=== PATIENT | female | born 1945 | race Caucasian/White ===

== ENCOUNTER → 2017-06-04 | Outpatient (CLI) | payer MEDICARE ==
[~2017-06-04] MED LIST: ALB083NB3 NEB; CLOTRIMAZOLE15 GM TOP; CYMBALTA PO; CYMBALTA30 MG PO; CYMBALTA60 MG PO; FENTANYL1 EAC1 TOP; FINASTERIDE5 MG PO; GABAPENTIN600 MG PO; GLUCOPHAGE XL500 MG PO; IMDUR30 MG PO; LEVOCETIRIZINE D5 MG; LIPITOR20 MG PO; LISINOPRIL5 MG PO; LOPRESSOR25 MG PO; MAGNESIUM DR64 MG; MIRALAX17 GM; NEXIUM40 MG PO; NITROFURANTOIN PO; NORCO 10-325 T1 EACH PO; NORCO PO; NOVOLOG MI100 UNIT/1 SQ; NOVOLOG MIX 70-33 M1 SQ; NOVOLOG100 UNITS1 SQ; OMEPRAZOLE40 MG; OXYBUTYNIN CHLOR5 MG PO; POTASSIUM CHLOR8 ME1 PO; PRADAXA PO; PRADAXA150 MG; PREDNISONE10 MG PO; REQUIP2 MG PO; SUCRALFATE1 GM PO; TOPROL PO; TRAZODONE HCL50 MG PO; Z NEURONTIN PO; Z PRESERVISION PO; Z REQUIP PO; Z.0.ADVAIR 250-501 E IH; Z.0.IMDUR30 MG PO; Z.0.OXYBUTYNIN CHLOR PO; Z.0.TOVIAZ8 MG PO; Z.0.VYTORIN 10-201 E PO; ZAROXOLYN; ZAROXOLYN PO; ZAROXOLYN5 MG PO
--- NOTE | 2017-06-04 09:59 | Diagnostic Imaging Report ---
PROCEDURE:ABDOMINAL ULTRASOUND COMPARISON:None. INDICATIONS:Cirrhosis, Screening for malignant neoplasm FINDINGS: Liver: 15.3 cm. Normal hepatic parenchymal echogenicity. No focal mass. Main portal vein: 1.2 cm. Hepatopedal flow. Gallbladder: No echogenic calculi, gallbladder wall thickening, or pericholecystic fluid. Common Bile Duct: 3.0 mm. No echogenic filling defect. Sonographic Luis's sign: Negative. Right kidney: 11.6 cm. No solid or cystic mass, echogenic calculi, or hydronephrosis. Normal parenchymal echogenicity. Left kidney: 10.7 cm. No solid or cystic mass, echogenic calculi, or hydronephrosis. Normal parenchymal echogenicity. Spleen: 10.9 cm. No focal mass. Calcifications are present in the spleen. Pancreas: The visualized portions of the pancreas are normal. Inferior vena cava: Normal. Aorta: Normal. Ascites: None. CONCLUSION: No acute sonographic abnormality. Dictated by: Odilon Gallardo M.D. on 06/04/2017 at 10:00 Electronically approved by: Odilon Gallardo M.D. on 06/04/2017 at 10:00
== END ==
LOC: US 07:55
PROVIDERS: ATTEND Family Medicine
DX: K74.60 Unspecified cirrhosis of liver (principal); Z12.9 Encounter for screening for malignant neoplasm, site unspecified
CPT/HCPCS: 76700

== ENCOUNTER → 2017-12-03 | Outpatient (CLI) | payer MEDICARE ==
[~2017-12-03] MED LIST changes: +XIFAXAN550 MG
--- NOTE | 2017-12-04 13:37 | Diagnostic Imaging Report ---
PROCEDURE:ABDOMINAL ULTRASOUND COMPARISON:Abdominal ultrasound 05/25/17. INDICATIONS:CIRRHOSIS OF LIVER & ABDO PAIN FINDINGS: Liver: Measures 14.2 cm. Normal hepatic parenchymal echogenicity. No focal mass. Main portal vein: Measures 0.7 cm, Hepatopetal flow. Gallbladder: No evidence of wall thickening, pericholecystic fluid, or stone. Common Bile Duct: No echogenic filling defect. Measures 0.4 cm. Sonographic Luis's sign: Negative. Right kidney: Measures 10.4 cm. No solid or cystic mass, echogenic calculi, or hydronephrosis. Normal parenchymal echogenicity. Left kidney: Measures 10 cm. No solid or cystic mass, echogenic calculi, or hydronephrosis. Normal parenchymal echogenicity. Spleen: Measures 12.5 cm. Splenic calcifications are noted. Pancreas: There is a hypoechoic lesion measuring 1.6 x 1.2 x 1.6 cm in the head of the pancreas without demonstrated vascular flow. Inferior vena cava: Normal. Aorta: Atherosclerotic calcifications. Ascites: None. CONCLUSION: Hypoechoic pancreatic head lesion measuring up to 1.6 cm without demonstrated flow. This is incompletely characterized by ultrasound, and an MRI is recommended for further evaluation. Dictated by: FAY HICKMAN M.D. on 12/04/2017 at 13:45 Electronically approved by: FAY HICKMAN M.D. on 12/04/2017 at 13:45
== END ==
LOC: US 08:19
PROVIDERS: ATTEND Internal Medicine Gastroenterology
DX: R10.9 Unspecified abdominal pain (principal)
CPT/HCPCS: 76700

== ENCOUNTER → 2017-12-18 | Day surgery (SDC) | payer MEDICARE ==
[2017-12-16 12:22] LABS: BASOPHILS # (AUTO) 0.1 (0.0-0.1); BASOPHILS % 0.5 % (0.0-1.0); EOSINOPHILS # (AUTO) 0.3 (0.0-0.4); EOSINOPHILS % 3.1 % (0.0-6.0); HEMATOCRIT 41.9 % (34.2-44.1); LYMPHOCYTES # (AUTO) 2.1 (1.0-3.2); LYMPHOCYTES % 18.8 % (18.0-39.1); MEAN CORPUSCULAR HEMOGLOBIN 26.3 pg (28-32); MEAN CORPUSCULAR VOLUME 84.6 fL (81-99); MONOCYTES # (AUTO) 0.7 (0.2-0.8); MONOCYTES % 6.3 % (4.4-11.3); NEUTROPHILS # (AUTO) 7.8 (2.1-6.9); NEUTROPHILS % 70.9 % (38.7-80.0); PLATELET COUNT 232 x10e3/uL (140-360); RED BLOOD COUNT 4.95 x10e6/uL (3.6-5.1); RED CELL DISTRIBUTION WIDTH 14.7 % (11.7-14.4)
[~2017-12-18] MED LIST changes: +FENTANYL CITRATE/PF 100MCG/2 ML INJ ONE; +LIDOCAINE HCL 2% LOCAL INJ 5 ML SDV VIAL INJ ONE; +MIDAZOLAM HCL 2 MG/2 ML VIAL ONE; +ONDANSETRON HCL INJ 2 MG/ML VIAL ONE; +PROPOFOL IV EMULSION 10 MG/ML 50 ML VIAL ONE
--- OUTSIDE RECORDS SUMMARY | 2017-12-18 07:43 | XMS REPORT | Clinical Summary ---
Author Author OPAL [facility] Address Unknown Phone Unavailable Care Team Providers Care Director Of Finance Name Role Phone Tc Rider PCP Allergies Comments Active Allergy Reactions Severity Noted Date Baclofen 09/23/2016 Clindamycin 09/23/2016 Minocycline 09/23/2016 Promethazine 09/23/2016 Methocarbamol 09/23/2016 Medications End Date Status Medication Sig Dispensed Refills Start Date Active DULoxetine (CYMBALTA) 30 Take 30 mg by 0 MG capsule mouth 2 (two) times daily 30mg x2 in AM 30 mg x 1 in PM. Active finasteride (PROSCAR) 5 Take 2.5 mg 0 mg tablet by mouth daily. Active isosorbide mononitrate Take 30 mg by 0 (IMDUR) 30 MG 24 hr mouth daily. tablet Active lisinopril Take 5 mg by 0 (PRINIVIL,ZESTRIL) 5 MG mouth daily. tablet Active gabapentin (NEURONTIN) Take 600 mg 0 600 MG tablet by mouth 2 (two) times daily. Active oxybutynin (DITROPAN) 5 Take 5 mg by 0 MG tablet mouth 2 (two) times daily. Active omeprazole (PRILOSEC) 40 Take 40 mg by 0 MG capsule mouth daily. Active potassium chloride Take 8 mEq by 0 (KLOR-CON) 8 MEQ CR mouth daily. tablet Active rOPINIRole (REQUIP) 3 MG Take 3 mg by 0 tablet mouth nightly. Active sucralfate (CARAFATE) 1 Take 1 g by 0 gram tablet mouth 4 (four) times daily. Active metoprolol (TOPROL-XL) 25 Take 25 mg by 0 MG 24 hr tablet mouth daily. Active traZODone (DESYREL) 50 MG Take 50 mg by 0 tablet mouth nightly. Active metOLazone (ZAROXOLYN) 10 Take 10 mg by 0 MG tablet mouth 2 (two) times daily. Active fentaNYL (DURAGESIC) 75 Place 1 patch 5 patch 0 mcg/hr patch onto the skin 7 every third day. Max Daily Amount: 1 patch Active INSULIN LISPRO Inject 0 PROTAMIN/LISPRO (HUMALOG subcutaneousl MIX 75-25 KWIKPEN SUBQ) y 28 u daily. Active dabigatran (PRADAXA) 150 Take by mouth 0 mg Cap capsule 2 (two) times daily. Active ALBUTEROL INHL Inhale by 0 mouth via inhaler 2 (two) times daily . Active rifAXIMin 550 mg Tab Take 1 tablet 30 tablet 11 (550 mg 8 total) by mouth 2 (two) times daily. 10/29/2017 Discontinued levocetirizine (XYZAL) 5 Take 5 mg by 0 MG tablet mouth every evening. 10/29/2017 Discontinued morphine (MS CONTIN) 15 Take 1 tablet 0 MG 12 hr tablet (15 mg total) 7 by mouth every 8 (eight) hours as needed for Pain. Max Daily Amount: 45 mg 10/29/2017 Discontinued HYDROmorphone (DILAUDID) Take 4 mg by 0 4 MG tablet mouth every 8 (eight) hours as needed for Pain. Active Problems Problem Noted Date Cirrhosis 09/23/2016 Last Assessment & Plan: Cirrhosis diagnosis based on imaging findings of nodularity. No decompensation at this time. Due to a family history of liver cancer, she has requested a full work up for possible etiologies. Most likely due to non alcoholic fatty liver disease with risk factors of metabolic syndrome. Cirrhosis education was done today. Literature provided. Based on labs over the past 2 months, she appears stable. At this time, a liver biopsy would likely not change management coordinator. A comprehensive work up will be completed with recommendations to follow. Type 2 diabetes mellitus 09/23/2016 Immunity status testing 09/23/2016 Last Assessment & Plan: Serological tests will be completed to determine the presence of immunity to hepatitis A and B. If the patient does not have adequate immunity, we would recommend administration of appropriate vaccination as per CDC guidelines by the primary care provider. Review of recent immunization per patient report is the prevnar 13, and tetanus vaccine up date. Metabolic syndrome 09/23/2016 Last Assessment & Plan: Risk factors for metabolic syndrome include obesity, hyperlipidemia, type II DM and hypertension. Counseling done on diet modification since she will likely have difficult with exercise due to chronic pain syndromes. Weight loss goal of 1 pound per week is recommended. She has lost over 100 pounds through diet changes which likely has improved the suspected fatty liver. Screening for malignant neoplasm 09/23/2016 Last Assessment & Plan: Cirrhosis, regardless of etiology, is a risk factor for development of hepatocellular carcinoma. The annual incidence of HCC varies from 1.5-7%. Thus, we recommend surveillance for HCC be performed using contrast MRI or CT imaging and alphafetoprotein every [address] scan 07/2016 showed no suspicious masses. Follow up due in 6 months. Osteoarthritis of multiple joints 09/23/2016 Last Assessment & Plan: Reports treatment with fentanyl patch. This is acceptable. No NSAIDS should be used. Tylenol/acetaminophen should be limited to 2000 mg in 24 hours if needed. Encounters Care Team Description Date Type Specialty Chanda Reno MA 12/11/2017 Telephone Hepatology Chanda Reno MA Rec CD 12/09/2017 Telephone Hepatology Radha Neville RN needs our address 12/05/2017 Telephone Hepatology Radha Neville RN protein diet 11/18/2017 Telephone Hepatology Rebecca Hwang 11/03/2017 Abstract HepatRadha Egan RN 10/31/2017 Documentation Hepatology Gutierrez Melgoza MD Hall, Sophia Marie, NP Cirrhosis of liver without ascites, unspecified hepatic cirrhosis type (HCC) (Primary Dx); Type 2 diabetes mellitus with complication, unspecified whether middle or intermediate school principal insulin use (HCC); Immunity status testing; Metabolic syndrome; Screening for malignant neoplasm; Osteoarthritis of multiple joints, unspecified osteoarthritis type; Encephalopathy, portal systemic (HCC) 10/29/2017 Office Visit Hepatology Mack Al NP 08/29/2017 Documentation Hepatology Angie Khan 06/30/2017 Abstract Hepatology Rebecca Hwang 06/03/2017 Abstract HepatRadha Egan RN 06/02/2017 Documentation Hepatology Radha Neville RN 05/26/2017 Documentation Hepatology Radha Neville RN Labs Only 05/20/2017 Telephone Hepatology Gutierrez Melgoza MD Fuller, Arian [place], NP Cirrhosis of liver without ascites, unspecified hepatic cirrhosis type (HCC) (Primary Dx); Screening for malignant neoplasm; Osteoarthritis of multiple joints, unspecified osteoarthritis type; Immunity status testing; Metabolic syndrome 05/16/2017 Office Visit Hepatology after 12/17/2016 Immunizations Name Dates Previously Given Next Due Hepatitis A 05/22/2017 Hepatitis B 05/22/2017 Pneumococcal Conjugate 06/23/2016 (Prevnar) 13-Valent Tdap 07/24/2016 Family History Medical History Relation Name Comments Heart disease Brother Diabetes Father Heart disease Father Cancer Maternal Grandmother Cancer Mother Relation Name Status Comments Brother Father Maternal Grandmother Mother Social History Date Tobacco Use Types Packs/Day Years Used Never Smoker Alcohol Use Drinks/Week oz/Week Comments No Sex Assigned at Date Recorded Not on file Industry Job Start Date Occupation Not on file Not on file Not on file Travel End Travel History Travel Start No recent travel history available. Last Filed Vital Signs Time Taken Vital Sign Reading 10/29/2017 10:02 AM CDT Blood Pressure 114/65 10/29/2017 10:02 AM CDT Pulse 72 10/29/2017 10:02 AM CDT Temperature 36.8 C (98.3 F) 10/29/2017 10:02 AM CDT Respiratory Rate 16 10/29/2017 10:02 AM CDT Oxygen Saturation 93% - Inhaled Oxygen - Concentration 10/29/2017 10:02 AM CDT Weight 89.3 kg (196 lb 14.4 oz) 10/29/2017 10:02 AM CDT Height 151.1 cm (4' 11.5") 10/29/2017 10:02 AM CDT Body Mass Index 39.1 Plan of Treatment Care Team Description Date Type Specialty Gutierrez Melgoza MD [address] [address] [place], [facility] 04/27/2018 Office Visit Hepatology Health Maintenance Due Date Last Done Comments INFLUENZA VACCINE 11/17/2017 Procedures Comments Procedure Name Priority Date/Time Associated Diagnosis CBC W/PLT COUNT & AUTO Routine 10/29/2017 Cirrhosis of liver DIFFERENTIAL 11:22 AM CDT without ascites, unspecified hepatic cirrhosis type (HCC) ALPHA FETOPROTEIN (AFP), Routine 10/29/2017 Screening for malignant TUMOR MARKER 11:22 AM CDT neoplasm PROTHROMBIN TIME/INR Routine 10/29/2017 Cirrhosis of liver 11:22 AM CDT without ascites, unspecified hepatic cirrhosis type (HCC) CBC W/PLT COUNT & AUTO Routine 10/29/2017 Cirrhosis of liver DIFFERENTIAL 11:22 AM CDT without ascites, unspecified hepatic cirrhosis type (HCC) HEPATIC FUNCTION PANEL Routine 10/29/2017 Cirrhosis of liver 11:22 AM CDT without ascites, unspecified hepatic cirrhosis type (HCC) BASIC METABOLIC PANEL (7) Routine 10/29/2017 Cirrhosis of liver 11:22 AM CDT without ascites, unspecified hepatic cirrhosis type (HCC) after 12/17/2016 Results * CBC with platelet count + automated diff (10/29/2017 11:22 AM CDT) WBC 10.5 3.5 - 10.5 K/L [facility] RBC 5.12 3.93 - 5.22 M/L [facility] Hemoglobin 13.0 11.2 - 15.7 GM/DL [facility] Hematocrit 42.7 34.1 - 44.9 % [facility] MCV 83.4 79.4 - 94.8 fL [facility] MCH 25.4 (L) 25.6 - 32.2 pg [facility] MCHC 30.4 (L) 32.2 - 35.5 GM/DL [facility] RDW 15.1 (H) 11.7 - 14.4 % [facility] Platelets 272 150 - 450 K/CU MM [facility] MPV 11.5 9.4 - 12.3 fL [facility] nRBC 0 0 - 0 /100 WBC [facility] % Neutros 72 % [facility] % Lymphs 18 % [facility] % Monos 6 % [facility] % Eos 3 % [facility] % Baso 1 % [facility] # Neutros 7.56 (H) 1.56 - 6.13 K/L [facility] # Lymphs 1.88 1.18 - 3.74 K/L [facility] # Monos 0.65 (H) 0.24 - 0.36 K/L [facility] # Eos 0.33 0.04 - 0.36 K/L [facility] # Baso 0.06 0.01 - 0.08 K/L [facility] Immature 1 0 - 1 % [facility] Granulocytes-[facility] Specimen Blood Performing Organization Address City/State/[place] [address] [phone] * Alpha fetoprotein (AFP), tumor marker (10/29/2017 11:22 AM CDT) Alpha-Fetoprotein 2.3 <10.0 ng/mL [facility] Specimen Blood Performing Organization Address City/[facility]/[place] [phone] * Pro-time/INR (10/29/2017 11:22 AM CDT) Protime 16.4 (H) 11.7 - 14.7 seconds [facility] INR 1.3 <=5.9 [facility] Specimen Blood Narrative Performed At RECOMMENDED COUMADIN/WARFARIN INR THERAPY RANGES [facility] STANDARD DOSE: 2.0 - 3.0 Includes: PROPHYLAXIS for venous thrombosis, [facility] systemic embolization; TREATMENT for venous thrombosis and/or pulmonary embolus. HIGH RISK: Target INR is 2.5-3.5 for patients with mechanical heart valves. Performing Organization Address [facility] Phone Number [place] [phone] [place] [address] [facility] * Hepatic function panel (10/29/2017 11:22 AM CDT) Protein, Total 7.3 6.0 - 8.3 gm/dL [facility] Albumin 4.0 3.5 - 5.0 g/dL [facility] Total Bilirubin 0.5 0.2 - 1.2 mg/dL [facility] Bilirubin, Direct 0.2 0.1 - 0.5 mg/dL [facility] Alkaline Phosphatase 102 40 - 150 U/L [facility] AST 21 5 - 34 U/L [facility] ALT 13 6 - 55 U/L [facility] Specimen Blood Performing Organization Address City/[facility] Phone Number [facility] [address] [place] [address] [facility] * Basic Metabolic Panel (10/29/2017 11:22 AM CDT) Sodium 139 136 - 145 meq/L [facility] Potassium 3.3 (L) 3.5 - 5.1 meq/L [facility] Chloride 99 98 - 107 meq/L [facility] CO2 31 (H) 22 - 29 meq/L [facility] BUN 14 7 - 21 mg/dL [facility] Creatinine 0.80 0.57 - 1.25 mg/dL [facility] Glucose 94 70 - 105 mg/dL [facility] Calcium 9.5 8.4 - 10.2 mg/dL [facility] EGFR 70Comment: ESTIMATED GFR IS mL/min/1.73 sq m [facility] NOT ACCURATE CREATININE [facility] CLEARANCE IN PREDICTING GLOMERULAR FILTRATION RATE. ESTIMATED GFR IS NOT APPLICABLE FOR DIALYSIS PATIENTS. Specimen Blood Performing Organization Address City/State/Zipcode Phone Number [facility] [address] [place] [address] [facility] after 12/17/2016 Insurance Payer Benefit Subscriber ID Type Phone Address Plan / Group HU[employer] - MEDICARE MGD HUMANA xxxxxxxxx [facility] MEDICARE Contracted ADV
--- OUTSIDE RECORDS SUMMARY | 2017-12-18 07:44 | XMS REPORT | Summary of Care ---
Author Organization Unknown Address Unknown Phone Unavailable Encounter [facility](FRED) [id number] Date(s): 08/16/14 - 08/16/14 [facility] [address] [place] [address]- [phone] Discharge Disposition: Home Physician Attending: Nate Solo MD Physician_Referring: Nate Solo MD Vital Signs 1 2 3 Most recent to oldest [Reference Range]: 160.02 cm (08/10/14 2:21 PM) Height 98.7 DegF (08/10/14 2:21 PM) Temperature Oral [96.4-99.1 DegF] 110/62 mmHg (08/16/14 5:15 PM) 106/61 mmHg (08/16/14 4:30 PM) 151/72 mmHg *HI* (08/16/14 1:47 PM) Blood Pressure [90-140/60-90 mmHg] 15 BRMIN (08/16/14 4:30 PM) 12 BRMIN *LOW* (08/16/14 1:47 PM) 20 BRMIN (08/10/14 2:21 PM) Respiratory Rate [14-20 BRMIN] 60 bpm (08/10/14 2:21 PM) Peripheral Pulse Rate [60-100 bpm] 96.818 kg (08/10/14 2:21 PM) Weight 37.81 m2 (08/10/14 2:21 PM) Body Mass Index Problem List Condition Effective Dates Status Health Status Informant Aneurysm(Confirmed)1 Resolved Arthritis(Confirmed) Active Atrial Resolved fibrillation(Confirm ed) Back Active problem(Confirmed)2 CAD - Coronary Active artery disease(Confirmed) Cancer(Confirmed)3 Resolved Defibrillator(Confir Resolved med)4 Diabetes Active mellitus(Confirmed) Diabetic Active neuropathy(Confirmed ) Heart Resolved attack(Confirmed)5 MRSA(Confirmed) Resolved Patient with Active combination internal cardiac defibrillator (ICD) and pacemaker(Confirmed) Restless legs Active syndrome(Confirmed) Sarcoidosis(Confirme Resolved d) Shoulder Active pain(Confirmed)6 SOB - Shortness of Active breath(Confirmed)7 1brain bleed - [place] medically no surgery 2lower back 3scalp [id number] 6right 7with heavy activity Allergies, Adverse Reactions, Alerts Substance Reaction Severity Status clindamycin Active minocycline Active Phenergan Active Robaxin Active Medications Lactated Ringers Injection IV 1000 mL 1,000 mL, Rate: 25 ml/hr, Infuse over: 40 hr, Route: IV, Dosing Weight 96.818 kg , Total Volume: 1,000, Start date: 08/16/14 14:05:00, Duration: 30 day, Stop frankie e: 09/15/14 14:04:00 Start Date: 08/16/14 Stop Date: 08/16/14 Status: Discontinued Results ELECTROLYTES Most recent to 1 oldest [Reference Range]: Sodium Lvl [135-145 139 mEq/L mEq/L] (08/10/14 2:38 PM) Potassium Lvl 3.7 mEq/L [3.5-5.1 mEq/L] (08/10/14 2:38 PM) Chloride Lvl [95-109 98 mEq/L mEq/L] (08/10/14 2:38 PM) CO2 [24-32 mEq/L] 38 mEq/L *HI* (08/10/14 2:38 PM) AGAP [10.0-20.0 6.7 mEq/L mEq/L] *LOW* (08/10/14 2:38 PM) CHEM PANEL Most recent to 1 oldest [Reference Range]: Creatinine Lvl 0.7 mg/dL [0.5-1.4 mg/dL] (08/10/14 2:38 PM) eGFR 88 mL/min/1.73m2 1 *NA* (08/10/14 2:38 PM) BUN [7-22 mg/dL] 14 mg/dL (08/10/14 2:38 PM) Glucose Lvl [70-99 102 mg/dL 2 mg/dL] *HI* (08/10/14 2:38 PM) Calcium Lvl 9.6 mg/dL [8.5-10.5 mg/dL] (08/10/14 2:38 PM) 1Result Comment: The eGFR is calculated using the CKD-EPI formula. In most young, healthy individuals the eGFR will be >90 mL/min/1.73m2. The eGFR declines with age. An eGFR of 60-89 may be normal in some populations, particularly the elderly, for whom the CKD-EPI formula has not been extensively validated. Use of the eGFR is not recommended in the following populations: Individuals with unstable creatinine concentrations, including patients and those with serious co-morbid conditions. Patients with extremes in muscle mass or diet. The data above are obtained from the National Kidney Disease Education Program ( NKDEP) which additionally recommends that when the eGFR is used in patients with extremes of body mass index for purposes of drug dosing, the eGFR should be mul tiplied by the estimated BMI. 2Interpretive Data: Adult reference range values reflect the clinical guidelines of the [place] [employer]. HEMATOLOGY Most recent to 1 oldest [Reference Range]: Hgb [12.0-16.0 g/dL] 14.1 g/dL (08/10/14 2:38 PM) Hct [36.0-48.0 %] 42.9 % (08/10/14 2:38 PM) Immunizations No data available for this section Procedures Procedure Date Related Diagnosis Body Site Appendectomy Arthroscopy of knee1 Automatic defibrillator procedure Cataract surgery Coronary bypass graft angiography2 CTR - Carpal tunnel release3 Hernia repair Operation4 Repair of vaginal wall prolapse 1left and right [id number] 3bilateral 4insertion of defibrillator with pacemaker Social History Social History Type Response Smoking Status Never smoker; Exposure to Tobacco Smoke None; Cigarette Smoking Last 365 Days No; Reg Smoking Cessation Counseling No Assessment and Plan Extracted from: Title: lumbar facets and SI joint Author: Nate Solo MD Date: 08/16/14 injections OP note - lumbar facet and sacroiliac joint injection The procedure was performed at [facility] H&P, done within the past 30 days, was reviewed with patient prior to the procedure and patient denies significant changes. PATIENT NAME: Janice Brewer DATE OF : 43 REFERRAL SOURCE: Tessa Rhonda DATE OF PROCEDURE: 08/16/14 SURGEON: Nate Solo M.D. PRE-PROCEDURE DIAGNOSIS: LUMBOSACRAL SPONDYLOSIS POST-PROCEDURE DIAGNOSIS: LUMBOSACRAL SPONDYLOSIS PROCEDURES: Lumbar facet joint injections - bilateral L4-L5, L5-S1 Sacroiliac joint injection - bilateral .MD: FLUORO NEEDLE/CATH SPINE/PARASPINAL DX/THER : 12230 ANESTHESIA: total intravenous anesthetic (TIVA) ESTIMATED BLOOD LOSS: Minimal IV FLUIDS: Per anesthetic/nursing record COMPLICATIONS: None PROCEDURE IN DETAIL: The patient was identified in the procedure room. Risks, benefits, and alternatives were discussed, all questions were answered, and the patient desired to proceed. Consent was noted in the chart and a time out was performed. Then the patient was made comfortable in the prone position on the procedure table. Pressure points were checked and padded awake. Vital signs were stable. An antiseptic solution was used over the area followed by sterile draping. Fluoroscopy was used to optimize the approach over the facet joints. A skin wheal was raised with lidocaine 1% using a 25 gauge 1.5 inch needle and carried deep into the tissue plane of injection. A 22 gauge 3.5 inch spinal needle was advanced under fluoroscopic guidance through the anesthetized plane into the right L4-L5 facet joint. Then a similar technique was used for needle placement in the right L5-S1 and left L4-L5, L5-S1 facet joint. Aspiration was negative at each site. Then 1 ml a solution of 2mL triamcinolone 40 mg/mL, 4mL 0.9% normal saline, and 4mL bupivacaine 0.25% was injected into the each of the joints. The needles were then removed and noted to be intact. Pressure was held at the puncture sites to prevent ecchymosis and oozing. The sites were then cleaned and band-aids were placed. The following sacroiliac joint injection was also performed: Fluoroscopy was used to optimize the approach over the right sacroiliac joint. A skin wheal was raised with lidocaine 1% using a 25 gauge 1.5 inch needle and carried deep into the tissue plane of injection. Then a 22 gauge 3.5 inch spinal needle was advanced under fluoroscopic guidance through the anesthetized plane into the inferior pole of the right joint. Aspiration was negative. Then 0.5mL of Omnipaque 300 was injected demonstrating spread in the joint. Next, 8 ml of a solution of 2 mL triamcinolone 40mg/mL, 4mL 0.9% normal saline, and 4mL bupivacaine 0.25% was injected into the joint in equal divided doses showing dilution of the dye on fluoroscopy. The needle was withdrawn and noted to be intact. The same technique was used on the left joint. Pressure was held at the puncture site(s) to prevent ecchymosis and oozing, and covered by a band-aid. The patient was transferred to a stretcher and taken to the recovery area in stable condition. The patient tolerated the procedure well, suffered no apparent adverse events, and was then discharge to the care of a responsible adult when criteria met.
--- OUTSIDE RECORDS SUMMARY | 2017-12-18 07:44 | XMS REPORT | Continuity of Care Document ---
Author Author [facility] Interface Address Unknown Phone Unavailable Problems Problem Status Onset Date Classification Date Reported Comments Source UNK Active 08/09/2015 [facility] BIPAP S/T -43033 WITH OXYGEN Active 03/29/2015 [facility] BIPAP ST/ WITH O2 Active 03/29/2015 [facility] BIPAP S/T WITH OXYGEN 05427 Active 03/21/2015 [facility] BIPAP S/T -73048 Active 07/14/2014 [facility] 338.4/721.3 Active 06/01/2014 [facility] ASV TITRATION-07006 Active 05/05/2014 [facility] FIRST NIGHT-42845 Active 04/18/2014 [facility] LEAD EXTRACTION Active 09/13/2013 [facility] CHRONIC SYSTOLIC HEART FAILURE, ATRIAL F Active 09/13/2013 [facility] 428.22 427.31 427.41 V45.02 Active 09/09/2013 [facility] 836.0 836.1 717.7 732.7 719.26/85205 298 Active 02/04/2013 [facility] Aneurysm<sup>1</sup> Resolved Problem 08/19/2014 1brain bleed - [place] medically no surgery [facility] Arthritis Active Problem 08/19/2014 [facility] Atrial fibrillation Resolved Problem 08/19/2014 [facility] Back problem<sup>2</sup> Active Problem 08/19/2014 2lower back [facility] CAD - Coronary artery disease Active Problem 08/19/2014 [facility] Cancer<sup>3</sup> Resolved Problem 08/19/2014 3scalp [facility] Defibrillator<sup>4</sup> Resolved Problem 08/19/2014 [address]46 [facility] Diabetes mellitus Active Problem 08/19/2014 [facility] Diabetic neuropathy Active Problem 08/19/2014 [facility] Heart attack<sup>5</sup> Resolved Problem 08/19/2014 70480 [facility] MRSA Resolved Problem 08/19/2014 [facility] Patient with combination internal cardiac defibrillator and pacemaker(<span ID="[id number]">Confirmed</span>) Active Problem 08/19/2014 [facility] Restless legs syndrome Active Problem 08/19/2014 [facility] Sarcoidosis Resolved Problem 08/19/2014 [facility] Shoulder pain<sup>6</sup> Active Problem 08/19/2014 6right [facility] SOB - Shortness of breath<sup>7</sup> Active Problem 08/19/2014 7with heavy activity [facility] Rhabdomyolysis Active Problem 09/18/2013 [facility] SOB - Shortness of breath<sup>6</sup> Active Problem 09/18/2013 6with heavy activity [facility] CHR SYSTOLIC HRT FAILURE Active [facility] ATRIAL FIBRILLATION Active [facility] VENTRICULAR FIBRILLATION Active [facility] JOINT PAIN-ANKLE Active [facility] ENCOUNTER FOR OTHER PREPROCEDURAL EXAMIN Active [facility] OBSTRUCTIVE SLEEP APNEA (ADULT) (PEDIATR Active [facility] Medications Medication Details Route Status Patient Instructions Ordering Provider Order Date Source Calcium Chloride 0.0014 MEQ/ML / Potassium Chloride 0.004 MEQ/ML / Sodium Chloride 0.103 MEQ/ML / Sodium Lactate 0.028 MEQ/ML Injectable Solution 1,000 mL, Rate: 25 ml/hr, Infuse over: 40 hr, Route: IV, Dosing Weight 96.818 kg, Total Volume: 1,000, Start date: 08/16/14 14:05:00, Duration: 30 day, Stop date: 09/15/14 14:04:00 Inactive 08/16/2014 [facility] Acetaminophen 325 MG / Hydrocodone Bitartrate 10 MG Oral Tablet [Charlotte 10/325] 1-2 tab, PO, Q4-6H, Pain, # 24 tab, 0 Refill(s) Active 09/16/2013 [facility] minocycline 100 mg oral capsule 100 mg=1 cap, PO, Q12H, # 14 cap, 0 Refill(s) Active 09/16/2013 [facility] Mag-Ox 400 800 mg, 2 tab, Route: PO, Drug form: TAB, ONCE, Dosing Weight 95.909, kg, Start date: 09/16/13 10:17:00, Stop date: 09/16/13 10:17:00Notes: (Same as: Mag-Ox 400) Magnesium oxide [id number] elemental ma gnesium Dose=____mg magnesium oxide (___mg elemental magnesium) Inactive 09/16/2013 [facility] Lisinopril 5 mg, 1 tab, Route: PO, Drug form: TAB, Daily, Dosing Weight 95.909, kg, Start date: 09/16/13 9:00:00, Duration: 30 day, Stop date: 10/15/13 9:00:00Notes: (Same as: Prinivil, Zestril) Inactive 09/16/2013 [facility] Isosorbide 30 mg, 1 tab, Route: PO, Drug form: ERTAB, QAM, Dosing Weight 95.909, kg, Start date: 09/16/13 9:00:00, Duration: 30 day, Stop date: 10/15/13 9:00:00Notes: (Same as:Imdur) "Do Not Crush" Take on empty stomach/ full glass of water. Do not crush Inactive 09/16/2013 [facility] Cymbalta 60 mg, 1 cap, Route: PO, Drug form: DRC, Daily, Dosing Weight 95.909, kg, Start date: 09/16/13 9:00:00, Duration: 30 day, Stop date: 10/15/13 9:00:00Notes: (Same as: Cymbalta) (Do Not Crush) Inactive 09/16/2013 [facility] Potassium Chloride 16 mEq, 12 mL, Route: PO, Drug form: LIQ, Daily, Dosing Weight 95.909, kg, Start date: 09/16/13 9:00:00, Duration: 30 day, Stop date: 10/15/13 9:00:00Notes: (Same as: Potassium Chloride) Inactive 09/16/2013 [facility] Cymbalta 30 mg, 1 cap, Route: PO, Drug form: DRC, Bedtime, Dosing Weight 95.909, kg, Start date: 09/15/13 21:00:00, Duration: 30 day, Stop date: 10/14/13 21:00:00Notes: (Same as: Cymbalta) (Do Not Crush) No Longer Active 09/16/2013 [facility] vancomycin 1 gm, Route: IVPB, Drug form: INJ, [id number], Dosing Weight 95.909, kg, Start date: 09/15/13 20:00:00, Duration: 1 day, Stop date: 09/16/13 8:00:00Notes: (Same As: Vancocin) No Longer Active 09/16/2013 [facility] oxybutynin 5 mg, 1 tab, Route: PO, Drug form: TAB, BID, Dosing Weight 95.909, kg, Start date: 09/15/13 17:00:00, Duration: 30 day, Stop date: 10/15/13 9:00:00Notes: Same as: Ditropan) No Longer Active 09/15/2013 [facility] Zaroxolyn 5 mg, 1 tab, Route: PO, Drug form: TAB, BID, Dosing Weight 95.909, kg, Start date: 09/15/13 17:00:00, Duration: 30 day, Stop date: 10/15/13 9:00:00Notes: (Same as: Zaroxolyn) No Longer Active 09/15/2013 [facility] 24 HR Metoprolol Tartrate 25 MG Extended Release Tablet [Toprol] 25 mg, 1 tab, Route: PO, Drug form: ERTAB, BID, Start date: 09/15/13 17:00:00, Duration: 30 day, Stop date: 10/15/13 9:00:00Notes: (Same as: Toprol XL) Do Not Crush No Longer Active 09/15/2013 [facility] NovoLOG FlexPen 3 unit, 0.03 mL, Route: SUB-Q, Drug form: SOLN, BID, Dosing Weight 95.909, kg, Start date: 09/15/13 17:00:00, Duration: 30 day, Stop date: 10/15/13 9:00:00Notes: Roll in palms of hands gently; Do not shake vigorously. (Same as: NovoLOG) "single patient use only" Stable for 28 days at room temperature. Expires in days from Date No Longer Active 09/15/2013 [facility] gabapentin 600 MG Oral Tablet 600 mg, 2 cap, Route: PO, Drug form: CAP, BID, Dosing Weight 95.909, kg, Start date: 09/15/13 17:00:00, Stop date: 10/15/13 9:00:00Notes: (Same as: Neurontin) No Longer Active 09/15/2013 [facility] Potassium Chloride 1.33 MEQ/ML Oral Solution 40 mEq, 30 mL, Route: PO, Drug form: LIQ, ONCE, Dosing Weight 95.909, kg, Start date: 09/15/13 14:13:00, Stop date: 09/15/13 14:13:00Notes: (Same as: Potassium Chloride) Inactive 09/15/2013 [facility] Magnesium Sulfate 2 gm, 50 mL, Route: IVPB, Drug form: INJ, Q2H, Dosing Weight 95.909, kg, Total dose=4 gm, Priority: STAT, Start date: 09/15/13 13:30:00, Duration: 2 doses or times, Stop date: 09/15/13 14:00:00 Inactive 09/15/2013 [facility] Potassium Chloride 20 mEq, 100 mL, Route: IVPB, Drug form: INJ, Q2H, Dosing Weight 95.909, kg, Total dose=40 mEq, Priority: STAT, Start date: 09/15/13 13:30:00, Duration: 2 doses or times, Stop date: 09/15/13 14:00:00Notes: (Same as: KCL) Infuse no faster than 10 mEq/hr if given peripherally. Inactive 09/15/2013 [facility] Requip 3 mg, 3 tab, Route: PO, Drug form: TAB, TID, Dosing Weight 95.909, kg, Start date: 09/15/13 13:00:00, Duration: 30 day, Stop date: 10/15/13 9:00:00Notes: (Same as: Requip) No Longer Active 09/15/2013 [facility] Vancomycin 1 gm, Route: IVPB, Drug form: INJ, [id number], Dosing Weight 95.909, kg, Start date: 09/15/13 11:00:00, Duration: 1 day, Stop date: 09/15/13 23:00:00Notes: (Same As: Vancocin) Inactive 09/15/2013 [facility] Albuterol 0.83 MG/ML Inhalant Solution 2.49 mg, 3 mL, Route: NEB, Drug form: SOLN, PRN, Dosing Weight 95.909, kg, PRN Respiratory Protocol, Start date: 09/15/13 10:55:00, Duration: 30 day, Stop date: 10/15/13 10:54:00Notes: SEE RT DOCUMENTATION (Same as: Proventil) No Longer Active 09/15/2013 [facility] Hydralazine 10 mg, 0.5 mL, Route: IVP, Drug form: INJ, Q20Min, Dosing Weight 95.909, kg, PRN Elevated BP, Start date: 09/15/13 10:55:00, Duration: 2 doses or times, Stop date: 09/16/13 0:00:00Notes: (Same as: Apresoline) Push over 5 minutes No Longer Active 09/15/2013 [facility] Meperidine 12.5 mg, 0.25 mL, Route: IVP, Drug form: INJ, Q30Min, Dosing Weight 95.909, kg, PRN Other -See Comment, For shivering, Start date: 09/15/13 10:55:00, Duration: 2 doses or times, Stop date: 09/16/13 0:00 :00Notes: (Same as: Demerol) "Use Precaution in Elderly, Seizure disorders, and Renal impairment" No Longer Active 09/15/2013 [facility] Hydromorphone 0.5 mg, 0.25 mL, Route: IVP, Drug form: INJ, Q5Min, Dosing Weight 95.909, kg, PRN Pain Score 7-10, Start date: 09/15/13 10:55:00, Duration: 4 doses or times, Stop date: 09/16/13 0:00:00Notes: Same as: Dilaudid No Longer Active 09/15/2013 [facility] Morphine 2 mg, 0.5 mL, Route: IVP, Drug form: INJ, Q5Min, Dosing Weight 95.909, kg, PRN Pain Score 4-6, Start date: 09/15/13 10:55:00, Duration: 5 doses or times, Stop date: 09/16/13 0:00:00Notes: (Same as:MORPhine Sulfate) No Longer Active 09/15/2013 [facility] Flumazenil 0.2 mg, 2 mL, Route: IVP, Drug form: INJ, PRN, Dosing Weight 95.909, kg, PRN Benzodiazepine Reversal, Initial dose, Start date: 09/15/13 10:55:00, Duration: 30 day, Stop date: 10/15/13 10:54:00Notes: (Same as: Romazicon) No Longer Active 09/15/2013 [facility] Naloxone 0.04 mg, 0.1 mL, Route: IVP, Drug form: INJ, Q2MIN, Dosing Weight 95.909, kg, PRN Narcotic Reversal, Start date: 09/15/13 10:55:00, Duration: 8 doses or times, Stop date: 09/16/13 0:00:00Notes: (Same as: Narcan) No Longer Active 09/15/2013 [facility] Labetalol 10 mg, 2 mL, Route: IVP, Drug form: INJ, Q5Min, Dosing Weight 95.909, kg, PRN Elevated BP, Start date: 09/15/13 10:55:00, Duration: 5 doses or times, Stop date: 09/16/13 0:00:00 No Longer Active 09/15/2013 [facility] Fentanyl 25 microgram, 0.5 mL, Route: IVP, Drug form: INJ, Q5Min, Dosing Weight 95.909, kg, PRN Pain Score 4-6, Start date: 09/15/13 10:55:00, Duration: 4 doses or times, Stop date: 09/16/13 0:00:00Notes: (Same as: Sublimaze) Preservative free. No Longer Active 09/15/2013 [facility] Ondansetron 4 mg, 2 mL, Route: IVP, Drug form: INJ, ONCE, Dosing Weight 95.909, kg, PRN Nausea & Vomiting, Start date: 09/15/13 10:55:00Notes: (Same as: Zofran) No Longer Active 09/15/2013 [facility] Midazolam 1 mg, 1 mL, Route: IVP, Drug form: INJ, Q5Min, Dosing Weight 95.909, kg, PRN Anxiety, Start date: 09/15/13 10:55:00, Duration: 2 doses or times, Stop date: 09/16/13 0:00:00Notes: (Same as: Versed) No Longer Active 09/15/2013 [facility] Acetaminophen 325 MG / Hydrocodone Bitartrate 10 MG Oral Tablet [Charlotte 10/325] 1 tab, Route: PO, Drug Form: TAB, Dosing Weight 95.909, kg, Q4H, PRN Pain, Start date: 09/15/13 10:20:00, Duration: 30 day, Stop date: 10/15/13 10:19:00Notes: Do not exceed 4gm/day of acetaminophen. (Same as: Charlotte 325/10) No Longer Active 09/15/2013 [facility] Morphine 2 mg, 0.5 mL, Route: IVP, Drug form: INJ, Q4H, Dosing Weight 95.909, kg, PRN Chest Pain, Start date: 09/15/13 10:20:00, Duration: 30 day, Stop date: 10/15/13 10:19:00Notes: (Same as:MORPhine Sulfate) No Longer Active 09/15/2013 [facility] Metolazone 10 MG Oral Tablet 0 Refill(s) No Longer Active 09/15/2013 [facility] ropinirole 3 MG Oral Tablet [Requip] 0 Refill(s) Active 09/15/2013 [facility] dabigatran etexilate 150 MG Oral Capsule [Pradaxa] 0 Refill(s) No Longer Active 09/15/2013 [facility] Potassium Chloride 0 Refill(s) Active 09/15/2013 [facility] oxybutynin 5 mg oral tablet 0 Refill(s) Active 09/15/2013 [facility] gabapentin 600 MG Oral Tablet [Neurontin] 0 Refill(s) No Longer Active 09/15/2013 [facility] Miralax 0 Refill(s) Active 09/15/2013 [facility] isosorbide mononitrate 30 mg oral tablet, extended release 0 Refill(s) Active 09/15/2013 [facility] lisinopril 5 mg oral tablet 0 Refill(s) Active 09/15/2013 [facility] fentaNYL 100 mcg/hr transdermal film, extended release 0 Refill(s) Active 09/15/2013 [facility] Vancomycin 1.5 gm, Route: IVPB, Drug form: INJ, ONCE, Dosing Weight 95.909, kg, Start date: 09/15/13 8:20:00, Stop date: 09/15/13 8:20:00 Inactive 09/15/2013 [facility] ketorolac 30 mg/mL injectable solution 60 mg, Route: IM, Drug form: INJ, ONCE, Dosing Weight 100, kg, Start date: 02/11/13 10:27:00, Stop date: 02/11/13 10:27:00 Inactive Martínez 02/11/2013 [facility] Lactated Ringers IV 1000 mL 1,000 mL, Rate: 25 ml/hr, Infuse over: 40 hr, Route: IV, Dosing Weight 100 kg, Total Volume: 1,000, Start date: 02/11/13 10:06:00, Duration: 30 day, Stop date: 03/13/13 10:05:00 Inactive Jana 02/11/2013 [facility] ondansetron 4 mg, 2 mL, Route: IVP, Drug form: INJ, ONCE, Dosing Weight 100, kg, PRN Nausea & Vomiting, Start date: 02/11/13 9:46:00(Same as: Zofran) Inactive Kurtis 02/11/2013 [facility] metoprolol 1 mg, 1 mL, Route: IVP, Drug form: INJ, Q5Min, Dosing Weight 100, kg, PRN Other -See Comment, Start date: 02/11/13 9:46:00, Duration: 5 doses or times, Stop date: Limited # of times(Same as: Lopressor) Push over 2 minutes Inactive Kurtis 02/11/2013 [facility] OXYcodone 5 mg, 1 tab, Route: PO, Drug form: TAB, Q4H, Dosing Weight 100, kg, PRN Pain Score 4-6, Start date: 02/11/13 9:46:00, Duration: 30 day, Stop date: 03/13/13 9:45:00(Same as: OxyIR) Inactive Kurtis 02/11/2013 [facility] hydromorphone 0.5 mg, 0.5 mL, Route: IVP, Drug form: INJ, Q5Min, Dosing Weight 100, kg, PRN Pain Score 7-10, Start date: 02/11/13 9:46:00, Duration: 4 doses or times, Stop date: Limited # of times Inactive Kurtis 02/11/2013 [facility] fentanyl 25 microgram, 0.5 mL, Route: IVP, Drug form: INJ, Q5Min, Dosing Weight 100, kg, PRN Pain Score 4-6, Start date: 02/11/13 9:46:00, Duration: 4 doses or times, Stop date: Limited # of times(Same as: Sublimaze) Preservative free. Inactive Kurtis 02/11/2013 [facility] morphine Sulfate 2 mg, 1 mL, Route: IVP, Drug form: INJ, Q5Min, Dosing Weight 100, kg, PRN Pain Score 4-6, Start date: 02/11/13 9:46:00, Duration: 5 doses or times, Stop date: Limited # of times(Same as:MORPhine Sulf ate) Inactive Kurtis 02/11/2013 [facility] flumazenil 0.2 mg, 2 mL, Route: IVP, Drug form: INJ, PRN, Dosing Weight 100, kg, PRN Benzodiazepine Reversal, Initial dose, Start date: 02/11/13 9:46:00, Duration: 30 day, Stop date: 03/13/13 9:45:00(Same as: R omazicon) Inactive Kurtis 02/11/2013 [facility] diphenhydrAMINE 12.5 mg, 0.25 mL, Route: IVP, Drug form: INJ, Q6H, Dosing Weight 100, kg, PRN Itching, Start date: 02/11/13 9:46:00, Duration: 30 day, Stop date: 03/13/13 9:45:00(Same as: Benadryl) Inactive Kurtis 02/11/2013 [facility] glycopyrrolate 0.2 mg, 1 mL, Route: IVP, Drug form: INJ, Q5Min, Dosing Weight 100, kg, PRN Bradycardia, Start date: 02/11/13 9:46:00, Duration: 3 doses or times, Stop date: Limited # of times(Same as: Robinul) Inactive Kurtis 02/11/2013 [facility] ephedrine 5 mg, 0.1 mL, Route: IVP, Drug form: INJ, Q5Min, Dosing Weight 100, kg, PRN Low Blood Pressure, Start date: 02/11/13 9:46:00, Duration: 30 day, Stop date: 03/13/13 9:45:00(Same as: Ephedrine Sulfate) Inactive Kurtis 02/11/2013 [facility] naloxone 0.04 mg, 0.1 mL, Route: IVP, Drug form: INJ, Q2MIN, Dosing Weight 100, kg, PRN Narcotic Reversal, Start date: 02/11/13 9:46:00, Duration: 8 doses or times, Stop date: Limited # of timesSame as Narcan Inactive Kurtis 02/11/2013 [facility] vancomycin 1 gm, Route: IVPB, ONCE, Dosing Weight 100, kg, Start date: 02/11/13 8:24:00, Stop date: 02/11/13 8:24:00 Inactive Martínez 02/11/2013 [facility] Lactated Ringers Injection IV 1000 mL 1,000 mL, Rate: 25 ml/hr, Infuse over: 40 hr, Route: IV, Dosing Weight 100 kg, Total Volume: 1,000, Start date: 02/11/13 8:14:00, Duration: 30 day, Stop date: 03/13/13 8:13:00 Inactive Jana 02/11/2013 [facility] Charlotte 10/325 oral tablet 1-2 tab, PO, Q4-6H, Pain, # 30 tab, 0 Refill(s) Active 02/05/2013 [facility] NovoLog FlexPen 3 unit, SUB-Q, BID, 0 Refill(s) Active 02/05/2013 [facility] Novolog Mix 70/30 PenFill SUB-Q, QID, based on sliding scale, 0 Refill(s)based on sliding scale Active 02/05/2013 [facility] Pradaxa 150 mg oral capsule PO, BID, 0 Refill(s) Active 02/05/2013 [facility] Toprol-XL 25 mg oral tablet, extended release 25 mg=1 tab, PO, BID, # 30 tab, 0 Refill(s) Active 02/05/2013 [facility] Zaroxolyn 5 mg oral tablet 5 mg=1 tab, PO, BID, # 30 tab, 0 Refill(s) Active 02/05/2013 [facility] gabapentin 600 mg oral tablet 1,200 mg=2 tab, PO, BID, # 270 tab, 0 Refill(s) Active 02/05/2013 [facility] Cymbalta 30 mg oral delayed release capsule 30 mg=1 cap, PO, Bedtime, # 30 cap, 0 Refill(s) Active 02/05/2013 [facility] Cymbalta 60 mg oral delayed release capsule 60 mg=1 cap, PO, Daily, # 30 cap, 0 Refill(s) Active 02/05/2013 [facility] Allergies, Adverse Reactions, Alerts Substance Category Reaction Severity Reaction type Status Date Reported Comments Source clindamycin Assertion Drug allergy Active [facility] minocycline Assertion Drug allergy Active [facility] Phenergan Assertion Drug allergy Active [facility] Robaxin Assertion Drug allergy Active [facility] Immunizations Immunization Date Given Site Status Last Updated Comments Source Results Order Name Results Value Reference Range Date Interpretation Comments Source ELECTROLYTES Sodium Lvl 139 meq/L 135 - 145 08/10/2014 [facility] ELECTROLYTES Potassium Lvl 3.7 meq/L 3.5 - 5.1 08/10/2014 [facility] ELECTROLYTES Chloride Lvl 98 meq/L 95 - 109 08/10/2014 [facility] ELECTROLYTES eGFR 88 mL/min/1.73m2 08/10/2014 1Result Comment: The eGFR is calculated using [...] from the National Kidney Disease Education Program (NKDEP) which additionally recommends that when the eGFR is used in patients with extremes of body mass index for purposes of drug dosing, the eGFR should be multiplied by the estimated BMI. [facility] ELECTROLYTES Calcium Lvl 9.6 mg/dL 8.5 - 10.5 08/10/2014 [facility] ELECTROLYTES Creatinine Lvl 0.7 mg/dL 0.5 - 1.4 08/10/2014 [facility] ELECTROLYTES CO2 38 meq/L 24 - 32 08/10/2014 [facility] ELECTROLYTES Glucose Lvl 102 mg/dL 70 - 99 08/10/2014 2Interpretive Data: Adult reference range values reflect the clinical guidelines of the [place] [employer]. [facility] ELECTROLYTES BUN 14 mg/dL 7 - 22 08/10/2014 [facility] ELECTROLYTES AGAP 6.7 meq/L 10.0 - 20.0 08/10/2014 [facility] HEMATOLOGY Hct 42.9 % 36.0 - 48.0 08/10/2014 [facility] HEMATOLOGY Hgb 14.1 g/dL 12.0 - 16.0 08/10/2014 [facility] Chest 2 views Chest 2 views CHEST 2 VIEWS dated 2013-09-16 11:59:00 COMPARISON: 09/15/2013 CLINICAL INDICATION: Tube placement/removal/reposition FINDINGS: Frontal and lateral chest radiographs are submitted for interpretation. Note again of left subclavian approach biventricular pacer/ICD with leads in right ventricle and through the coronary sinus. No pneumothorax or pleural effusions. Lung volumes are low. Subsegmental atelectasis is seen within left lower lobe. Cardiac silhouette and mediastinum are unchanged. IMPRESSION: Satisfactory appearance of biventricular pacer/ICD. 09/16/2013 - - Read by: Binu Arellano MD Dictated Date/time: 09/16/13 12:41 Electronically Signed by: Binu Arellano MD 09/16/13 12:43 FINAL REPORT [facility] CHEM PANEL Magnesium Lvl 1.4 mg/dL 1.8 - 2.4 09/16/2013 [facility] CHEM PANEL eGFR 107 mL/min/1.73m2 09/16/2013 3Result Comment: The eGFR is calculated using the [...] from the National Kidney Disease Education Program (NKDEP) which additionally recommends that when the eGFR is used in patients with extremes of body mass index for purposes of drug dosing, the eGFR should be multiplied by the estimated BMI. [facility] CHEM PANEL Chloride Lvl 103 meq/L 95 - 109 09/16/2013 [facility] CHEM PANEL CO2 26 meq/L 24 - 32 09/16/2013 [facility] CHEM PANEL Calcium Lvl 8.5 mg/dL 8.5 - 10.5 09/16/2013 [facility] CHEM PANEL BUN 11 mg/dL 7 - 22 09/16/2013 [facility] CHEM PANEL Glucose Lvl 108 mg/dL 70 - 99 09/16/2013 6Interpretive Data: Adult reference range values reflect the clinical guidelines of the [place] [employer]. [facility] CHEM PANEL Creatinine Lvl 0.4 mg/dL 0.5 - 1.4 09/16/2013 [facility] CHEM PANEL Sodium Lvl 141 meq/L 135 - 145 09/16/2013 [facility] CHEM PANEL Potassium Lvl 4.3 meq/L 3.5 - 5.1 09/16/2013 [facility] CHEM PANEL AGAP 16.3 meq/L 10.0 - 20.0 09/16/2013 [facility] HEMATOLOGY Segs 83.9 % 45.0 - 75.0 09/16/2013 [facility] HEMATOLOGY Eosinophils 2.5 % 0.0 - 4.0 09/16/2013 [facility] HEMATOLOGY Monocytes # 0.9 K/CMM 0.0 - 0.8 09/16/2013 [facility] HEMATOLOGY Segs-Bands # 10.2 K/CMM 1.5 - 8.1 09/16/2013 [facility] HEMATOLOGY Lymphocytes 6.2 % 20.0 - 40.0 09/16/2013 [facility] HEMATOLOGY Monocytes 7.1 % 2.0 - 12.0 09/16/2013 [facility] HEMATOLOGY Lymphocytes # 0.8 K/CMM 1.0 - 5.5 09/16/2013 [facility] HEMATOLOGY Basophils 0.3 % 0.0 - 1.0 09/16/2013 [facility] HEMATOLOGY Eosinophils # 0.3 K/CMM 0.0 - 0.5 09/16/2013 [facility] HEMATOLOGY MPV 10.5 fL 7.4 - 10.4 09/16/2013 [facility] HEMATOLOGY Platelet 191 K/CMM 133 - 450 09/16/2013 [facility] HEMATOLOGY RDW 14.7 % 11.5 - 14.5 09/16/2013 [facility] HEMATOLOGY MCHC 32.2 g/dL 32.0 - 36.0 09/16/2013 [facility] HEMATOLOGY Hct 41.0 % 36.0 - 48.0 09/16/2013 [facility] HEMATOLOGY Hgb 13.2 g/dL 12.0 - 16.0 09/16/2013 [facility] HEMATOLOGY RBC 4.71 M/CMM 4.20 - 5.40 09/16/2013 [facility] HEMATOLOGY WBC 12.2 K/CMM 3.7 - 10.4 09/16/2013 [facility] HEMATOLOGY MCV 87.0 fL 81.0 - 99.0 09/16/2013 [facility] HEMATOLOGY MCH 28.0 pg 27.0 - 31.0 09/16/2013 [facility] ELECTROLYTES Potassium Lvl 4.0 meq/L 3.5 - 5.1 09/16/2013 1Result Comment: Specimen Slightly Hemolyzed. [facility] CHEM PANEL Magnesium Lvl 1.8 mg/dL 1.8 - 2.4 09/15/2013 [facility] CHEM PANEL eGFR 99 mL/min/1.73m2 09/15/2013 4Result Comment: The eGFR is calculated using the [...] from the National Kidney Disease Education Program (NKDEP) which additionally recommends that when the eGFR is used in patients with extremes of body mass index for purposes of drug dosing, the eGFR should be multiplied by the estimated BMI. [facility] CHEM PANEL AGAP 9.0 meq/L 10.0 - 20.0 09/15/2013 [facility] CHEM PANEL Calcium Lvl 8.4 mg/dL 8.5 - 10.5 09/15/2013 [facility] CHEM PANEL CO2 30 meq/L 24 - 32 09/15/2013 [facility] CHEM PANEL Chloride Lvl 104 meq/L 95 - 109 09/15/2013 [facility] CHEM PANEL Sodium Lvl 140 meq/L 135 - 145 09/15/2013 [facility] CHEM PANEL Creatinine Lvl 0.5 mg/dL 0.5 - 1.4 09/15/2013 [facility] CHEM PANEL Potassium Lvl 3.0 meq/L 3.5 - 5.1 09/15/2013 2Result Comment: Critical Result(s) called to Leticia Hooks [id number] at 09/15/2013 13:[address] Read back OK. could not locate the pt/ pt out of PACU 09/15/2013 13:12 Rechecked. [facility] CHEM PANEL BUN 16 mg/dL 7 - 22 09/15/2013 [facility] CHEM PANEL Glucose Lvl 138 mg/dL 70 - 99 09/15/2013 7Interpretive Data: Adult reference range values reflect the clinical guidelines of the [place] [employer]. [facility] CHEM PANEL Magnesium Lvl 0.8 mg/dL 1.8 - 2.4 09/15/2013 [facility] CHEM PANEL Phosphorus 4.4 mg/dL 2.5 - 4.5 09/15/2013 [facility] HEMATOLOGY RBC Morph Normal (09/15/13 12:00 PM) 09/15/2013 [facility] HEMATOLOGY Monocytes 6.7 % 2.0 - 12.0 09/15/2013 [facility] HEMATOLOGY Lymphocytes 9.8 % 20.0 - 40.0 09/15/2013 [facility] HEMATOLOGY Eosinophils 2.8 % 0.0 - 4.0 09/15/2013 [facility] HEMATOLOGY Segs 80.3 % 45.0 - 75.0 09/15/2013 [facility] HEMATOLOGY Plt Morph See Note 9 (09/15/13 12:00 PM) 09/15/2013 9Result Comment: Due to occassional clumps, the actual count may be slightly higher. [facility] HEMATOLOGY Basophils 0.4 % 0.0 - 1.0 09/15/2013 [facility] HEMATOLOGY Lymphocytes # 1.2 K/CMM 1.0 - 5.5 09/15/2013 [facility] HEMATOLOGY Eosinophils # 0.3 K/CMM 0.0 - 0.5 09/15/2013 [facility] HEMATOLOGY Segs-Bands # 9.7 K/CMM 1.5 - 8.1 09/15/2013 [facility] HEMATOLOGY Monocytes # 0.8 K/CMM 0.0 - 0.8 09/15/2013 [facility] HEMATOLOGY MCH 27.8 pg 27.0 - 31.0 09/15/2013 [facility] HEMATOLOGY RBC 4.36 M/CMM 4.20 - 5.40 09/15/2013 [facility] HEMATOLOGY MPV 9.7 fL 7.4 - 10.4 09/15/2013 [facility] HEMATOLOGY RDW 14.2 % 11.5 - 14.5 09/15/2013 [facility] HEMATOLOGY Platelet 176 K/CMM 133 - 450 09/15/2013 [facility] HEMATOLOGY MCHC 33.0 g/dL 32.0 - 36.0 09/15/2013 [facility] HEMATOLOGY Hgb 12.1 g/dL 12.0 - 16.0 09/15/2013 [facility] HEMATOLOGY MCV 84.2 fL 81.0 - 99.0 09/15/2013 [facility] HEMATOLOGY Hct 36.7 % 36.0 - 48.0 09/15/2013 [facility] HEMATOLOGY WBC 12.0 K/CMM 3.7 - 10.4 09/15/2013 [facility] Chest 1view Chest 1view EXAM: CHEST 1 VIEW DATE: Sep 15, 2013 04:28:00 PM INDICATION: Tube placement/removal/reposition COMPARISON: Prior study dated 03/28/2006 TECHNIQUE: Single portable radiograph of the chest FINDINGS: The previously identified dual lead pacing device overlying the left chest wall has been removed assess the prior leads. A new dual lead pacing device has been placed with 2 new leads seen overlying the expected position of the right left ventricle. The battery pack overlies left chest wall. The cardiac silhouette is mildly enlarged. There is mild central pulmonary venous congestion and subsegmental discoid atelectasis seen in the left lung base and right infrahilar lung zone. No pneumothorax is seen on this portable semierect film. There is increased opacification of the left retrocardiac airspace. The bony structures and soft tissues are unremarkable. IMPRESSION: 1. Placement of a new dual lead pacing device and battery pack in position as described above, correlate with expected function. 2. Mild central pulmonary venous congestion, correlate for symptoms of volume overload. 3. Increased left retrocardiac opacification, findings could reflect atelectasis, retrocardiac airspace disease, and/or a posterior layering effusion. 4. Left basilar and right infrahilar subsegmental atelectasis 09/15/2013 - - Read by: Presley Walker MD Dictated Date/time: 09/15/13 18:08 Electronically Signed by: Presley Walker MD 09/15/13 18:11 FINAL REPORT [facility] BLOOD BANK RESULTS Antibody Scrn Negative (09/15/13 6:57 AM) 09/15/2013 [facility] BLOOD BANK RESULTS ABO/Rh O POS 09/15/2013 [facility] CHEM PANEL Globulin 3.2 g/dL 2.0 - 4.0 09/15/2013 [facility] CHEM PANEL AGAP 8.6 meq/L 10.0 - 20.0 09/15/2013 [facility] CHEM PANEL A/G Ratio 1.1 0.7 - 1.6 09/15/2013 [facility] CHEM PANEL B/C Ratio 30 6 - 25 09/15/2013 [facility] CHEM PANEL eGFR 93 mL/min/1.73m2 09/15/2013 5Result Comment: The eGFR is calculated using the [...] from the National Kidney Disease Education Program (NKDEP) which additionally recommends that when the eGFR is used in patients with extremes of body mass index for purposes of drug dosing, the eGFR should be multiplied by the estimated BMI. [facility] CHEM PANEL AST 25 unit/L 0 - 37 09/15/2013 [facility] CHEM PANEL Total Protein 6.7 g/dL 6.4 - 8.4 09/15/2013 [facility] CHEM PANEL Glucose Lvl 121 mg/dL 70 - 99 09/15/2013 8Interpretive Data: Adult reference range values reflect the clinical guidelines of the [place] [employer]. [facility] CHEM PANEL Albumin Lvl 3.5 g/dL 3.5 - 5.0 09/15/2013 [facility] CHEM PANEL Alk Phos 82 unit/L 39 - 136 09/15/2013 [facility] CHEM PANEL BUN 18 mg/dL 7 - 22 09/15/2013 [facility] CHEM PANEL Creatinine Lvl 0.6 mg/dL 0.5 - 1.4 09/15/2013 [facility] CHEM PANEL Sodium Lvl 141 meq/L 135 - 145 09/15/2013 [facility] CHEM PANEL CO2 35 meq/L 24 - 32 09/15/2013 [facility] CHEM PANEL Calcium Lvl 9.4 mg/dL 8.5 - 10.5 09/15/2013 [facility] CHEM PANEL Chloride Lvl 101 meq/L 95 - 109 09/15/2013 [facility] CHEM PANEL Bili Total 0.5 mg/dL 0.2 - 1.3 09/15/2013 [facility] CHEM PANEL ALT 23 unit/L 0 - 65 09/15/2013 [facility] HEMATOLOGY MPV 9.7 fL 7.4 - 10.4 09/15/2013 [facility] HEMATOLOGY MCHC 33.0 g/dL 32.0 - 36.0 09/15/2013 [facility] HEMATOLOGY Platelet 193 K/CMM 133 - 450 09/15/2013 [facility] HEMATOLOGY RDW 14.3 % 11.5 - 14.5 09/15/2013 [facility] HEMATOLOGY RBC 4.54 M/CMM 4.20 - 5.40 09/15/2013 [facility] HEMATOLOGY Hgb 12.6 g/dL 12.0 - 16.0 09/15/2013 [facility] HEMATOLOGY MCV 84.2 fL 81.0 - 99.0 09/15/2013 [facility] HEMATOLOGY MCH 27.8 pg 27.0 - 31.0 09/15/2013 [facility] HEMATOLOGY Hct 38.2 % 36.0 - 48.0 09/15/2013 [facility] HEMATOLOGY WBC 8.7 K/CMM 3.7 - 10.4 09/15/2013 [facility] HEMATOLOGY INR 1.16 0.85 - 1.17 09/15/2013 10Interpretive Data: RECOMMENDED RANGES FOR PROTIME INR: 2.0-3.0 for most medical and surgical thromboembolic states. 2.5-3.5 for artificial heart valves and recurrent embolism. INR SHOULD BE USED ONLY FOR PATIENTS ON STABLE ANTICOAGULANT THERAPY. [facility] HEMATOLOGY PTT 34.8 s 22.9 - 35.8 09/15/2013 11Interpretive Data: Heparin Therapeutic Range: 57 - 92 Seconds [facility] HEMATOLOGY PT 14.7 s 12.0 - 14.7 09/15/2013 [facility] HEMATOLOGY Eosinophils # 0.5 K/CMM 0.0 - 0.5 09/15/2013 [facility] HEMATOLOGY Lymphocytes # 1.8 K/CMM 1.0 - 5.5 09/15/2013 [facility] HEMATOLOGY Monocytes # 0.7 K/CMM 0.0 - 0.8 09/15/2013 [facility] HEMATOLOGY Basophils 0.5 % 0.0 - 1.0 09/15/2013 [facility] HEMATOLOGY Segs-Bands # 5.7 K/CMM 1.5 - 8.1 09/15/2013 [facility] HEMATOLOGY Eosinophils 5.8 % 0.0 - 4.0 09/15/2013 [facility] HEMATOLOGY Monocytes 8.5 % 2.0 - 12.0 09/15/2013 [facility] HEMATOLOGY Segs 65.0 % 45.0 - 75.0 09/15/2013 [facility] HEMATOLOGY Lymphocytes 20.2 % 20.0 - 40.0 09/15/2013 [facility] BEDSIDE GLUCOSE TESTING Glucose POC 168 mg/dL 70 - 99 02/11/2013 [place] 1Interpretive Data: Upper Reportable Limit: 200 mg/dL. [facility] BEDSIDE GLUCOSE TESTING Gluc POC Comment 1 Notified RN/MD 02/11/2013 [facility] BEDSIDE GLUCOSE TESTING Glucose POC 156 mg/dL 70 - 99 02/11/2013 [place] 2Interpretive Data: Upper Reportable Limit: 200 mg/dL. [facility] CHEMISTRY eGFR 97 mL/min/1.73m2 02/05/2013 3Result Comment: The eGFR is calculated using the [...] from the National Kidney Disease Education Program (NKDEP) which additionally recommends that when the eGFR is used in patients with extremes of body mass index for purposes of drug dosing, the eGFR should be multiplied by the estimated BMI. [facility] CHEMISTRY BUN 12 mg/dL 7 - 22 02/05/2013 Normal [facility] CHEMISTRY Glucose Lvl 160 mg/dL 70 - 99 02/05/2013 [place] 4Interpretive Data: Adult reference range values reflect the clinical guidelines of the [place] [employer]. [facility] CHEMISTRY Calcium Lvl 9.4 mg/dL 8.5 - 10.5 02/05/2013 Normal [facility] CHEMISTRY CO2 31 meq/L 24 - 32 02/05/2013 Normal [facility] CHEMISTRY Chloride Lvl 99 meq/L 95 - 109 02/05/2013 Normal [facility] CHEMISTRY Creatinine Lvl 0.7 mg/dL 0.5 - 1.4 02/05/2013 Normal [facility] CHEMISTRY Potassium Lvl 3.5 meq/L 3.5 - 5.1 02/05/2013 Normal [facility] CHEMISTRY Sodium Lvl 137 meq/L 135 - 145 02/05/2013 Normal [facility] CHEMISTRY AGAP 10.5 meq/L 10.0 - 20.0 02/05/2013 Normal [facility] HEMATOLOGY Platelet 239 K/CMM 133 - 450 02/05/2013 Normal [facility] HEMATOLOGY MPV 8.8 fL 7.4 - 10.4 02/05/2013 Normal [facility] HEMATOLOGY MCHC 33.3 g/dL 32.0 - 36.0 02/05/2013 Normal [facility] HEMATOLOGY RDW 15.5 % 11.5 - 14.5 02/05/2013 HI [facility] HEMATOLOGY WBC X 10x3 9.9 K/CMM 3.7 - 10.4 02/05/2013 Normal [facility] HEMATOLOGY Hct 40.6 % 36.0 - 48.0 02/05/2013 Normal 7Result Comment: Reference range changed due to change in patient's gender at 08:21:37. Normal Low changed from 42.0 to 36.0. Normal High changed from 54.0 to 48.0. Result flag changed from L to within range. [facility] MCV 87.7 fL 81.0 - 99.0 02/05/2013 Normal 8Result Comment: Reference range changed due to change in patient's gender at 08:21:37. Normal Low changed from 80.0 to 81.0. Normal High changed from 94.0 to 99.0. Result flag not changed. [facility] MCH 29.2 pg 27.0 - 31.0 02/05/2013 Normal [facility] RBC X 10x6 4.63 M/CMM 4.20 - 5.40 02/05/2013 Normal 5Result Comment: Reference range changed due to change in patient's gender at 08:21:37. Normal Low changed from 4.70 to 4.20. Normal High changed from 6.10 to 5.40. Result flag changed from L to within range. [facility] Hgb 13.5 g/dL 12.0 - 16.0 02/05/2013 Normal 6Result Comment: Reference range changed due to change in patient's gender at 08:21:37. Normal Low changed from 14.0 to 12.0. Normal High changed from 18.0 to 16.0. Result flag changed from L to within range. [facility] Segs-Bands # 6.6 K/CMM 1.5 - 8.1 02/05/2013 Normal [facility] Lymphocytes # 2.2 K/CMM 1.0 - 5.5 02/05/2013 Normal [facility] Basophils # 0.0 K/CMM 0.0 - 0.2 02/05/2013 Normal [facility] Eosinophils # 0.4 K/CMM 0.0 - 0.5 02/05/2013 Normal [facility] HEMATOLOGY Monocytes # 0.6 K/CMM 0.0 - 0.8 02/05/2013 Normal [facility] HEMATOLOGY Eosinophils 4.4 % 0.0 - 4.0 02/05/2013 [place] [facility] HEMATOLOGY Basophils 0.3 % 0.0 - 1.0 02/05/2013 Normal [facility] HEMATOLOGY Lymphocytes 22.0 % 20.0 - 40.0 02/05/2013 Normal [facility] HEMATOLOGY Monocytes 6.4 % 2.0 - 12.0 02/05/2013 Normal [facility] HEMATOLOGY Segs 66.9 % 45.0 - 75.0 02/05/2013 Normal [facility] Vital Signs Vital Sign Value Date Comments Source Systolic (mm Hg) 110 08/16/2014 [facility] Diastolic (mm Hg) 62 08/16/2014 [facility] Respitory Rate 15 08/16/2014 [facility] Systolic (mm Hg) 106 08/16/2014 [facility] Diastolic (mm Hg) 61 08/16/2014 [facility] Systolic (mm Hg) 151 08/16/2014 [facility] Diastolic (mm Hg) 72 08/16/2014 [facility] Respitory Rate 12 08/16/2014 [facility] Heart Rate 60 08/10/2014 [facility] Temperature Oral (F) 98.7 F 08/10/2014 [facility] Respitory Rate 20 08/10/2014 [facility] Weight 96.818 08/10/2014 [facility] BMI Calculated 37.81 08/10/2014 [facility] Height 160.02 cm 08/10/2014 [facility] Diastolic (mm Hg) 66 09/16/2013 [facility] Systolic (mm Hg) 130 09/16/2013 [facility] Respitory Rate 26 09/16/2013 [facility] Respitory Rate 17 09/16/2013 [facility] Diastolic (mm Hg) 60 09/16/2013 [facility] Systolic (mm Hg) 131 09/16/2013 [facility] Temperature Oral (F) 98.7 F 09/16/2013 [facility] Diastolic (mm Hg) 58 09/16/2013 [facility] Systolic (mm Hg) 119 09/16/2013 [facility] Respitory Rate 20 09/16/2013 [facility] Temperature Oral (F) 98.2 F 09/16/2013 [facility] Temperature Oral (F) 97.9 F 09/16/2013 [facility] BMI Calculated 37.46 09/15/2013 [facility] Height 160.02 cm 09/15/2013 [facility] Weight 95.909 09/15/2013 [facility] Weight 95.909 09/15/2013 [facility] BMI Calculated 37.46 09/15/2013 [facility] Height 160.02 cm 09/15/2013 [facility] Respitory Rate 17 02/11/2013 [facility] Diastolic (mm Hg) 64 02/11/2013 [facility] Systolic (mm Hg) 141 02/11/2013 [facility] Diastolic (mm Hg) 80 02/11/2013 [facility] Respitory Rate 18 02/11/2013 [facility] Systolic (mm Hg) 143 02/11/2013 [facility] Respitory Rate 16 02/11/2013 [facility] Diastolic (mm Hg) 81 02/11/2013 [facility] Systolic (mm Hg) 160 02/11/2013 [facility] Heart Rate 69 02/11/2013 [facility] Temperature Oral (F) 97.8 F 02/05/2013 [facility] Heart Rate 69 02/05/2013 [facility] Weight 100 02/05/2013 [facility] Height 160.02 cm 02/05/2013 [facility] Encounters Location Location Details Encounter Type Encounter Number Reason For Visit Attending Provider ADM Date DC Date Status Source [facility] DS [id number] BOAZ MARTÍNEZ 02/11/2013 02/11/2013 Active [facility] OBS Observation Patient [id number] Love Maurer 09/15/2013 09/16/2013 [facility] Outpatient [id number] Brendan Zarate 04/21/2014 04/21/2014 [facility] Outpatient [id number] Non Physician 07/21/2014 07/22/2014 [facility] OBS Day Surgery [id number] Nate Germania 08/16/2014 08/16/2014 [facility] Outpatient [id number] Kerry Zarate 04/01/2015 04/01/2015 [facility] Procedures Procedure Code Date Perfomer Comments Source Appendectomy [id number] [facility] Arthroscopy of knee<sup>1</sup> [id number] 1left and right [facility] Automatic defibrillator procedure [id number] [facility] Cataract surgery [id number] [facility] Coronary bypass graft angiography<sup>2</sup> [id number] [facility] CTR - Carpal tunnel release<sup>3</sup> [id number] 3bilateral [facility] Hernia repair [id number] [facility] Operation<sup>4</sup> [id number] 4insertion of defibrillator with pacemaker [facility] Repair of vaginal wall prolapse [id number] [facility] Coronary bypass graft angiography<sup>1</sup> [id number] [facility]
--- OUTSIDE RECORDS SUMMARY | 2017-12-18 07:44 | XMS REPORT | CCD ---
Author Author Auto Generated Organization [facility] Address Unknown Phone Unavailable Care Team Providers Care Automobile Tire Builder Name Role Phone Preston Perez RP Allergies, Adverse Reactions, Alerts Substance Reaction Status Phenergan Active Problem List Condition Effective Dates Status Aneurysm1 Resolved Arthritis Active Atrial fibrillation Active Back problem2 Active CAD - Coronary artery disease Active Cancer3 Resolved Defibrillator4 Active Diabetes mellitus Active Heart attack5 Resolved Rhabdomyolysis Active Sarcoidosis Active SOB - Shortness of breath6 Active 1brain bleed - [place] medically no surgery 2lower back 3scalp [id number] 6with heavy activity Medications Medication Instructions Start Date End Date Status Pradaxa 150 mg oral PO, BID, 0 Refill(s) 02/05/2013 Ordered capsule Toprol-XL 25 mg oral 25 mg=1 tab, PO, BID, # 30 tab, 0 02/05/2013 Ordered tablet, extended Refill(s) release Zaroxolyn 5 mg oral 5 mg=1 tab, PO, BID, # 30 tab, 0 02/05/2013 Ordered tablet Refill(s) gabapentin 600 mg 1,200 mg=2 tab, PO, BID, # 270 tab, 02/05/2013 Ordered oral tablet 0 Refill(s) ketorolac 30 mg/mL 60 mg, Route: IM, Drug form: INJ, 02/11/2013 02/11/2013 Completed injectable solution ONCE, Dosing Weight 100, kg, Start date: 02/11/13 10:27:00, Stop date: 02/11/13 10:27:00 Cymbalta 30 mg oral 30 mg=1 cap, PO, Bedtime, # 30 cap, 02/05/2013 Ordered delayed release 0 Refill(s) capsule Cymbalta 60 mg oral 60 mg=1 cap, PO, Daily, # 30 cap, 0 02/05/2013 Ordered delayed release Refill(s) capsule [place] 10/325 oral 1-2 tab, PO, Q4-6H, Pain, # 30 tab, 02/05/2013 02/10/2013 Ordered tablet 0 Refill(s) NovoLog FlexPen 3 unit, SUB-Q, BID, 0 Refill(s) 02/05/2013 Ordered Novolog Mix 70/30 SUB-Q, QID, based on sliding scale, 02/05/2013 Ordered PenFill 0 Refill(s) based on sliding scale Lactated Ringers IV 1,000 mL, Rate: 25 ml/hr, Infuse 02/11/2013 02/11/2013 Deleted 1000 mL over: 40 hr, Route: IV, Dosing Weight 100 kg, Total Volume: 1,000, Start date: 02/11/13 10:06:00, Duration: 30 day, Stop date: 03/13/13 10:05:00 Lactated Ringers 1,000 mL, Rate: 25 ml/hr, Infuse 02/11/2013 02/11/2013 Discontinued Injection IV 1000 mL over: 40 hr, Route: IV, Dosing Weight 100 kg, Total Volume: 1,000, Start date: 02/11/13 8:14:00, Duration: 30 day, Stop date: 03/13/13 8:13:00 ondansetron 4 mg, 2 mL, Route: IVP, Drug form: 02/11/2013 02/11/2013 Discontinued INJ, ONCE, Dosing Weight 100, kg, PRN Nausea & Vomiting, Start date: 02/11/13 9:46:00(Same as: Zofran) metoprolol 1 mg, 1 mL, Route: IVP, Drug form: 02/11/2013 02/11/2013 Discontinued INJ, Q5Min, Dosing Weight 100, kg, PRN Other -See Comment, Start date: 02/11/13 9:46:00, Duration: 5 doses or times, Stop date: Limited # of times(Same as: Lopressor)Push over 2 minutes OXYcodone 5 mg, 1 tab, Route: PO, Drug form: 02/11/2013 02/11/2013 Discontinued TAB, Q4H, Dosing Weight 100, kg, PRN Pain Score 4-6, Start date: 02/11/13 9:46:00, Duration: 30 day, Stop date: 03/13/13 9:45:00(Same as: OxyIR) hydromorphone 0.5 mg, 0.5 mL, Route: IVP, Drug 02/11/2013 02/11/2013 Discontinued form: INJ, Q5Min, Dosing Weight 100, kg, PRN Pain Score 7-10, Start date: 02/11/13 9:46:00, Duration: 4 doses or times, Stop date: Limited # of times fentanyl 25 microgram, 0.5 mL, Route: IVP, 02/11/2013 02/11/2013 Discontinued Drug form: INJ, Q5Min, Dosing Weight 100, kg, PRN Pain Score 4-6, Start date: 02/11/13 9:46:00, Duration: 4 doses or times, Stop date: Limited # of times(Same as: Sublimaze) Preservative free. morphine Sulfate 2 mg, 1 mL, Route: IVP, Drug form: 02/11/2013 02/11/2013 Discontinued INJ, Q5Min, Dosing Weight 100, kg, PRN Pain Score 4-6, Start date: 02/11/13 9:46:00, Duration: 5 doses or times, Stop date: Limited # of times(Same as:MORPhine Sulfate) flumazenil 0.2 mg, 2 mL, Route: IVP, Drug 02/11/2013 02/11/2013 Discontinued form: INJ, PRN, Dosing Weight 100, kg, PRN Benzodiazepine Reversal, Initial dose, Start date: 02/11/13 9:46:00, Duration: 30 day, Stop date: 03/13/13 9:45:00(Same as: Romazicon) diphenhydrAMINE 12.5 mg, 0.25 mL, Route: IVP, Drug 02/11/2013 02/11/2013 Discontinued form: INJ, Q6H, Dosing Weight 100, kg, PRN Itching, Start date: 02/11/13 9:46:00, Duration: 30 day, Stop date: 03/13/13 9:45:00(Same as: Benadryl) glycopyrrolate 0.2 mg, 1 mL, Route: IVP, Drug 02/11/2013 02/11/2013 Discontinued form: INJ, Q5Min, Dosing Weight 100, kg, PRN Bradycardia, Start date: 02/11/13 9:46:00, Duration: 3 doses or times, Stop date: Limited # of times(Same as: Robinmaría) ephedrine 5 mg, 0.1 mL, Route: IVP, Drug 02/11/2013 02/11/2013 Discontinued form: INJ, Q5Min, Dosing Weight 100, kg, PRN Low Blood Pressure, Start date: 02/11/13 9:46:00, Duration: 30 day, Stop date: 03/13/13 9:45:00(Same as: Ephedrine Sulfate) naloxone 0.04 mg, 0.1 mL, Route: IVP, Drug 02/11/2013 02/11/2013 Discontinued form: INJ, Q2MIN, Dosing Weight 100, kg, PRN Narcotic Reversal, Start date: 02/11/13 9:46:00, Duration: 8 doses or times, Stop date: Limited # of timesSame as Narcan vancomycin 1 gm, Route: IVPB, ONCE, Dosing 02/11/2013 02/11/2013 Completed Weight 100, kg, Start date: 02/11/13 8:24:00, Stop date: 02/11/13 8:24:00 Vital Signs Most recent to oldest [Reference Range]: 1 2 3 Height 160.02 cm (02/05/2013 14:00:00) Temperature Oral [96.4-99.1 DegF] 97.8 DegF (02/05/2013 15:23:00) Systolic Blood Pressure [90-140 mmHg] 141 mmHg *HI* (02/11/2013 12:00:00) 143 mmHg *HI* (02/11/2013 11:45:00) 160 mmHg *HI* (02/11/2013 11:30:00) Diastolic Blood Pressure [60-90 mmHg] 64 mmHg (02/11/2013 12:00:00) 80 mmHg (02/11/2013 11:45:00) 81 mmHg (02/11/2013 11:30:00) Respiratory Rate [14-20 BRMIN] 17 BRMIN (02/11/2013 12:00:00) 18 BRMIN (02/11/2013 11:45:00) 16 BRMIN (02/11/2013 11:30:00) Peripheral Pulse Rate [60-100 bpm] 69 bpm (02/11/2013 08:29:00) 69 bpm (02/05/2013 15:23:00) Weight 100 kg (02/05/2013 14:00:00) Results BEDSIDE GLUCOSE TESTING Most recent to oldest [Reference Range]: 1 2 Glucose POC [70-99 mg/dL] 168 mg/dL 1 *HI* (02/11/2013 09:59:00) 156 mg/dL 2 *HI* (02/11/2013 08:02:00) Gluc POC Comment 1 Notified RN/MD *NA* (02/11/2013 09:59:00) 1Interpretive Data: Upper Reportable Limit: 200 mg/dL. 2Interpretive Data: Upper Reportable Limit: 200 mg/dL. CHEMISTRY Most recent to oldest [Reference Range]: 1 2 Sodium Lvl [135-145 mEq/L] 137 mEq/L (02/05/2013 14:35:00) Potassium Lvl [3.5-5.1 mEq/L] 3.5 mEq/L (02/05/2013 14:35:00) Chloride Lvl [95-109 mEq/L] 99 mEq/L (02/05/2013 14:35:00) CO2 [24-32 mEq/L] 31 mEq/L (02/05/2013 14:35:00) AGAP [10.0-20.0 mEq/L] 10.5 mEq/L (02/05/2013 14:35:00) Creatinine Lvl [0.5-1.4 mg/dL] 0.7 mg/dL (02/05/2013 14:35:00) eGFR 97 mL/min/1.73m2 3 *NA* (02/05/2013:35:00) BUN [7-22 mg/dL] 12 mg/dL (02/05/2013 14:35:00) Glucose Lvl [70-99 mg/dL] 160 mg/dL 4 *HI* (02/05/2013 14:35:00) Calcium Lvl [8.5-10.5 mg/dL] 9.4 mg/dL (02/05/2013 14:35:00) 3Result Comment: The eGFR is calculated using [...] be mul tiplied by the estimated BMI. 4Interpretive Data: Adult reference range values reflect the clinical guidelines of the [place] [employer]. HEMATOLOGY Most recent to oldest [Reference Range]: 1 2 WBC [3.7-10.4 K/CMM] 9.9 K/CMM (02/05/2013 14:35:00) RBC [4.20-5.40 M/CMM] 4.63 M/CMM 5 (02/05/2013:35:) Hgb [12.0-16.0 g/dL] 13.5 g/dL 6 (02/05/2013 14:35:00) Hct [36.0-48.0 %] 40.6 % 7 (02/05/2013 14:35:00) MCV [81.0-99.0 fL] 87.7 fL 8 (02/05/2013:35:00) MCH [27.0-31.0 pg] 29.2 pg (02/05/2013:35:00) MCHC [32.0-36.0 g/dL] 33.3 g/dL (02/05/2013:35:00) RDW [11.5-14.5 %] 15.5 % *HI* (02/05/2013:35:) Platelet [133-450 K/CMM] 239 K/CMM (02/05/2013:35:00) MPV [7.4-10.4 fL] 8.8 fL (02/05/2013:35:00) Segs [45.0-75.0 %] 66.9 % (02/05/2013:35:00) Lymphocytes [20.0-40.0 %] 22.0 % (02/05/2013 14:35:00) Monocytes [2.0-12.0 %] 6.4 % (02/05/2013 14:35:00) Eosinophils [0.0-4.0 %] 4.4 % *HI* (02/05/2013 14:35:00) Basophils [0.0-1.0 %] 0.3 % (02/05/2013 14:35:00) Segs-Bands # [1.5-8.1 K/CMM] 6.6 K/CMM (02/05/2013 14:35:00) Lymphocytes # [1.0-5.5 K/CMM] 2.2 K/CMM (02/05/2013 14:35:00) Monocytes # [0.0-0.8 K/CMM] 0.6 K/CMM (02/05/2013 14:35:00) Eosinophils # [0.0-0.5 K/CMM] 0.4 K/CMM (02/05/2013 14:35:00) Basophils # [0.0-0.2 K/CMM] 0.0 K/CMM (02/05/2013 14:35:00) 5Result Comment: Reference range changed due to change in patient's gender at 08:21:37. Normal Low changed from 4.70 to 4.20. Normal High changed from 6.10 to 5.40. Result flag changed from L to within range. 6Result Comment: Reference range changed due to change in patient's gender at 08:21:37. Normal Low changed from 14.0 to 12.0. Normal High changed from 18.0 to 16.0. Result flag changed from L to within range. 7Result Comment: Reference range changed due to change in patient's gender at 08:21:37. Normal Low changed from 42.0 to 36.0. Normal High changed from 54.0 to 48.0. Result flag changed from L to within range. 8Result Comment: Reference range changed due to change in patient's gender at 08:21:37. Normal Low changed from 80.0 to 81.0. Normal High changed from 94.0 to 99.0. Result flag not changed. Procedures Procedures Date Related Diagnosis Appendectomy Automatic defibrillator procedure Cataract surgery Coronary bypass graft angiography1 Hernia repair [id number]
--- OUTSIDE RECORDS SUMMARY | 2017-12-18 07:44 | XMS REPORT | CCD ---
Author Author Auto Generated Organization [facility] Address Unknown Phone Unavailable Care Team Providers Care Floor Installation Mechanic Name Role Phone Preston Perez RP Allergies, [...] [place] medically no surgery 2lower back 3scalp [id number] 6with heavy activity Medications Medication Instructions Start [...] 0 02/05/2013 Ordered delayed release Refill(s) capsule [place] 10/325 oral 1-2 tab, PO, Q4-6H, Pain, [...] values reflect the clinical guidelines of the [place] [employer]. HEMATOLOGY Most recent to oldest [...] surgery Coronary bypass graft angiography1 Hernia repair [id number]
--- OUTSIDE RECORDS SUMMARY | 2017-12-18 07:44 | XMS REPORT | Summary of Care ---
Author Organization Unknown Address Unknown Phone Unavailable Encounter HQ Valentin_vonnie(FRED) [id number] Date(s): 04/20/14 - 04/20/14 [facility] [address] [place] [address]- Discharge Disposition: Home Physician Attending: Brendan Zarate MD Physician_Referring: Brendan Zarate MD Vital Signs No data available for this section Problem List Condition Effective Dates Status Health [...] [place] medically no surgery 2lower back 3scalp [id number] 6right 7with heavy activity Allergies, Adverse Reactions, Alerts Substance Reaction Severity Status clindamycin Active minocycline Active Phenergan Active Robaxin Active Medications No data available for this section Results No data available for this section Immunizations No data available for this section Procedures No data available for this section Social History Social History Type Response Smoking Status Never smoker; Exposure to Tobacco Smoke None; Cigarette Smoking Last 365 Days No; Reg Smoking Cessation Counseling No Assessment and Plan No data available for this section
--- OUTSIDE RECORDS SUMMARY | 2017-12-18 07:44 | XMS REPORT | Summary of Care ---
Author Organization Unknown Address Unknown Phone Unavailable Encounter [facility] Lainez(FRED) [id number] Date(s): 07/21/14 - 07/21/14 [facility] [address] [place] [address]- [phone] Discharge Disposition: Home Physician Attending: Physician, Non Associated MD Vital Signs No data available for [...] [place] medically no surgery 2lower back 3scalp [id number] 6right 7with heavy activity Allergies, Adverse Reactions, [...] of vaginal wall prolapse 1left and right [id number] 3bilateral 4insertion of defibrillator with pacemaker Social History Social History Type Response Smoking Status Never smoker; Exposure to Tobacco Smoke None; Cigarette Smoking Last 365 Days No; Reg Smoking Cessation Counseling No Assessment and Plan No data available for this section
--- OUTSIDE RECORDS SUMMARY | 2017-12-18 07:44 | XMS REPORT | Summary of Care ---
Author Author [facility] Organization [facility] Address Unknown Phone Unavailable Encounter HQ Encntr_alias(FIN) [id number] Date(s): 03/31/15 - 03/31/15 [facility] [address] [place] [address]- [phone] Discharge Disposition: Home Attending Physician: Kerry Zarate MD Referring Physician: Kerry Zarate MD Vital Signs No data available for this section Problem List No data available for this section Allergies, Adverse Reactions, Alerts No data available for this section Medications No data available for this section Results No data available for this section Immunizations No data available for this section Procedures No data available for this section Social History No data available for this section Assessment and Plan No data available for this section
--- OUTSIDE RECORDS SUMMARY | 2017-12-18 07:44 | XMS REPORT | CCD ---
Author Author Auto Generated Organization [facility] Address Unknown Phone Unavailable Care Team Providers Care Corrugator Helper Name Role Phone Preston Perez RP Allergies, [...] [place] medically no surgery 2lower back 3scalp [phone] 6with heavy activity Medications Medication Instructions Start [...] 0 02/05/2013 Ordered delayed release Refill(s) capsule [place] 10/325 oral 1-2 tab, PO, Q4-6H, Pain, [...] values reflect the clinical guidelines of the [place] [employer]. HEMATOLOGY Most recent to oldest [...] surgery Coronary bypass graft angiography1 Hernia repair [id number]
--- OUTSIDE RECORDS SUMMARY | 2017-12-18 07:44 | XMS REPORT | Summary of Care ---
Author Organization Unknown Address Unknown Phone Unavailable Encounter [facility](FRED) [id number] Date(s): 09/15/13 - 09/16/[address] Discharge Disposition: Home Physician Attending: Love Maurer MD Physician Admitting: Love Maurer MD Physician_Referring: Love Maurer MD Reason for Visit CHRONIC SYSTOLIC HEART FAILURE, ATRIAL FIB, VENTRICULAR Vital Signs 1 2 3 Most recent to oldest [Reference Range]: 160.02 cm (09/15/13 2:02 PM) 160.02 cm (09/15/13 8:20 AM) Height 99 kg (09/16/13 5:22 AM) Current Weight 98.7 DegF (09/16/13 11:57 AM) 98.2 DegF (09/16/13 8:30 AM) 97.9 DegF (09/16/13 8:03 AM) Temperature Oral [96.4-99.1 DegF] 130 mmHg (09/16/13 1:00 PM) 131 mmHg (09/16/13 12:04 PM) 119 mmHg (09/16/13 11:08 AM) Systolic Blood Pressure [90-140 mmHg] 66 mmHg (09/16/13 1:00 PM) 60 mmHg (09/16/13 12:04 PM) 58 mmHg *LOW* (09/16/13 11:08 AM) Diastolic Blood Pressure [60-90 mmHg] 26 BRMIN *HI* (09/16/13 1:00 PM) 17 BRMIN (09/16/13 12:04 PM) 20 BRMIN (09/16/13 11:08 AM) Respiratory Rate [14-20 BRMIN] 95.909 kg (09/15/13 2:02 PM) 95.909 kg (09/15/13 8:20 AM) Weight 37.46 m2 (09/15/13 2:02 PM) 37.46 m2 (09/15/13 8:20 AM) Body Mass Index Problem List Condition Effective Dates Status Health Status Informant Aneurysm(Confirmed)1 Resolved Arthritis(Confirmed) Active Atrial Active fibrillation(Confirm ed) Back Active problem(Confirmed)2 CAD - Coronary Active artery disease(Confirmed) Cancer(Confirmed)3 Resolved Defibrillator(Confir Active med)4 Diabetes Active mellitus(Confirmed) Heart Resolved attack(Confirmed)5 Rhabdomyolysis(Confi Active rmed) Sarcoidosis(Confirme Active d) SOB - Shortness of Active breath(Confirmed)6 1brain bleed - [place] medically no surgery 2lower back 3scalp [id number] 6with heavy activity Allergies, Adverse Reactions, Alerts Substance Reaction Severity Status Phenergan Active Medications albuterol 0.083% inhalation solution 2.49 mg, 3 mL, Route: NEB, Drug form: SOLN, PRN, Dosing Weight 95.909, kg, PRN R espiratory Protocol, Start date: 09/15/13 10:55:00, Duration: 30 day, Stop date: 10/15/13 10:54:00 Notes: SEE RT DOCUMENTATION (Same as: Proventil) Start Date: 09/15/13 Stop Date: 09/16/13 Status: Discontinued Cymbalta 60 mg, 1 cap, Route: PO, Drug form: DRC, Daily, Dosing Weight 95.909, kg, Start date: 09/16/13 9:00:00, Duration: 30 day, Stop date: 10/15/13 9:00:00 Notes: (Same as: Cymbalta) (Do Not Crush) Start Date: 09/16/13 Stop Date: 09/16/13 Status: Discontinued Cymbalta 30 mg, 1 cap, Route: PO, Drug form: DRC, Bedtime, Dosing Weight 95.909, kg, Star t date: 09/15/13 21:00:00, Duration: 30 day, Stop date: 10/14/13 21:00:00 Notes: (Same as: Cymbalta) (Do Not Crush) Start Date: 09/15/13 Stop Date: 09/16/13 Status: Discontinued fentaNYL 25 microgram, 0.5 mL, Route: IVP, Drug form: INJ, Q5Min, Dosing Weight 95.909, k g, PRN Pain Score 4-6, Start date: 09/15/13 10:55:00, Duration: 4 doses or times , Stop date: 09/16/13 0:00:00 Notes: (Same as: Sublimaze) Preservative free. Start Date: 09/15/13 Stop Date: 09/16/13 Status: Completed fentaNYL 100 mcg/hr transdermal film, extended release 0 Refill(s) Start Date: 09/15/13 Status: Ordered flumazenil 0.2 mg, 2 mL, Route: IVP, Drug form: INJ, PRN, Dosing Weight 95.909, kg, PRN Jacob zodiazepine Reversal, Initial dose, Start date: 09/15/13 10:55:00, Duration: 30 day, Stop date: 10/15/13 10:54:00 Notes: (Same as: Romazicon) Start Date: 09/15/13 Stop Date: 09/16/13 Status: Discontinued gabapentin 600 mg oral tablet 600 mg, 2 cap, Route: PO, Drug form: CAP, BID, Dosing Weight 95.909, kg, Start d ate: 09/15/13 17:00:00, Stop date: 10/15/13 9:00:00 Notes: (Same as: Neurontin) Start Date: 09/15/13 Stop Date: 09/16/13 Status: Discontinued hydrALAZINE 10 mg, 0.5 mL, Route: IVP, Drug form: INJ, Q20Min, Dosing Weight 95.909, kg, PRN Elevated BP, Start date: 09/15/13 10:55:00, Duration: 2 doses or times, Stop da te: 09/16/13 0:00:00 Notes: (Same as: Apresoline)Push over 5 minutes Start Date: 09/15/13 Stop Date: 09/16/13 Status: Completed hydromorphone 0.5 mg, 0.25 mL, Route: IVP, Drug form: INJ, Q5Min, Dosing Weight 95.909, kg, MI N Pain Score 7-10, Start date: 09/15/13 10:55:00, Duration: 4 doses or times, St op date: 09/16/13 0:00:00 Notes: Same as: Dilaudid Start Date: 09/15/13 Stop Date: 09/16/13 Status: Completed isosorbide mononitrate 30 mg, 1 tab, Route: PO, Drug form: ERTAB, QAM, Dosing Weight 95.909, kg, Start date: 09/16/13 9:00:00, Duration: 30 day, Stop date: 10/15/13 9:00:00 Notes: (Same as:Imdur)"Do Not Crush" Take on empty stomach/ full glass of water . Do not crush Start Date: 09/16/13 Stop Date: 09/16/13 Status: Discontinued isosorbide mononitrate 30 mg oral tablet, extended release 0 Refill(s) Start Date: 09/15/13 Status: Ordered labetalol 10 mg, 2 mL, Route: IVP, Drug form: INJ, Q5Min, Dosing Weight 95.909, kg, PRN El evated BP, Start date: 09/15/13 10:55:00, Duration: 5 doses or times, Stop date: 09/16/13 0:00:00 Start Date: 09/15/13 Stop Date: 09/16/13 Status: Completed lisinopril 5 mg, 1 tab, Route: PO, Drug form: TAB, Daily, Dosing Weight 95.909, kg, Start d ate: 09/16/13 9:00:00, Duration: 30 day, Stop date: 10/15/13 9:00:00 Notes: (Same as: Prinivil, Zestril) Start Date: 09/16/13 Stop Date: 09/16/13 Status: Discontinued lisinopril 5 mg oral tablet 0 Refill(s) Start Date: 09/15/13 Status: Ordered Mag-Ox 400 800 mg, 2 tab, Route: PO, Drug form: TAB, ONCE, Dosing Weight 95.909, kg, Start date: 09/16/13 10:17:00, Stop date: 09/16/13 10:17:00 Notes: (Same as: Mag-Ox 400)Magnesium oxide [id number] elemental magnesiumDose= ____mg magnesium oxide (___mg elemental magnesium) Start Date: 09/16/13 Stop Date: 09/16/13 Status: Completed magnesium sulfate 2 gm, 50 mL, Route: IVPB, Drug form: INJ, Q2H, Dosing Weight 95.909, kg, Total d ose=4 gm, Priority: STAT, Start date: 09/15/13 13:30:00, Duration: 2 doses or ti mes, Stop date: 09/15/13 14:00:00 Start Date: 09/15/13 Stop Date: 09/15/13 Status: Completed meperidine 12.5 mg, 0.25 mL, Route: IVP, Drug form: INJ, Q30Min, Dosing Weight 95.909, kg, PRN Other -See Comment, For shivering, Start date: 09/15/13 10:55:00, Duration: 2 doses or times, Stop date: 09/16/13 0:00:00 Notes: (Same as: Mariyaerol) "Use Precaution in Elderly, Seizure disorders, and Re nal impairment" Start Date: 09/15/13 Stop Date: 09/16/13 Status: Completed metolazone 10 mg oral tablet 0 Refill(s) Start Date: 09/15/13 Stop Date: 09/16/13 Status: Discontinued midazolam 1 mg, 1 mL, Route: IVP, Drug form: INJ, Q5Min, Dosing Weight 95.909, kg, PRN Anx iety, Start date: 09/15/13 10:55:00, Duration: 2 doses or times, Stop date: 08/19 03/02 0:00:00 Notes: (Same as: Versed) Start Date: 09/15/13 Stop Date: 09/16/13 Status: Completed minocycline 100 mg oral capsule 100 mg=1 cap, PO, Q12H, # 14 cap, 0 Refill(s) Start Date: 09/16/13 Stop Date: 09/23/13 Status: Ordered MiraLax 0 Refill(s) Start Date: 09/15/13 Status: Ordered morphine Sulfate 2 mg, 0.5 mL, Route: IVP, Drug form: INJ, Q4H, Dosing Weight 95.909, kg, PRN Azra st Pain, Start date: 09/15/13 10:20:00, Duration: 30 day, Stop date: 10/15/13 10 :19:00 Notes: (Same as:MORPhine Sulfate) Start Date: 09/15/13 Stop Date: 09/16/13 Status: Discontinued morphine Sulfate 2 mg, 0.5 mL, Route: IVP, Drug form: INJ, Q5Min, Dosing Weight 95.909, kg, PRN P ain Score 4-6, Start date: 09/15/13 10:55:00, Duration: 5 doses or times, Stop d ate: 09/16/13 0:00:00 Notes: (Same as:MORPhine Sulfate) Start Date: 09/15/13 Stop Date: 09/16/13 Status: Completed naloxone 0.04 mg, 0.1 mL, Route: IVP, Drug form: INJ, Q2MIN, Dosing Weight 95.909, kg, MI N Narcotic Reversal, Start date: 09/15/13 10:55:00, Duration: 8 doses or times, Stop date: 09/16/13 0:00:00 Notes: (Same as: Narcan) Start Date: 09/15/13 Stop Date: 09/16/13 Status: Completed Neurontin 600 mg oral tablet 0 Refill(s) Start Date: 09/15/13 Stop Date: 09/16/13 Status: Discontinued Warren 10/325 oral tablet 1 tab, Route: PO, Drug Form: TAB, Dosing Weight 95.909, kg, Q4H, PRN Pain, Start date: 09/15/13 10:20:00, Duration: 30 day, Stop date: 10/15/13 10:19:00 Notes: Do not exceed 4gm/day of acetaminophen. (Same as: Warren 325/10) Start Date: 09/15/13 Stop Date: 09/16/13 Status: Discontinued Warren 10/325 oral tablet 1-2 tab, PO, Q4-6H, Pain, # 24 tab, 0 Refill(s) Start Date: 09/16/13 Status: Ordered NovoLOG FlexPen 3 unit, 0.03 mL, Route: SUB-Q, Drug form: SOLN, BID, Dosing Weight 95.909, kg, S tart date: 09/15/13 17:00:00, Duration: 30 day, Stop date: 10/15/13 9:00:00 Notes: Roll in palms of hands gently; Do not shake vigorously. (Same as: NovoLO G)"single patient use only" Stable for 28 days at room temperature.Expires in _ ____ days from Date Start Date: 09/15/13 Stop Date: 09/16/13 Status: Discontinued ondansetron 4 mg, 2 mL, Route: IVP, Drug form: INJ, ONCE, Dosing Weight 95.909, kg, PRN Naus ea & Vomiting, Start date: 09/15/13 10:55:00 Notes: (Same as: Zofran) Start Date: 09/15/13 Stop Date: 09/16/13 Status: Discontinued oxybutynin 5 mg, 1 tab, Route: PO, Drug form: TAB, BID, Dosing Weight 95.909, kg, Start frankie e: 09/15/13 17:00:00, Duration: 30 day, Stop date: 10/15/13 9:00:00 Notes: Same as: Ditropan) Start Date: 09/15/13 Stop Date: 09/16/13 Status: Discontinued oxybutynin 5 mg oral tablet 0 Refill(s) Start Date: 09/15/13 Status: Ordered potassium chloride 0 Refill(s) Start Date: 09/15/13 Status: Ordered potassium chloride 20 mEq, 100 mL, Route: IVPB, Drug form: INJ, Q2H, Dosing Weight 95.909, kg, Tota l dose=40 mEq, Priority: STAT, Start date: 09/15/13 13:30:00, Duration: 2 doses or times, Stop date: 09/15/13 14:00:00 Notes: (Same as: KCL) Infuse no faster than 10 mEq/hr if given peripherally. Start Date: 09/15/13 Stop Date: 09/15/13 Status: Completed potassium chloride 16 mEq, 12 mL, Route: PO, Drug form: LIQ, Daily, Dosing Weight 95.909, kg, Start date: 09/16/13 9:00:00, Duration: 30 day, Stop date: 10/15/13 9:00:00 Notes: (Same as: Potassium Chloride) Start Date: 09/16/13 Stop Date: 09/16/13 Status: Discontinued potassium chloride 20 mEq/15 mL oral liquid 40 mEq, 30 mL, Route: PO, Drug form: LIQ, ONCE, Dosing Weight 95.909, kg, Start date: 09/15/13 14:13:00, Stop date: 09/15/13 14:13:00 Notes: (Same as: Potassium Chloride) Start Date: 09/15/13 Stop Date: 09/15/13 Status: Completed Pradaxa 150 mg oral capsule 0 Refill(s) Start Date: 09/15/13 Stop Date: 09/16/13 Status: Discontinued Requip 3 mg, 3 tab, Route: PO, Drug form: TAB, TID, Dosing Weight 95.909, kg, Start frankie e: 09/15/13 13:00:00, Duration: 30 day, Stop date: 10/15/13 9:00:00 Notes: (Same as: Requip) Start Date: 09/15/13 Stop Date: 09/16/13 Status: Discontinued Requip 3 mg oral tablet 0 Refill(s) Start Date: 09/15/13 Status: Ordered Toprol-XL 25 mg oral tablet, extended release 25 mg, 1 tab, Route: PO, Drug form: ERTAB, BID, Start date: 09/15/13 17:00:00, D uration: 30 day, Stop date: 10/15/13 9:00:00 Notes: (Same as: Toprol XL) Do Not Crush Start Date: 09/15/13 Stop Date: 09/16/13 Status: Discontinued vancomycin 1.5 gm, Route: IVPB, Drug form: INJ, ONCE, Dosing Weight 95.909, kg, Start date: 09/15/13 8:20:00, Stop date: 09/15/13 8:20:00 Start Date: 09/15/13 Stop Date: 09/15/13 Status: Completed vancomycin 1 gm, Route: IVPB, Drug form: INJ, [id number], Dosing Weight 95.909, kg, Start date : 09/15/13 20:00:00, Duration: 1 day, Stop date: 09/16/13 8:00:00 Notes: (Same As: Vancocin) Start Date: 09/15/13 Stop Date: 09/16/13 Status: Completed vancomycin 1 gm, Route: IVPB, Drug form: INJ, [id number], Dosing Weight 95.909, kg, Start date : 09/15/13 11:00:00, Duration: 1 day, Stop date: 09/15/13 23:00:00 Notes: (Same As: Vancocin) Start Date: 09/15/13 Stop Date: 09/15/13 Status: Discontinued Zaroxolyn 5 mg, 1 tab, Route: PO, Drug form: TAB, BID, Dosing Weight 95.909, kg, Start frankie e: 09/15/13 17:00:00, Duration: 30 day, Stop date: 10/15/13 9:00:00 Notes: (Same as: Zaroxolyn) Start Date: 09/15/13 Stop Date: 09/16/13 Status: Discontinued Results BLOOD BANK RESULTS 1 2 3 Most recent to oldest [Reference Range]: O POS *Unknown* (09/15/13 6:57 AM) ABO/Rh Negative (09/15/13 6:57 AM) Antibody Scrn ELECTROLYTES 1 2 3 Most recent to oldest [Reference Range]: 141 mEq/L (09/16/13 5:17 AM) 140 mEq/L (09/15/13 12:00 PM) 141 mEq/L (09/15/13 6:35 AM) Sodium Lvl [135-145 mEq/L] 4.3 mEq/L (09/16/13 5:17 AM) 4.0 mEq/L 1 (09/15/13 9:32 PM) 3.0 mEq/L 2 *CRIT* (09/15/13 12:00 PM) Potassium Lvl [3.5-5.1 mEq/L] 103 mEq/L (09/16/13 5:17 AM) 104 mEq/L (09/15/13 12:00 PM) 101 mEq/L (09/15/13 6:35 AM) Chloride Lvl [95-109 mEq/L] 26 mEq/L (09/16/13 5:17 AM) 30 mEq/L (09/15/13 12:00 PM) 35 mEq/L *HI* (09/15/13 6:35 AM) CO2 [24-32 mEq/L] 16.3 mEq/L (09/16/13 5:17 AM) 9.0 mEq/L *LOW* (09/15/13 12:00 PM) 8.6 mEq/L *LOW* (09/15/13 6:35 AM) AGAP [10.0-20.0 mEq/L] 1Result Comment: Specimen Slightly Hemolyzed. 2Result Comment: Critical Result(s) called to Leticia Hooks [id number] at 09/15/2013 13:[address] Read back OK. could not locate the pt/ pt out of PACU 09/15/2013 13:12 Rechecked. CHEM PANEL 1 2 3 Most recent to oldest [Reference Range]: 0.4 mg/dL *LOW* (09/16/13 5:17 AM) 0.5 mg/dL (09/15/13 12:00 PM) 0.6 mg/dL (09/15/13 6:35 AM) Creatinine Lvl [0.5-1.4 mg/dL] 107 mL/min/1.73m2 3 *NA* (09/16/13 5:17 AM) 99 mL/min/1.73m2 4 *NA* (09/15/13 12:00 PM) 93 mL/min/1.73m2 5 *NA* (09/15/13 6:35 AM) eGFR 11 mg/dL (09/16/13 5:17 AM) 16 mg/dL (09/15/13 12:00 PM) 18 mg/dL (09/15/13 6:35 AM) BUN [7-22 mg/dL] 30 *HI* (09/15/13 6:35 AM) B/C Ratio [6-25] 108 mg/dL 6 *HI* (09/16/13 5:17 AM) 138 mg/dL 7 *HI* (09/15/13 12:00 PM) 121 mg/dL 8 *HI* (09/15/13 6:35 AM) Glucose Lvl [70-99 mg/dL] 6.7 g/dL (09/15/13 6:35 AM) Total Protein [6.4-8.4 g/dL] 3.5 g/dL (09/15/13 6:35 AM) Albumin Lvl [3.5-5.0 g/dL] 3.2 g/dL (09/15/13 6:35 AM) Globulin [2.0-4.0 g/dL] 1.1 (09/15/13 6:35 AM) A/G Ratio [0.7-1.6] 8.5 mg/dL (09/16/13 5:17 AM) 8.4 mg/dL *LOW* (09/15/13 12:00 PM) 9.4 mg/dL (09/15/13 6:35 AM) Calcium Lvl [8.5-10.5 mg/dL] 4.4 mg/dL (09/15/13 12:00 PM) Phosphorus [2.5-4.5 mg/dL] 1.4 mg/dL *LOW* (09/16/13 5:17 AM) 1.8 mg/dL (09/15/13 6:34 PM) 0.8 mg/dL *CRIT* (09/15/13 12:00 PM) Magnesium Lvl [1.8-2.4 mg/dL] 23 unit/L (09/15/13 6:35 AM) ALT [0-65 unit/L] 25 unit/L (09/15/13 6:35 AM) AST [0-37 unit/L] 82 unit/L (09/15/13 6:35 AM) Alk Phos [39-136 unit/L] 0.5 mg/dL (09/15/13 6:35 AM) Bili Total [0.2-1.3 mg/dL] 3Result Comment: The eGFR is calculated using [...] be mul tiplied by the estimated BMI. 4Result Comment: The eGFR is calculated using [...] be mul tiplied by the estimated BMI. 5Result Comment: The eGFR is calculated using [...] be mul tiplied by the estimated BMI. 6Interpretive Data: Adult reference range values reflect the clinical guidelines of the [employer]. 7Interpretive Data: Adult reference range values reflect the clinical guidelines of the [employer]. 8Interpretive Data: Adult reference range values reflect the clinical guidelines of the [employer]. HEMATOLOGY 1 2 3 Most recent to oldest [Reference Range]: 12.2 K/CMM *HI* (09/16/13 5:17 AM) 12.0 K/CMM *HI* (09/15/13 12:00 PM) 8.7 K/CMM (09/15/13 6:35 AM) WBC [3.7-10.4 K/CMM] 4.71 M/CMM (09/16/13 5:17 AM) 4.36 M/CMM (09/15/13 12:00 PM) 4.54 M/CMM (09/15/13 6:35 AM) RBC [4.20-5.40 M/CMM] 13.2 g/dL (09/16/13:17 AM) 12.1 g/dL (09/15/13 12:00 PM) 12.6 g/dL (09/15/13 6:35 AM) Hgb [12.0-16.0 g/dL] 41.0 % (09/16/13:17 AM) 36.7 % (09/15/13 12:00 PM) 38.2 % (09/15/13 6:35 AM) Hct [36.0-48.0 %] 87.0 fL (09/16/13:17 AM) 84.2 fL (09/15/13 12:00 PM) 84.2 fL (09/15/13 6:35 AM) MCV [81.0-99.0 fL] 28.0 pg (09/16/13:17 AM) 27.8 pg (09/15/13 12:00 PM) 27.8 pg (09/15/13:35 AM) MCH [27.0-31.0 pg] 32.2 g/dL (09/16/13:17 AM) 33.0 g/dL (09/15/13 12:00 PM) 33.0 g/dL (09/15/13 6:35 AM) MCHC [32.0-36.0 g/dL] 14.7 % *HI* (09/16/13:17 AM) 14.2 % (09/15/13 12:00 PM) 14.3 % (09/15/13 6:35 AM) RDW [11.5-14.5 %] 191 K/CMM (09/16/13:17 AM) 176 K/CMM (09/15/13 12:00 PM) 193 K/CMM (09/15/13 6:35 AM) Platelet [133-450 K/CMM] 10.5 fL *HI* (09/16/13 5:17 AM) 9.7 fL (09/15/13 12:00 PM) 9.7 fL (09/15/13 6:35 AM) MPV [7.4-10.4 fL] 83.9 % *HI* (09/16/13 5:17 AM) 80.3 % *HI* (09/15/13 12:00 PM) 65.0 % (09/15/13 6:35 AM) Segs [45.0-75.0 %] 6.2 % *LOW* (09/16/13 5:17 AM) 9.8 % *LOW* (09/15/13 12:00 PM) 20.2 % (09/15/13 6:35 AM) Lymphocytes [20.0-40.0 %] 7.1 % (09/16/13 5:17 AM) 6.7 % (09/15/13 12:00 PM) 8.5 % (09/15/13 6:35 AM) Monocytes [2.0-12.0 %] 2.5 % (09/16/13 5:17 AM) 2.8 % (09/15/13 12:00 PM) 5.8 % *HI* (09/15/13 6:35 AM) Eosinophils [0.0-4.0 %] 0.3 % (09/16/13 5:17 AM) 0.4 % (09/15/13 12:00 PM) 0.5 % (09/15/13 6:35 AM) Basophils [0.0-1.0 %] 10.2 K/CMM *HI* (09/16/13 5:17 AM) 9.7 K/CMM *HI* (09/15/13 12:00 PM) 5.7 K/CMM (09/15/13 6:35 AM) Segs-Bands # [1.5-8.1 K/CMM] 0.8 K/CMM *LOW* (09/16/13 5:17 AM) 1.2 K/CMM (09/15/13 12:00 PM) 1.8 K/CMM (09/15/13 6:35 AM) Lymphocytes # [1.0-5.5 K/CMM] 0.9 K/CMM *HI* (09/16/13 5:17 AM) 0.8 K/CMM (09/15/13 12:00 PM) 0.7 K/CMM (09/15/13 6:35 AM) Monocytes # [0.0-0.8 K/CMM] 0.3 K/CMM (09/16/13 5:17 AM) 0.3 K/CMM (09/15/13 12:00 PM) 0.5 K/CMM (09/15/13 6:35 AM) Eosinophils # [0.0-0.5 K/CMM] Normal (09/15/13 12:00 PM) RBC Morph See Note 9 (09/15/13 12:00 PM) Plt Morph 14.7 seconds (09/15/13 6:35 AM) PT [12.0-14.7 seconds] 1.16 10 (09/15/13 6:35 AM) INR [0.85-1.17] 34.8 seconds 11 (09/15/13 6:35 AM) PTT [22.9-35.8 seconds] 9Result Comment: Due to occassional clumps, the actual count may be slightly higher. 10Interpretive Data: RECOMMENDED RANGES FOR PROTIME INR: 2.0-3.0 for most medical and surgical thromboembolic states. 2.5-3.5 for artificial heart valves and recurrent embolism. INR SHOULD BE USED ONLY FOR PATIENTS ON STABLE ANTICOAGULANT THERAPY. 11Interpretive Data: Heparin Therapeutic Range: 57 - 92 Seconds Medications Administered During Your Visit No data available for this section Immunizations No data available for this section Social History Social History Type Response Smoking Status Former smoker, Type: Cigarettes, Exposure to Tobacco Smoke None, Cigarette Smoking Last 365 Days No, Reg Smoking Cessation Counseling Yes Assessment and Plan Extracted from: Title: Cardiovascular Admission H&P Author: Love Maurer MD Date: 09/15/13 * Impression and Plan 68 year-old female with a history of chronic systolic heart failure, ICM, AFib, CAD, HTN, DM, chronic pain, VTach, and VFib presents for lead extraction, pocket modification, and temp pacemaker insertion. ICM/Arrhythmia: - chronic systolic heart failure, NYHA Class III - appears reasonably well compensated at this time - s/p lead extraction, ICD upgrade, and temp pacer wire - cont home meds - telemetry - CXR in AM HTN: - normotensive - cont home regimen and titrate PRN DM: - monitor accuchecks Chronic Pain: - cont home regimen Hypokalemia: - repleted - monitor BMP Brett Canelo, MD Cardiology PGY-4
--- OUTSIDE RECORDS SUMMARY | 2017-12-18 07:45 | XMS REPORT ---
[facility] Address Unknown Phone Unavailable Care Team Providers Care Thermodynamics Engineer Name Role Phone ADIS MATTHEWS Unavailable Unavailable Dominick CASTRO Unavailable Unavailable FALLON SERRANO Unavailable Unavailable Problems This patient has no known problems. Allergies, Adverse Reactions, Alerts This patient has no known allergies or adverse reactions. Medications This patient has no known medications. Results Test Description Test Time Test Comments Text Results Atomic Results Result Comments US ABDOMEN COMPLETE 2017-12-04 13:45:00 [place] [address] Patient Name: ZEYAD VILLANUEVA MR #: [id number] : 1945 Age/Sex: 72/F Req #: [id number] Adm Physician: Ordered by: ADIS MATTHEWS MD Report #: [id number] Location: Room/Bed: Procedure: [id number] US/US ABDOMEN COMPLETE Exam Date: 12/03/17 Exam Time: 0838 REPORT STATUS: Signed PROCEDURE: ABDOMINAL ULTRASOUND COMPARISON: Abdom inal ultrasound 05/25/17. INDICATIONS: CIRRHOSIS OF LIVER ABDO PAIN FINDINGS: Liver: Measures 14.2 cm. Normal hepatic parenchymal echogenicity. No focal mass. Main portal vein: Measures 0.7 cm, Hepatopetal flow. Gallbladder: No evidence of wall thickening, pericholecystic fluid, or stone. Common Bile Duct: No echogenic filling defect. Measures 0.4 cm. Sonographic Luis's sign: Negative. Right kidney: Measures 10.4 cm. No solid or cystic mass, echogenic calculi, or hydronephrosis. Normal parenchymal echogenicity. Left kidney: Measures 10 cm. No solid or cystic mass, echogenic calculi, or hydronephrosis. Normal parenchymal echogenicity. Spleen: Measures 12.5 cm. Splenic calcifications are noted. Pancreas: There is a hypoechoic lesion measuring 1.6 x 1.2 x 1.6 cm in the head of the pancreas without demonstrated vascular flow. Inferior vena cava: Normal. Aorta: Atherosclerotic calcifications. Ascites: None. CONCLUSION: Hypoechoic pancreatic head lesion measuring up to 1.6 cm without demonstrated flow. This is incompletely characterized by ultrasound, and an MRI is recommended for further evaluation. Dictated by: FAY HICKMAN M.D. on 12/04/2017 at 13:45 Electronically approved by: FAY HICKMAN M.D. on 12/04/2017 at 13:45 Dictated By: FAY HICKMAN MD 1345 Transcribed By: CAROL ANN on 12/04/17 1345 COPY TO: ADIS MATTHEWS MD ALPHA FETOPROTEIN (AFP), TUMOR MARKER 2017-10-29 12:53:00 ALPHA-FETOPROTEIN (BEAKER) (test ssoc=9221) 2.3 ng/mL <10.0 CBC W/PLT COUNT & AUTO [id number] 12:38:00* Test Item Value Reference Range Comments WHITE BLOOD CELL COUNT (BEAKER) (test yavm=824) 10.5 K/ L 3.5-10.5 RED BLOOD CELL COUNT (BEAKER) (test zzvi=495) 5.12 M/ L 3.93-5.22 HEMOGLOBIN (BEAKER) (test sjtf=642) 13.0 GM/DL 11.2-15.7 HEMATOCRIT (BEAKER) (test jtpm=527) 42.7 % 34.1-44.9 MEAN CORPUSCULAR VOLUME (BEAKER) (test cwfa=196) 83.4 fL 79.4-94.8 MEAN CORPUSCULAR HEMOGLOBIN (BEAKER) (test inbe=626) 25.4 pg 25.6-32.2 MEAN CORPUSCULAR HEMOGLOBIN CONC (BEAKER) (test naml=204) 30.4 GM/DL 32.2-35.5 RED CELL DISTRIBUTION WIDTH (BEAKER) (test nebi=540) 15.1 % 11.7-14.4 PLATELET COUNT (BEAKER) (test iwbv=852) 272 K/CU MM 150-450 MEAN PLATELET VOLUME (BEAKER) (test aztt=971) 11.5 fL 9.4-12.3 NUCLEATED RED BLOOD CELLS (BEAKER) (test czyk=538) 0 /100 WBC 0-0 NEUTROPHILS RELATIVE PERCENT (BEAKER) (test qghi=926) 72 % LYMPHOCYTES RELATIVE PERCENT (BEAKER) (test fhuc=762) 18 % MONOCYTES RELATIVE PERCENT (BEAKER) (test gqrs=109) 6 % EOSINOPHILS RELATIVE PERCENT (BEAKER) (test msom=679) 3 % BASOPHILS RELATIVE PERCENT (BEAKER) (test suxi=085) 1 % NEUTROPHILS ABSOLUTE COUNT (BEAKER) (test yhdh=727) 7.56 K/ L 1.56-6.13 LYMPHOCYTES ABSOLUTE COUNT (BEAKER) (test rhun=046) 1.88 K/ L 1.18-3.74 MONOCYTES ABSOLUTE COUNT (BEAKER) (test pdsx=038) 0.65 K/ L 0.24-0.36 EOSINOPHILS ABSOLUTE COUNT (BEAKER) (test dvxk=208) 0.33 K/ L 0.04-0.36 BASOPHILS ABSOLUTE COUNT (BEAKER) (test uanc=078) 0.06 K/ L 0.01-0.08 IMMATURE GRANULOCYTES-RELATIVE PERCENT (BEAKER) (test xksq=5805) 1 % 0-1 HEPATIC FUNCTION [id number] 12:34:00* Test Item Value Reference Range Comments TOTAL PROTEIN (BEAKER) (test dipi=965) 7.3 gm/dL 6.0-8.3 ALBUMIN (BEAKER) (test xiqr=1470) 4.0 g/dL 3.5-5.0 BILIRUBIN TOTAL (BEAKER) (test rdmx=000) 0.5 mg/dL 0.2-1.2 BILIRUBIN DIRECT (BEAKER) (test xmat=388) 0.2 mg/dL 0.1-0.5 ALKALINE PHOSPHATASE (BEAKER) (test pmxx=410) 102 U/L 40-150 AST (SGOT) (BEAKER) (test feyb=691) 21 U/L 5-34 ALT (SGPT) (BEAKER) (test plfg=590) 13 U/L 6-55 BASIC METABOLIC [id number] 12:34:00* Test Item Value Reference Range Comments SODIUM (BEAKER) (test ytda=044) 139 meq/L 136-145 POTASSIUM (BEAKER) (test ewfj=408) 3.3 meq/L 3.5-5.1 CHLORIDE (BEAKER) (test obql=753) 99 meq/L 98-107 CO2 (BEAKER) (test cnei=476) 31 meq/L 22-29 BLOOD UREA NITROGEN (BEAKER) (test irwq=956) 14 mg/dL 7-21 CREATININE (BEAKER) (test bzvn=960) 0.80 mg/dL 0.57-1.25 GLUCOSE RANDOM (BEAKER) (test raii=458) 94 mg/dL 70-105 CALCIUM (BEAKER) (test fnim=751) 9.5 mg/dL 8.4-10.2 EGFR (BEAKER) (test ltmc=1972) 70 mL/min/1.73 sq m ESTIMATED GFR IS NOT ACCURATE CREATININE CLEARANCE IN PREDICTING GLOMERULAR FILTRATION RATE. ESTIMATED GFR IS NOT APPLICABLE FOR DIALYSIS PATIENTS. PROTHROMBIN TIME/[id number] 12:33:00* Test Item Value Reference Range Comments PROTIME (BEAKER) (test kipj=678) 16.4 seconds 11.7-14.7 INR (BEAKER) (test qtxd=103) 1.3 <=5.9 RECOMMENDED COUMADIN/WARFARIN INR THERAPY RANGESSTANDARD DOSE: 2.0 - 3.0 Inclu rodney: PROPHYLAXIS for venous thrombosis, systemic embolization; TREATMENT for georgette ous thrombosis and/or pulmonary embolus.HIGH RISK: Target INR is 2.5-3.5 for pat ients with mechanical heart valves.TESFAYE TITER AND [id number] 14:55:00* Test Item Value Reference Range Comments TESFAYE TITER (BEAKER) (test klbk=2153) :160 TESFAYE PATTERN (BEAKER) (test psln=1822) Homogeneous ANTI-NUCLEAR ANTIBODY (TESFAYE)2016-09-27 14:54:00* Test Item Value Reference Range Comments ANTI-NUCLEAR ANTIBODY (TESFAYE) (BEAKER) (test edqa=130) Positive Negative HEPATITIS B SURFACE [id number] 16:32:00* Test Item Value Reference Range Comments HEPATITIS B SURFACE ANTIGEN (2) (BEAKER) (test lpqx=0065) Nonreactive Nonreactive HEPATITIS B SURFACE [id number] 13:38:00* Test Item Value Reference Range Comments HEPATITIS B SURFACE ANTIBODY (BEAKER) (test tlsw=993) < mIU/mL <8.0 HEPATITIS B CORE ANTIBODY, [id number] 13:12:00* Test Item Value Reference Range Comments HEPATITIS B CORE TOTAL ANTIBODY (BEAKER) (test xbsw=609) Nonreactive Nonreactive HEPATITIS A ANTIBODY, [id number] 13:12:00* Test Item Value Reference Range Comments HEPATITIS A IGG ANTIBODY (BEAKER) (test oyog=9330) Nonreactive Nonreactive [id number] 14:37:00* Test Item Value Reference Range Comments FERRITIN (BEAKER) (test enef=433) 48 ng/mL 5-275 Effective 01/04/2014: Reference Range ChangeNew: Male 5-275 Previous: Male 22-322 Female 5-275 Female 10-291 ALPHA FETOPROTEIN (AFP), TUMOR [id number] 14:37:00* Test Item Value Reference Range Comments ALPHA-FETOPROTEIN (BEAKER) (test dtaw=5332) 3.0 ng/mL <10.0 Effective 01/04/2014: Reference Range ChangeNew: <10.0 Previous: 0.0-8.0IRON, TIBC, % SAT. (WITHOUT FERRITIN)2016-09-23 13:39:00* Test Item Value Reference Range Comments IRON (BEAKER) (test czxy=483) 56 ug/dL 40-160 TOTAL IRON BINDING CAPACITY (BEAKER) (test oogq=969) 441 ug/dL 250-450 IRON % SATURATION (2) (BEAKER) (test pphc=0927) 13 % 20-55 COMPREHENSIVE METABOLIC [id number] 13:36:00* Test Item Value Reference Range Comments TOTAL PROTEIN (BEAKER) (test tiyh=534) 7.6 gm/dL 6.0-8.3 ALBUMIN (BEAKER) (test sckv=1402) 4.2 g/dL 3.5-5.0 ALKALINE PHOSPHATASE (BEAKER) (test govs=724) 106 U/L 40-150 BILIRUBIN TOTAL (BEAKER) (test ivei=123) 0.5 mg/dL 0.2-1.2 SODIUM (BEAKER) (test cgzi=785) 141 meq/L 136-145 POTASSIUM (BEAKER) (test dmzs=690) 3.7 meq/L 3.5-5.1 CHLORIDE (BEAKER) (test tdsl=489) 100 meq/L 98-107 CO2 (BEAKER) (test bppp=499) 30 meq/L 22-29 BLOOD UREA NITROGEN (BEAKER) (test ijnm=712) 14 mg/dL 7-21 CREATININE (BEAKER) (test jenz=169) 0.68 mg/dL 0.57-1.25 GLUCOSE RANDOM (BEAKER) (test ymmm=484) 68 mg/dL 70-105 CALCIUM (BEAKER) (test mteu=679) 9.6 mg/dL 8.4-10.2 AST (SGOT) (BEAKER) (test lfef=910) 23 U/L 5-34 ALT (SGPT) (BEAKER) (test slbn=691) 16 U/L 6-55 EGFR (BEAKER) (test waft=2640) 85 mL/min/1.73 sq m ESTIMATED GFR IS NOT ACCURATE CREATININE CLEARANCE IN PREDICTING GLOMERULAR FILTRATION RATE. ESTIMATED GFR IS NOT APPLICABLE FOR DIALYSIS PATIENTS. BILIRUBIN, [id number] 13:36:00* Test Item Value Reference Range Comments BILIRUBIN DIRECT (BEAKER) (test ekwf=195) 0.2 mg/dL 0.1-0.5 CBC W/PLT COUNT & AUTO [id number] 12:40:00* Test Item Value Reference Range Comments WHITE BLOOD CELL COUNT (BEAKER) (test zvrd=634) 9.3 K/ L 3.5-10.5 RED BLOOD CELL COUNT (BEAKER) (test oeoh=882) 4.99 M/ L 3.93-5.22 HEMOGLOBIN (BEAKER) (test jhfn=484) 13.2 GM/DL 11.2-15.7 HEMATOCRIT (BEAKER) (test dybx=483) 42.5 % 34.1-44.9 MEAN CORPUSCULAR VOLUME (BEAKER) (test xsya=378) 85.2 fL 79.4-94.8 MEAN CORPUSCULAR HEMOGLOBIN (BEAKER) (test wvwl=956) 26.5 pg 25.6-32.2 MEAN CORPUSCULAR HEMOGLOBIN CONC (BEAKER) (test qpfu=370) 31.1 GM/DL 32.2-35.5 RED CELL DISTRIBUTION WIDTH (BEAKER) (test gmcw=413) 14.6 % 11.7-14.4 PLATELET COUNT (BEAKER) (test bwyi=265) 272 K/CU MM 150-450 MEAN PLATELET VOLUME (BEAKER) (test spsv=493) 11.5 fL 9.4-12.3 NUCLEATED RED BLOOD CELLS (BEAKER) (test mxno=799) 0 /100 WBC 0-0 NEUTROPHILS RELATIVE PERCENT (BEAKER) (test mliz=240) 66 % LYMPHOCYTES RELATIVE PERCENT (BEAKER) (test gakl=347) 22 % MONOCYTES RELATIVE PERCENT (BEAKER) (test sfxi=353) 8 % EOSINOPHILS RELATIVE PERCENT (BEAKER) (test scxj=444) 4 % BASOPHILS RELATIVE PERCENT (BEAKER) (test pozi=008) 1 % NEUTROPHILS ABSOLUTE COUNT (BEAKER) (test hagz=669) 6.10 K/ L 1.56-6.13 LYMPHOCYTES ABSOLUTE COUNT (BEAKER) (test kdsc=348) 2.01 K/ L 1.18-3.74 MONOCYTES ABSOLUTE COUNT (BEAKER) (test oywt=116) 0.72 K/ L 0.24-0.36 EOSINOPHILS ABSOLUTE COUNT (BEAKER) (test ydqv=013) 0.39 K/ L 0.04-0.36 BASOPHILS ABSOLUTE COUNT (BEAKER) (test vnch=311) 0.06 K/ L 0.01-0.08 IMMATURE GRANULOCYTES-RELATIVE PERCENT (BEAKER) (test gxan=4768) 0 % 0-1 PROTHROMBIN TIME/[id number] 12:39:00* Test Item Value Reference Range Comments PROTIME (BEAKER) (test ldfa=064) 19.0 seconds 11.7-14.7 INR (BEAKER) (test jttb=875) 1.6 <=5.9 RECOMMENDED COUMADIN/WARFARIN INR THERAPY RANGESSTANDARD DOSE: 2.0 - 3.0 Inclu rodney: PROPHYLAXIS for venous thrombosis, systemic embolization; TREATMENT for georgette ous thrombosis and/or pulmonary embolus.HIGH RISK: Target INR is 2.5-3.5 for pat ients with mechanical heart valves.US ABDOMEN COMPLETE [facility] [address] [place] [address] Patient Name: ZEYAD VILLANUEVA MR #: [id number] : 1945 Age/Sex: 72/F Req #: [id number] Adm Physician: Ordered by: FALLON SERRANO DO Report #: [id number] Location: US Room/Bed: Procedure: [id number] US/US ABDOMEN COMPLETE Exam D ate: 06/04/17 Exam Time: 0846 REPORT STATUS: Si gned PROCEDURE: ABDOMINAL ULTRASOUND COMPARISON: None. INDICATIONS: Cirrhosis, Screening for malignant neoplasm FINDINGS: Liver: 15.3 cm. Normal hepatic parenchymal echogenicity. No focal mass. Main portal vein: 1.2 cm. Hepatopedal flow. Gallbladder: No echogenic calculi, gallb ladder wall thickening, or pericholecystic fluid. Common Bile Duct: 3.0 mm. No echogenic filling defect. Sonographic Luis's sign: Negative. Right kidney: 11.6 cm. No solid or cystic mass, echogenic calculi, or hydronephro sis. Normal parenchymal echogenicity. Left kidney: 10.7 cm. No solid or cystic mass, echogenic calculi, or hydronephrosis. Normal parenchymal echogenicity. Spleen: 10.9 cm. No focal mass. Calcifications are present in the spl een. Pancreas: The visualized portions of the pancreas are normal. Infer ior vena cava: Normal. Aorta: Normal. Ascites: None. CONCLUSION: No acute sonographic abnormality. Dictated by: Mookie Hall M.D. on 06/04/2017 at 10:00 Electronically approved by: Mookie Hall M.D. on at 10:00 Dictated By: MOOKIE HALL MD Electronically Sig mariah By: MOOKIE HALL MD on 06/04/17 1000 Transcribed By: CAROL ANN on 06/04/17 1000 COPY TO: FALLON SERRANO DO
[2017-12-18 10:50] VITALS: BP 129/79
--- NOTE | 2017-12-18 12:27 | Operative Report ---
DATE OF PROCEDURE: December 18, 2017 REFERRING PHYSICIAN: Dr. Tc Serrano. PROCEDURE PERFORMED: Esophagogastroduodenoscopy with esophageal dilatation and biopsies. INDICATIONS FOR ESOPHAGOGASTRODUODENOSCOPY: Dysphagia, epigastric pain. MEDICATION: Patient was done under MAC. Please see anesthesiologist's note. PROCEDURE: With the patient in the left lateral decubitus position, the flexible fiberoptic Olympus gastroscope was introduced into the esophagus under direct visualization without any difficulty. There was some patchy erythema noted in the distal esophagus. The esophagus was then dilated to a size 52-[employer]. The scope was then advanced with ease into the stomach, traversing a small sliding hiatal hernia. Mucosa overlying the antrum and the body revealed some diffuse intense erythema and moderate edema, and biopsies were obtained and sent to stain for H. pylori. Pylorus appeared to be of normal contour and shape, was intubated with ease, and the scope was advanced all the way to the 2nd portion of the duodenum. The scope was then withdrawn slowly. Mucosa overlying the proximal 2nd portion and the duodenal bulb appeared to be within normal limits. The scope was then withdrawn back into the stomach and retroflexed, and the mucosa overlying the fundus and the cardia appeared to be within normal limits. The scope was then straightened out. The stomach was decompressed. The scope was subsequently withdrawn. Patient tolerated the procedure well. IMPRESSION: 1. Distal esophagitis, mild. 2. Esophagus dilated to a size 52-[employer] Lilly. 3. Small sliding hiatal hernia. 4. Gastritis biopsied. Biopsies sent to stain for H. pylori. PLAN: Follow up histology. Increase omeprazole to 40 mg 1 p.o. a.c. b.i.d. Job#: [id number] EV cc:TC SERRANO DO
== END | disposition home or self-care (01) ==
LOC: OR 07:40
PROVIDERS: ATTEND Internal Medicine Gastroenterology
DX: K20.9 Esophagitis, unspecified (principal); R13.10 Dysphagia, unspecified; R10.13 Epigastric pain; R10.33 Periumbilical pain; K44.9 Diaphragmatic hernia without obstruction or gangrene; K31.9 Disease of stomach and duodenum, unspecified; K29.50 Unspecified chronic gastritis without bleeding; Z01.812 Encounter for preprocedural laboratory examination; J44.9 Chronic obstructive pulmonary disease, unspecified; Z99.81 Dependence on supplemental oxygen; I48.91 Unspecified atrial fibrillation; E11.40 Type 2 diabetes mellitus with diabetic neuropathy, unspecified; Z79.4 Long term (current) use of insulin; I11.0 Hypertensive heart disease with heart failure; I50.9 Heart failure, unspecified; Z95.0 Presence of cardiac pacemaker; Z95.1 Presence of aortocoronary bypass graft; Z79.02 Long term (current) use of antithrombotics/antiplatelets; K74.69 Other cirrhosis of liver; G89.4 Chronic pain syndrome; D86.9 Sarcoidosis, unspecified; N30.00 Acute cystitis without hematuria; I25.2 Old myocardial infarction; Z88.1 Allergy status to other antibiotic agents; Z88.3 Allergy status to other anti-infective agents; Z91.048 Other nonmedicinal substance allergy status
CPT/HCPCS: 36415; 43239; 43450; 85025; 88305; 88312; 93005; J2001; J2250; J2405

== ENCOUNTER → 2017-12-22 | Outpatient (CLI) | payer MEDICARE ==
[~2017-12-22] MED LIST changes: -FENTANYL CITRATE/PF 100MCG/2 ML INJ ONE; +IOPAMIDOL 370 MG/ML 200 ML INFUS..BTL INJ ONE; -LIDOCAINE HCL 2% LOCAL INJ 5 ML SDV VIAL INJ ONE; -MIDAZOLAM HCL 2 MG/2 ML VIAL ONE; -ONDANSETRON HCL INJ 2 MG/ML VIAL ONE; -PROPOFOL IV EMULSION 10 MG/ML 50 ML VIAL ONE; +SODIUM CHLORIDE 0.9% 50ML 50 ML ONE
[2017-12-22 08:26] LABS: BLOOD UREA NITROGEN 14 mg/dL (7-26); BUN/CREATININE RATIO 19 (6-25); CREATININE, SERUM 0.75 mg/dL (0.57-1.11); EST GLOMERULAR FILTRATION RATE > 60 ML/MIN (60-)
--- NOTE | 2017-12-22 11:11 | Diagnostic Imaging Report ---
PROCEDURE: CT ABDOMEN WITH AND WITHOUT CONTRAST TECHNIQUE: The abdomen was scanned utilizing a multidetector helical scanner from the diaphragm to the iliac crest before and after the IV administration of 100 cc of Isovue 370 and the oral administration of 900 cc of water. Coronal and sagittal multiplanar reformations were obtained. COMPARISON: None. INDICATIONS: PANCREATIC LESIONS FINDINGS: LOWER THORAX: Left lower lobe calcified granuloma. Partially seen pacemaker leads. Patchy dependent atelectasis. HEPATOBILIARY: No focal hepatic lesions. No biliary ductal dilatation. Punctate right hepatic lobe calcification. SPLEEN: No splenomegaly. PANCREAS: No focal masses or ductal dilatation. No pancreatic abnormality is identified on arterial, portal venous, and delayed phase images. A non-enlarged peripancreatic lymph node is present which may correspond to the finding on prior abdominal ultrasound. ADRENALS: No adrenal nodules. KIDNEYS: No hydronephrosis, stones, or solid mass lesions. PERITONEUM / RETROPERITONEUM: No free air or fluid. LYMPH NODES: No lymphadenopathy. VESSELS: Moderate atherosclerotic calcifications of the abdominal aorta and branch vessels. GI TRACT: Visualized portions of the bowel demonstrate no distention or wall thickening. Moderate hiatal hernia. BONES AND SOFT TISSUES: No acute bony abnormality. Multiple posterior soft tissue injection granulomas. IMPRESSION: No evidence of pancreatic mass. Finding on prior ultrasound may represent a non-enlarged peripancreatic lymph node. Moderate hiatal hernia. Dictated by: FAY HICKMAN M.D. on 12/22/2017 at 11:20 Electronically approved by: FAY HICKMAN M.D. on 12/22/2017 at 11:20
== END ==
LOC: CT 07:30
PROVIDERS: ATTEND Family Medicine
DX: R13.10 Dysphagia, unspecified (principal)
CPT/HCPCS: 36415; 74170; 82565; 84520; Q9967

== ENCOUNTER 2018-06-22 06:07 | Emergency (ER) | payer MEDICARE ==
[~2018-06-22] VITALS: Ht 160 cm; Wt 95.7 kg
[~2018-06-22 06:07] MED LIST changes: -FENTANYL CITRATE/PF 100MCG/2 ML INJ ONE; -FUROSEMIDE20 MG PO; -GABAPENTIN400 MG PO; -GLUCAGON FOR INJ 1 MG VIAL ONE; -HUMALOG100 UNIT/1 SQ; -LOPRESSOR25 MG; -METOLAZONE10 MG PO; -MIDAZOLAM HCL 2 MG/2 ML VIAL ONE; -ONDANSETRON HCL INJ 2MG/ML 2ML 2 MG/ML VIAL ONE; -PROPOFOL IV EMULSION 10 MG/ML 20 ML VIAL ONE; -PROPOFOL IV EMULSION 10 MG/ML 50 ML VIAL ONE
--- OUTSIDE RECORDS SUMMARY | 2018-06-22 06:11 | XMS REPORT | Clinical Summary ---
Author Author [facility] Address Unknown Phone Unavailable Care Team Providers Care Civil Engineer In Training Name Role Phone Tc Rider PCP Allergies [...] (PRINIVIL,ZESTRIL) 5 MG mouth daily. tablet Active oxybutynin (DITROPAN) 5 Take 5 mg [...] 1 g by 0 gram tablet mouth 3 (three) times daily . Active metoprolol (TOPROL-XL) 25 Take 25 mg by 0 MG 24 hr tablet mouth daily. Active traZODone (DESYREL) 50 MG Take 50 mg by 0 tablet mouth nightly. Active metOLazone (ZAROXOLYN) 10 Take 10 mg by 0 MG tablet mouth 2 (two) times daily. Active INSULIN LISPRO Inject 0 PROTAMIN/LISPRO (HUMALOG [...] total) by mouth 2 (two) times daily. Active levocetirizine (XYZAL) 5 TK 1 T PO QD 4 MG tablet IN THE IFEOMA 8 Active gabapentin (NEURONTIN) Take 1,200 mg 0 400 MG capsule by mouth daily. Active fentaNYL (DURAGESIC) 50 Place 1 patch 0 mcg/hr patch onto the skin every third day. 10/29/2017 Discontinued levocetirizine (XYZAL) 5 Take 5 mg by 0 MG tablet mouth every evening. 01/13/2018 Discontinued gabapentin (NEURONTIN) Take 600 mg 0 600 MG tablet by mouth 2 (two) times daily. 10/29/2017 Discontinued morphine (MS CONTIN) 15 Take 1 tablet 0 MG 12 hr tablet (15 mg total) 7 by mouth every 8 (eight) hours as needed for Pain. Max Daily Amount: 45 mg 01/13/2018 Discontinued fentaNYL (DURAGESIC) 75 Place 1 patch 5 patch 0 mcg/hr patch onto the skin 7 every third day. Max Daily Amount: 1 patch 10/29/2017 Discontinued HYDROmorphone (DILAUDID) Take 4 mg by 0 4 MG tablet mouth every 8 (eight) hours as needed for Pain. Active Problems Problem Noted Date Hepatic encephalopathy 01/13/2018 Class 3 severe obesity in adult 01/13/2018 Cirrhosis 09/23/2016 Last Assessment & Plan: Cirrhosis [...] time, a liver biopsy would likely not gear changer. A comprehensive work up will be completed [...] Encounters Care Team Description Date Type Specialty Demetra Nunes NP Medication Management 2018 Telephone Hepatology Leonela Pearce RN 01/20/2018 Abstract Hepatology Radha Neville RN 01/19/2018 Documentation Hepatology Herminia Vergara RN 01/15/2018 Abstract Hepatology Gutierrez Melgoza MD Counts, Parxann Marie, PA Hepatic cirrhosis, unspecified hepatic cirrhosis type, unspecified whether ascites present (HCC) (Primary Dx); Type 2 diabetes mellitus with complication, unspecified whether application development intern insulin use (HCC); Osteoarthritis of multiple joints, unspecified osteoarthritis type; Immunity status testing; Metabolic syndrome; Screening for malignant neoplasm; Hepatic encephalopathy (HCC); Class 3 severe obesity due to excess calories with serious comorbidity and body mass index (BMI) of 40.0 to 44.9 in adult (HCC) 01/13/2018 Office Visit Hepatology Kalpana Villagran MA 01/12/2018 Abstract Hepatology Chanda Reno MA REC CD 01/02/2018 Telephone Hepatology Herminia Vergara RN Follow up 12/25/2017 Telephone Hepatology Herminia Vergara RN Follow up 12/25/2017 Telephone Hepatology Radha Neville RN abdominal swelling 12/24/2017 Telephone Hepatology Chanda Reno MA Rec CD 12/09/2017 Telephone Hepatology Radha Neville RN needs our address 12/05/2017 Telephone Hepatology Radha Neville RN protein diet 11/18/2017 Telephone Hepatology Rebecca Hwang 11/03/2017 Abstract Hepatology Radha Neville RN 10/31/2017 Documentation Hepatology Gutierrez Melgoza MD Hall, Demetra Ocampo NP Cirrhosis of liver without ascites, unspecified hepatic cirrhosis type (HCC) (Primary Dx); Type 2 diabetes mellitus with complication, unspecified whether application development intern insulin use (HCC); Immunity status testing; Metabolic syndrome; Screening for malignant neoplasm; Osteoarthritis of multiple joints, unspecified osteoarthritis type; Encephalopathy, portal systemic (HCC) 10/29/2017 Office Visit Hepatology Mack Al NP 08/29/2017 Documentation Hepatology Angie Khan 06/30/2017 Abstract Hepatology after 06/21/2017 Immunizations Name Dates Previously Given Next Due Hepatitis A 05/22/2017 Hepatitis B 05/22/2017 Pneumococcal Conjugate 06/23/2016 (Prevnar) 13-Valent Tdap 07/24/2016 Family History Medical History Relation Name Comments Heart disease Brother Diabetes Father Heart disease Father Cancer Maternal Grandmother Cancer Mother Relation Name Status Comments Brother Father Maternal Grandmother Mother Social History Date Tobacco Use Types Packs/Day Years Used Never Smoker Smokeless Tobacco: Never Used Alcohol Use Drinks/Week oz/Week Comments No Sex Assigned at Date Recorded Not on file Industry Job Start Date Occupation Not on file Not on file Not on file Travel End Travel History Travel Start No recent travel history available. Last Filed Vital Signs Time Taken Vital Sign Reading 01/13/2018 9:49 AM PROJECT MANAGEMENT ANALYST Blood Pressure 116/69 01/13/2018 9:49 AM PROJECT MANAGEMENT ANALYST Pulse 70 01/13/2018 9:49 AM PROJECT MANAGEMENT ANALYST Temperature 37 C (98.6 F) 01/13/2018 9:49 AM PROJECT MANAGEMENT ANALYST Respiratory Rate 16 01/13/2018 10:32 AM PROJECT MANAGEMENT ANALYST Oxygen Saturation 85% - Inhaled Oxygen - Concentration 01/13/2018 9:49 AM PROJECT MANAGEMENT ANALYST Weight 91.4 kg (201 lb 8 oz) 01/13/2018 9:49 AM PROJECT MANAGEMENT ANALYST Height 151.1 cm (4' 11.5") 01/13/2018 9:49 AM PROJECT MANAGEMENT ANALYST Body Mass Index 40.02 Plan of Treatment Care Team Description Date Type Specialty Gutierrez Melgoza MD [address] [facility] [address] [place], [place] [id number] Resource, [facility] Hep[facility]ology [facility] 07/15/2018 Office Visit Hepatology Health Maintenance Due Date Last Done Comments INFLUENZA VACCINE 11/17/2017 Procedures Comments Procedure Name Priority Date/Time Associated Diagnosis CBC W/PLT COUNT & AUTO Routine 01/13/2018 Hepatic cirrhosis, DIFFERENTIAL 11:11 AM PROJECT MANAGEMENT ANALYST unspecified hepatic cirrhosis type, unspecified whether ascites present (HCC) ALPHA FETOPROTEIN (AFP), Routine 01/13/2018 Hepatic cirrhosis, TUMOR MARKER 11:11 AM PROJECT MANAGEMENT ANALYST unspecified hepatic cirrhosis type, unspecified whether ascites present (HCC) PROTHROMBIN TIME/INR Routine 01/13/2018 Hepatic cirrhosis, 11:11 AM PROJECT MANAGEMENT ANALYST unspecified hepatic cirrhosis type, unspecified whether ascites present (HCC) CBC W/PLT COUNT & AUTO Routine 01/13/2018 Hepatic cirrhosis, DIFFERENTIAL 11:11 AM PROJECT MANAGEMENT ANALYST unspecified hepatic cirrhosis type, unspecified whether ascites present (HCC) HEPATIC FUNCTION PANEL Routine 01/13/2018 Hepatic cirrhosis, 11:11 AM PROJECT MANAGEMENT ANALYST unspecified hepatic cirrhosis type, unspecified whether ascites present (HCC) BASIC METABOLIC PANEL (7) Routine 01/13/2018 Hepatic cirrhosis, 11:11 AM PROJECT MANAGEMENT ANALYST unspecified hepatic cirrhosis type, unspecified whether ascites present (HCC) CBC W/PLT COUNT & AUTO Routine [...] ascites, unspecified hepatic cirrhosis type (HCC) after 06/21/2017 Results * CBC with platelet count + automated diff (01/13/2018 11:11 AM PROJECT MANAGEMENT ANALYST) Only the most recent of 2 results within the time period is included. WBC 13.1 (H) 3.5 - 10.5 K/L [facility] RBC 5.10 3.93 - 5.22 M/L [facility] Hemoglobin 13.3 11.2 - 15.7 GM/DL [facility] Hematocrit 43.3 34.1 - 44.9 % [facility] MCV 84.9 79.4 - 94.8 fL [facility] MCH 26.1 25.6 - 32.2 pg [facility] MCHC 30.7 (L) 32.2 - 35.5 GM/DL [facility] RDW 14.9 (H) 11.7 - 14.4 % [facility] Platelets 226 150 - 450 K/CU MM [facility] MPV 11.4 9.4 - 12.3 fL [facility] nRBC 0 0 - 0 /100 WBC [facility] % Neutros 74 % [facility] % Lymphs 17 % [facility] % Monos 6 % [facility] % Eos 3 % [facility] % Baso 1 % [facility] # Neutros 9.64 (H) 1.56 - 6.13 K/L [facility] # Lymphs 2.17 1.18 - 3.74 K/L [facility] # Monos 0.81 (H) 0.24 - 0.36 K/L [facility] # Eos 0.36 0.04 - 0.36 K/L [facility] # Baso 0.08 0.01 - 0.08 K/L [facility] Immature 1 0 - 1 % [facility] Granulocytes-[facility] Specimen Blood Performing Organization Address City/State/Zipcode Phone Number [place] [phone] [facility] * Alpha fetoprotein (AFP), tumor marker (01/13/2018 11:11 AM PROJECT MANAGEMENT ANALYST) Only the most recent of 2 results within the time period is included. Alpha-Fetoprotein 2.9 <10.0 ng/mL [facility] Specimen Blood Performing Organization Address City/State/Zipcode Phone Number [address] [address] [facility] * Pro-time/INR (01/13/2018 11:11 AM PROJECT MANAGEMENT ANALYST) Only the most recent of 2 results within the time period is included. Protime 15.6 (H) 11.7 - 14.7 seconds [facility] INR 1.2 <=5.9 [facility] Specimen Blood Narrative Performed At RECOMMENDED COUMADIN/WARFARIN INR THERAPY RANGES [facility] STANDARD DOSE: 2.0 - 3.0 Includes: PROPHYLAXIS for venous thrombosis, [facility] systemic embolization; TREATMENT for venous thrombosis and/or pulmonary embolus. HIGH RISK: Target INR is 2.5-3.5 for patients with mechanical heart valves. Performing Organization Address [facility] Phone Number [address] [address] [facility] * Hepatic function panel (01/13/2018 11:11 AM PROJECT MANAGEMENT ANALYST) Only the most recent of 2 results within the time period is included. Protein, Total 7.4 6.0 - 8.3 gm/dL [facility] Albumin 4.0 3.5 - 5.0 g/dL [facility] Total Bilirubin 0.4 0.2 - 1.2 mg/dL [facility] Bilirubin, Direct 0.2 0.1 - 0.5 mg/dL [facility] Alkaline Phosphatase 99 40 - 150 U/L [facility] AST 20 5 - 34 U/L [facility] ALT 12 6 - 55 U/L [facility] Specimen Blood Performing Organization Address City/[facility] Phone Number [address] [address] [facility] * Basic Metabolic Panel (01/13/2018 11:11 AM PROJECT MANAGEMENT ANALYST) Only the most recent of 2 results within the time period is included. Sodium 140 136 - 145 meq/L [facility] Potassium 3.4 (L) 3.5 - 5.1 meq/L [facility] Chloride 99 98 - 107 meq/L [facility] CO2 30 (H) 22 - 29 meq/L [facility] BUN 18 7 - 21 mg/dL [facility] Creatinine 0.79 0.57 - 1.25 mg/dL [facility] Glucose 85 70 - 105 mg/dL [facility] Calcium 9.4 8.4 - 10.2 mg/dL [facility] EGFR 71Comment: ESTIMATED GFR IS mL/min/1.73 sq m [facility] NOT ACCURATE CREATININE [facility] CLEARANCE IN PREDICTING GLOMERULAR FILTRATION RATE. ESTIMATED GFR IS NOT APPLICABLE FOR DIALYSIS PATIENTS. Specimen Blood Performing Organization Address City/State/Zipcode Phone Number [facility] [address] [place] [address] [facility] after 06/21/2017 Insurance Payer Benefit Subscriber ID Type Phone Address Plan / Group [employer] - MEDICARE MGD HUMANA xxxxxxxxx [facility] MEDICARE Contracted ADV
--- OUTSIDE RECORDS SUMMARY | 2018-06-22 06:11 | XMS REPORT ---
Author Author [facility] Address Unknown Phone Unavailable Care Team Providers Care Helicopter Technician Name Role Phone ADIS MATTHEWS Unavailable Unavailable Dominick CASTRO Unavailable Unavailable FALLON SERRANO Unavailable Unavailable Payers Payer Name Policy Type Policy Number Effective Date Expiration Date Problems This patient has no known problems. Allergies, Adverse Reactions, Alerts Allergy Name Allergy Type Status Severity Reaction(s) Onset Date Inactive Date Treating Clinician Comments baclofen DA Active U 2016-07-31 00:00:00 methocarbamol DA Active [place] 2014-09-19 00:00:00 clindamycin DA Active [place] 2014-09-19 00:00:00 minocycline DA Active [place] 2014-09-19 00:00:00 promethazine DA Active U 2014-07-14 00:00:00 Medications This patient has no known medications. Encounters Start Date/Time End Date/Time Encounter Type Admission Type Attending Clinicians Care Facility Care Department Encounter ID 2018-06-08 16:48:34 Outpatient [facility]14 Results Test Description Test Time Test Comments Text Results Atomic Results Result Comments CHEST 2 VIEWS 2018-06-19 14:19:00 [facility] [address] [place], [place] [address] Patient Name: ZEYAD VILLANUEVA MR #: [id number] : 1945 Age/Sex: 73/F Req #: [id number] Adm Physician: Ordered by: CÉSAR JONES MD Report #: [id number] Location: OR Room/Bed: Procedure: [id number] DX/CHEST 2 VIEWS Exam Date: 06/19/18 Exam Time: 1147 REPORT STATUS: Signed EXAMINATION: CHEST 2 VIEWS INDICATION: Pre-op. COMPARISON: None FINDINGS: TUBES and LINES: Left-sided AICD with leads overlying the right ventricle. LUNGS: Moderate inflation of lungs. Bilateral mild interstitial opacities which are basilar predominant. Calcified nodule in the left lower lung, consistent with granuloma. PLEURA: No pleural effusion or pneumothorax. HEART AND MEDIASTINUM: There is moderate cardiomegaly. Atherosclerotic calcification of the aortic arch. BONES AND SOFT TISSUES: No acute osseous abnormality. Status post median sternotomy. S shaped scoliosis of the thoracolumbar spine. UPPER ABDOMEN: No free air under the diaphragm. IMPRESSION: Bilateral mild interstitial opacities may reflect mild fibrotic changes versus interstitial edema. Moderate cardiomegaly. Signed by: Dr. Fay Hickman MD on 06/19/2018 2:23 PM Dictated By: FAY HICKMAN MD 1423 Transcribed By: ALVA on 06/19/18 1423 COPY TO: CÉSAR JONES MD ALPHA FETOPROTEIN (AFP), TUMOR MARKER 2018-01-13 14:23:00 ALPHA-FETOPROTEIN (BEAKER) (test lbld=7177) 2.9 ng/mL <10.0 HEPATIC FUNCTION [id number] 14:08:00* Test Item Value Reference Range Comments TOTAL PROTEIN (BEAKER) (test pdsz=381) 7.4 gm/dL 6.0-8.3 ALBUMIN (BEAKER) (test msjx=0386) 4.0 g/dL 3.5-5.0 BILIRUBIN TOTAL (BEAKER) (test jgpi=599) 0.4 mg/dL 0.2-1.2 BILIRUBIN DIRECT (BEAKER) (test wvab=000) 0.2 mg/dL 0.1-0.5 ALKALINE PHOSPHATASE (BEAKER) (test oovg=249) 99 U/L 40-150 AST (SGOT) (BEAKER) (test flar=268) 20 U/L 5-34 ALT (SGPT) (BEAKER) (test qbjc=015) 12 U/L 6-55 BASIC METABOLIC [id number] 14:08:00* Test Item Value Reference Range Comments SODIUM (BEAKER) (test ergr=488) 140 meq/L 136-145 POTASSIUM (BEAKER) (test fvki=726) 3.4 meq/L 3.5-5.1 CHLORIDE (BEAKER) (test mrsi=517) 99 meq/L 98-107 CO2 (BEAKER) (test jivh=649) 30 meq/L 22-29 BLOOD UREA NITROGEN (BEAKER) (test eyxs=911) 18 mg/dL 7-21 CREATININE (BEAKER) (test frio=951) 0.79 mg/dL 0.57-1.25 GLUCOSE RANDOM (BEAKER) (test quxk=276) 85 mg/dL 70-105 CALCIUM (BEAKER) (test kuen=639) 9.4 mg/dL 8.4-10.2 EGFR (BEAKER) (test muir=2076) 71 mL/min/1.73 sq m ESTIMATED GFR IS NOT ACCURATE CREATININE CLEARANCE IN PREDICTING GLOMERULAR FILTRATION RATE. ESTIMATED GFR IS NOT APPLICABLE FOR DIALYSIS PATIENTS. CBC W/PLT COUNT & AUTO [id number] 14:03:00* Test Item Value Reference Range Comments WHITE BLOOD CELL COUNT (BEAKER) (test sgas=184) 13.1 K/ L 3.5-10.5 RED BLOOD CELL COUNT (BEAKER) (test uoem=861) 5.10 M/ L 3.93-5.22 HEMOGLOBIN (BEAKER) (test otvv=191) 13.3 GM/DL 11.2-15.7 HEMATOCRIT (BEAKER) (test ndrz=169) 43.3 % 34.1-44.9 MEAN CORPUSCULAR VOLUME (BEAKER) (test qsky=340) 84.9 fL 79.4-94.8 MEAN CORPUSCULAR HEMOGLOBIN (BEAKER) (test ptdp=205) 26.1 pg 25.6-32.2 MEAN CORPUSCULAR HEMOGLOBIN CONC (BEAKER) (test mxis=932) 30.7 GM/DL 32.2-35.5 RED CELL DISTRIBUTION WIDTH (BEAKER) (test gvzj=905) 14.9 % 11.7-14.4 PLATELET COUNT (BEAKER) (test eknp=135) 226 K/CU MM 150-450 MEAN PLATELET VOLUME (BEAKER) (test usep=553) 11.4 fL 9.4-12.3 NUCLEATED RED BLOOD CELLS (BEAKER) (test hvjo=480) 0 /100 WBC 0-0 NEUTROPHILS RELATIVE PERCENT (BEAKER) (test cyop=648) 74 % LYMPHOCYTES RELATIVE PERCENT (BEAKER) (test mebw=528) 17 % MONOCYTES RELATIVE PERCENT (BEAKER) (test lwgs=709) 6 % EOSINOPHILS RELATIVE PERCENT (BEAKER) (test yohb=174) 3 % BASOPHILS RELATIVE PERCENT (BEAKER) (test tggc=457) 1 % NEUTROPHILS ABSOLUTE COUNT (BEAKER) (test ldqg=604) 9.64 K/ L 1.56-6.13 LYMPHOCYTES ABSOLUTE COUNT (BEAKER) (test lxdj=954) 2.17 K/ L 1.18-3.74 MONOCYTES ABSOLUTE COUNT (BEAKER) (test jsur=755) 0.81 K/ L 0.24-0.36 EOSINOPHILS ABSOLUTE COUNT (BEAKER) (test ezfv=731) 0.36 K/ L 0.04-0.36 BASOPHILS ABSOLUTE COUNT (BEAKER) (test swpg=154) 0.08 K/ L 0.01-0.08 IMMATURE GRANULOCYTES-RELATIVE PERCENT (BEAKER) (test yjld=8864) 1 % 0-1 PROTHROMBIN TIME/[id number] 13:48:00* Test Item Value Reference Range Comments PROTIME (BEAKER) (test ymzw=439) 15.6 seconds 11.7-14.7 INR (BEAKER) (test vvcg=977) 1.2 <=5.9 RECOMMENDED COUMADIN/WARFARIN INR THERAPY RANGESSTANDARD DOSE: 2.0 - 3.0 Inclu rodney: PROPHYLAXIS for venous thrombosis, systemic embolization; TREATMENT for georgette ous thrombosis and/or pulmonary embolus.HIGH RISK: Target INR is 2.5-3.5 for pat ients with mechanical heart valves.CT ABDOMEN [id number] 11:20:00 [facility] [address] [place] [address] Patient Name: ZEYAD VILLANUEVA MR #: [id number] : 1945 Age/Sex: 72/F Req #: [id number] Adm Physician: Ordered by: FALLON SERRANO DO Report #: [id number] Location: CT Room/Bed: Procedure: [id number] CT/ CT ABDOMEN WOW Exam Date: 12/22/17 Exam Time: 0835 REPORT STATUS: Signed PROCEDURE: CT ABDOMEN WITH AND WITHOUT CONTRAST TECHNIQUE: The abdomen was sca nned utilizing a multidetector helical scanner from the diaphragm to the angela c crest before and after the IV administration of 100 cc of Isovue 370 and th e oral administration of 900 cc of water. Coronal and sagittal multiplanar re formations were obtained. COMPARISON: None. INDICATIONS: PANCREAT IC LESIONS FINDINGS: LOWER THORAX: Left lower lobe calcified granuloma. Partially seen pacemaker leads. Patchy dependent atelectasis. HEPATOBI LIARY: No focal hepatic lesions. No biliary ductal dilatation. Punctate righ t hepatic lobe calcification. SPLEEN: No splenomegaly. PANCREAS: No focal m asses or ductal dilatation. No pancreatic abnormality is identified on arteri al, portal venous, and delayed phase images. A non-enlarged peripancreatic ly mph node is present which may correspond to the finding on prior abdominal ul trasound. ADRENALS: No adrenal nodules. KIDNEYS: No hydronephrosis, ston es, or solid mass lesions. PERITONEUM / RETROPERITONEUM: No free air or fl uid. LYMPH NODES: No lymphadenopathy. VESSELS: Moderate atherosclerotic calc ifications of the abdominal aorta and branch vessels. GI TRACT: Visuali zed portions of the bowel demonstrate no distention or wall thickening. Moder ate hiatal hernia. BONES AND SOFT TISSUES: No acute bony abnormality. Mult iple posterior soft tissue injection granulomas. IMPRESSION: No evidence of pancreatic mass. Finding on prior ultrasound may represent a non-enlarged peripancreatic lymph node. Moderate hiatal hernia. D ictated by: FAY HICKMAN M.D. on 12/22/2017 at 11:20 Electronically appro fernando by: FAY HICKMAN M.D. on 12/22/2017 at 11:20 Dictated By: NILSA HICKMAN MD 1120 Transcribe d By: CAROL ANN on 12/22/17 1120 COPY TO: FALLON SERRANO DO US ABDOMEN [id number] 13:45:[address] [place] [address] Patient Name: ZEYAD VILLANUEVA MR #: [id number] : 1945 Age/Sex: 72/F Req #: [id number] Adm Physician: Ordered by: ADIS MATTHEWS MD Report #: [id number] Location: US Room/Bed: Procedure: [id number] US /US ABDOMEN COMPLETE Exam Date: 12/03/17 Exam Time: 0838 REPORT STATUS: Signed PROCE DURE: ABDOMINAL ULTRASOUND COMPARISON: Abdominal ultrasound 05/25/17. THEO CATIONS: CIRRHOSIS OF LIVER ABDO PAIN FINDINGS: Liver: Measures 1 4.2 cm. Normal hepatic parenchymal echogenicity. No focal mass. Main brielle l vein: Measures 0.7 cm, Hepatopetal flow. Gallbladder: No evidence of wa ll thickening, pericholecystic fluid, or stone. Common Bile Duct: No echo genic filling defect. Measures 0.4 cm. Sonographic Luis's sign: Negative. Right kidney: Measures 10.4 cm. No solid or cystic mass, echogenic calcu li, or hydronephrosis. Normal parenchymal echogenicity. Left kidney: Measures 10 cm. No solid or cystic mass, echogenic calculi, or hydronephrosis. Normal parenchymal echogenicity. Spleen: Measures 12.5 cm. Splenic calcification s are noted. Pancreas: There is a hypoechoic lesion measuring 1.6 x 1.2 x 1.6 cm in the head of the pancreas without demonstrated vascular flow. Inf erior vena cava: Normal. Aorta: Atherosclerotic calcifications. Ascites: Non e. CONCLUSION: Hypoechoic pancreatic head lesion measuring up to 1.6 cm without demonstrated flow. This is incompletely characterized by ultrasoun d, and an MRI is recommended for further evaluation. D ictated by: FAY HICKMAN M.D. on 12/04/2017 at 13:45 Electronically appro fernando by: FAY HICKMAN M.D. on 12/04/2017 at 13:45 Dictated By: NILSA HICKMAN MD 1345 Transcribe d By: CAROL ANN on 12/04/17 1345 COPY TO: ADIS MATTHEWS MD ALPHA FETOPROTEIN (AFP), TUMOR [id number] 12:53:00* Test Item Value Reference Range Comments ALPHA-FETOPROTEIN (BEAKER) (test gyhe=8391) 2.3 ng/mL <10.0 CBC W/PLT COUNT & AUTO [id number] 12:38:00* Test Item Value Reference Range Comments WHITE BLOOD CELL COUNT (BEAKER) (test svzt=867) 10.5 K/ L 3.5-10.5 RED BLOOD CELL COUNT (BEAKER) (test pjsk=620) 5.12 M/ L 3.93-5.22 HEMOGLOBIN (BEAKER) (test tomp=563) 13.0 GM/DL 11.2-15.7 HEMATOCRIT (BEAKER) (test kxlm=503) 42.7 % 34.1-44.9 MEAN CORPUSCULAR VOLUME (BEAKER) (test dycp=989) 83.4 fL 79.4-94.8 MEAN CORPUSCULAR HEMOGLOBIN (BEAKER) (test spon=171) 25.4 pg 25.6-32.2 MEAN CORPUSCULAR HEMOGLOBIN CONC (BEAKER) (test pdid=348) 30.4 GM/DL 32.2-35.5 RED CELL DISTRIBUTION WIDTH (BEAKER) (test kkrl=953) 15.1 % 11.7-14.4 PLATELET COUNT (BEAKER) (test anke=636) 272 K/CU MM 150-450 MEAN PLATELET VOLUME (BEAKER) (test xfwz=384) 11.5 fL 9.4-12.3 NUCLEATED RED BLOOD CELLS (BEAKER) (test yujh=833) 0 /100 WBC 0-0 NEUTROPHILS RELATIVE PERCENT (BEAKER) (test egfd=770) 72 % LYMPHOCYTES RELATIVE PERCENT (BEAKER) (test iwxs=796) 18 % MONOCYTES RELATIVE PERCENT (BEAKER) (test xylj=860) 6 % EOSINOPHILS RELATIVE PERCENT (BEAKER) (test nsde=204) 3 % BASOPHILS RELATIVE PERCENT (BEAKER) (test xmic=182) 1 % NEUTROPHILS ABSOLUTE COUNT (BEAKER) (test rymv=649) 7.56 K/ L 1.56-6.13 LYMPHOCYTES ABSOLUTE COUNT (BEAKER) (test xbxt=201) 1.88 K/ L 1.18-3.74 MONOCYTES ABSOLUTE COUNT (BEAKER) (test xmbr=411) 0.65 K/ L 0.24-0.36 EOSINOPHILS ABSOLUTE COUNT (BEAKER) (test kire=417) 0.33 K/ L 0.04-0.36 BASOPHILS ABSOLUTE COUNT (BEAKER) (test ackj=694) 0.06 K/ L 0.01-0.08 IMMATURE GRANULOCYTES-RELATIVE PERCENT (BEAKER) (test atlj=7331) 1 % 0-1 HEPATIC FUNCTION [id number] 12:34:00* Test Item Value Reference Range Comments TOTAL PROTEIN (BEAKER) (test xdfl=926) 7.3 gm/dL 6.0-8.3 ALBUMIN (BEAKER) (test dvan=1136) 4.0 g/dL 3.5-5.0 BILIRUBIN TOTAL (BEAKER) (test jffd=579) 0.5 mg/dL 0.2-1.2 BILIRUBIN DIRECT (BEAKER) (test tddl=030) 0.2 mg/dL 0.1-0.5 ALKALINE PHOSPHATASE (BEAKER) (test bmgs=091) 102 U/L 40-150 AST (SGOT) (BEAKER) (test bgtx=571) 21 U/L 5-34 ALT (SGPT) (BEAKER) (test lvyl=131) 13 U/L 6-55 BASIC METABOLIC [id number] 12:34:00* Test Item Value Reference Range Comments SODIUM (BEAKER) (test tjbk=355) 139 meq/L 136-145 POTASSIUM (BEAKER) (test xiuq=162) 3.3 meq/L 3.5-5.1 CHLORIDE (BEAKER) (test zqei=356) 99 meq/L 98-107 CO2 (BEAKER) (test yenb=996) 31 meq/L 22-29 BLOOD UREA NITROGEN (BEAKER) (test lisy=542) 14 mg/dL 7-21 CREATININE (BEAKER) (test fqwh=861) 0.80 mg/dL 0.57-1.25 GLUCOSE RANDOM (BEAKER) (test izfg=507) 94 mg/dL 70-105 CALCIUM (BEAKER) (test zsua=844) 9.5 mg/dL 8.4-10.2 EGFR (BEAKER) (test jcqy=0642) 70 mL/min/1.73 sq m ESTIMATED GFR IS NOT ACCURATE CREATININE CLEARANCE IN PREDICTING GLOMERULAR FILTRATION RATE. ESTIMATED GFR IS NOT APPLICABLE FOR DIALYSIS PATIENTS. PROTHROMBIN TIME/[id number] 12:33:00* Test Item Value Reference Range Comments PROTIME (BEAKER) (test ysbz=661) 16.4 seconds 11.7-14.7 INR (BEAKER) (test kdcz=182) 1.3 <=5.9 RECOMMENDED COUMADIN/WARFARIN INR THERAPY RANGESSTANDARD DOSE: 2.0 - 3.0 Inclu rodney: PROPHYLAXIS for venous thrombosis, systemic embolization; TREATMENT for georgette ous thrombosis and/or pulmonary embolus.HIGH RISK: Target INR is 2.5-3.5 for pat ients with mechanical heart valves.TESFAYE TITER AND [id number] 14:55:00* Test Item Value Reference Range Comments TESFAYE TITER (BEAKER) (test qdda=9395) :160 TESFAYE PATTERN (BEAKER) (test xrpi=9997) Homogeneous ANTI-NUCLEAR ANTIBODY (TESFAYE)2016-09-27 14:54:00* Test Item Value Reference Range Comments ANTI-NUCLEAR ANTIBODY (TESFAYE) (BEAKER) (test pjoj=945) Positive Negative HEPATITIS B SURFACE [id number] 16:32:00* Test Item Value Reference Range Comments HEPATITIS B SURFACE ANTIGEN (2) (BEAKER) (test gesf=2965) Nonreactive Nonreactive HEPATITIS B SURFACE [id number] 13:38:00* Test Item Value Reference Range Comments HEPATITIS B SURFACE ANTIBODY (BEAKER) (test awnq=911) < mIU/mL <8.0 HEPATITIS B CORE ANTIBODY, [id number] 13:12:00* Test Item Value Reference Range Comments HEPATITIS B CORE TOTAL ANTIBODY (BEAKER) (test qvne=961) Nonreactive Nonreactive HEPATITIS A ANTIBODY, [id number] 13:12:00* Test Item Value Reference Range Comments HEPATITIS A IGG ANTIBODY (BEAKER) (test ttqd=1437) Nonreactive Nonreactive [id number] 14:37:00* Test Item Value Reference Range Comments FERRITIN (BEAKER) (test colz=629) 48 ng/mL 5-275 Effective 01/04/2014: Reference Range ChangeNew: Male 5-275 Previous: Male 22-322 Female 5-275 Female 10-291 ALPHA FETOPROTEIN (AFP), TUMOR [id number] 14:37:00* Test Item Value Reference Range Comments ALPHA-FETOPROTEIN (BEAKER) (test qrrt=6144) 3.0 ng/mL <10.0 Effective 01/04/2014: Reference Range ChangeNew: <10.0 Previous: 0.0-8.0IRON, TIBC, % SAT. (WITHOUT FERRITIN)2016-09-23 13:39:00* Test Item Value Reference Range Comments IRON (BEAKER) (test oiwk=159) 56 ug/dL 40-160 TOTAL IRON BINDING CAPACITY (BEAKER) (test txos=875) 441 ug/dL 250-450 IRON % SATURATION (2) (BEAKER) (test uqbo=4312) 13 % 20-55 COMPREHENSIVE METABOLIC [id number] 13:36:00* Test Item Value Reference Range Comments TOTAL PROTEIN (BEAKER) (test atlk=514) 7.6 gm/dL 6.0-8.3 ALBUMIN (BEAKER) (test wmqc=6603) 4.2 g/dL 3.5-5.0 ALKALINE PHOSPHATASE (BEAKER) (test trqb=592) 106 U/L 40-150 BILIRUBIN TOTAL (BEAKER) (test tyxl=714) 0.5 mg/dL 0.2-1.2 SODIUM (BEAKER) (test uhov=146) 141 meq/L 136-145 POTASSIUM (BEAKER) (test eqwu=097) 3.7 meq/L 3.5-5.1 CHLORIDE (BEAKER) (test bmld=121) 100 meq/L 98-107 CO2 (BEAKER) (test oqbr=423) 30 meq/L 22-29 BLOOD UREA NITROGEN (BEAKER) (test dlpv=819) 14 mg/dL 7-21 CREATININE (BEAKER) (test yerx=142) 0.68 mg/dL 0.57-1.25 GLUCOSE RANDOM (BEAKER) (test tqqk=630) 68 mg/dL 70-105 CALCIUM (BEAKER) (test mpei=593) 9.6 mg/dL 8.4-10.2 AST (SGOT) (BEAKER) (test srnj=551) 23 U/L 5-34 ALT (SGPT) (BEAKER) (test swew=266) 16 U/L 6-55 EGFR (BEAKER) (test vgvs=0603) 85 mL/min/1.73 sq m ESTIMATED GFR IS NOT ACCURATE CREATININE CLEARANCE IN PREDICTING GLOMERULAR FILTRATION RATE. ESTIMATED GFR IS NOT APPLICABLE FOR DIALYSIS PATIENTS. BILIRUBIN, [id number] 13:36:00* Test Item Value Reference Range Comments BILIRUBIN DIRECT (BEAKER) (test vwtg=848) 0.2 mg/dL 0.1-0.5 CBC W/PLT COUNT & AUTO [id number] 12:40:00* Test Item Value Reference Range Comments WHITE BLOOD CELL COUNT (BEAKER) (test wupo=763) 9.3 K/ L 3.5-10.5 RED BLOOD CELL COUNT (BEAKER) (test hibr=428) 4.99 M/ L 3.93-5.22 HEMOGLOBIN (BEAKER) (test kquk=956) 13.2 GM/DL 11.2-15.7 HEMATOCRIT (BEAKER) (test uqsw=439) 42.5 % 34.1-44.9 MEAN CORPUSCULAR VOLUME (BEAKER) (test ibqp=469) 85.2 fL 79.4-94.8 MEAN CORPUSCULAR HEMOGLOBIN (BEAKER) (test swgt=367) 26.5 pg 25.6-32.2 MEAN CORPUSCULAR HEMOGLOBIN CONC (BEAKER) (test ixoz=860) 31.1 GM/DL 32.2-35.5 RED CELL DISTRIBUTION WIDTH (BEAKER) (test cxly=119) 14.6 % 11.7-14.4 PLATELET COUNT (BEAKER) (test yrhh=506) 272 K/CU MM 150-450 MEAN PLATELET VOLUME (BEAKER) (test suew=296) 11.5 fL 9.4-12.3 NUCLEATED RED BLOOD CELLS (BEAKER) (test ofao=704) 0 /100 WBC 0-0 NEUTROPHILS RELATIVE PERCENT (BEAKER) (test soaf=385) 66 % LYMPHOCYTES RELATIVE PERCENT (BEAKER) (test jjtj=755) 22 % MONOCYTES RELATIVE PERCENT (BEAKER) (test ohll=832) 8 % EOSINOPHILS RELATIVE PERCENT (BEAKER) (test ssiw=926) 4 % BASOPHILS RELATIVE PERCENT (BEAKER) (test rcmy=306) 1 % NEUTROPHILS ABSOLUTE COUNT (BEAKER) (test kajs=144) 6.10 K/ L 1.56-6.13 LYMPHOCYTES ABSOLUTE COUNT (BEAKER) (test ahub=922) 2.01 K/ L 1.18-3.74 MONOCYTES ABSOLUTE COUNT (BEAKER) (test pkfv=009) 0.72 K/ L 0.24-0.36 EOSINOPHILS ABSOLUTE COUNT (BEAKER) (test alqz=314) 0.39 K/ L 0.04-0.36 BASOPHILS ABSOLUTE COUNT (BEAKER) (test dstu=092) 0.06 K/ L 0.01-0.08 IMMATURE GRANULOCYTES-RELATIVE PERCENT (BEAKER) (test kcja=2139) 0 % 0-1 PROTHROMBIN TIME/[id number] 12:39:00* Test Item Value Reference Range Comments PROTIME (BEAKER) (test ostu=761) 19.0 seconds 11.7-14.7 INR (BEAKER) (test xsjz=768) 1.6 <=5.9 RECOMMENDED COUMADIN/WARFARIN INR THERAPY RANGESSTANDARD DOSE: 2.0 - 3.0 Inclu rodney: PROPHYLAXIS for venous thrombosis, systemic embolization; TREATMENT for georgette ous thrombosis and/or pulmonary embolus.HIGH RISK: Target INR is 2.5-3.5 for pat ients with mechanical heart valves.US ABDOMEN COMPLETE [facility] [address] [address] Patient Name: ZEYAD VILLANUEVA MR #: [id number] : 1945 Age/Sex: 72/F Req #: [id number] Adm Physician: Ordered by: FALLON SERRANO DO Report #: [id number] Location: US Room/Bed: Procedure: [id number] US/US ABDOMEN COMPLETE Exam D ate: 06/04/17 [...]
[2018-06-22] MEDS ORDERED: ONDANSETRON HCL INJ 2MG/ML 2ML 2 MG/ML VIAL ONE (06:17)
[2018-06-22] MEDS ORDERED: SODIUM CHLORIDE 0.9% 1000ML 1,000 ML ONE (06:17)
[2018-06-22] MEDS ORDERED: GABAPENTIN400 MG PO ×2 (06:48)
[2018-06-22] MEDS ORDERED: CYMBALTA30 MG PO (06:48)
[2018-06-22] MEDS ORDERED: METOLAZONE10 MG PO (06:48)
[2018-06-22] MEDS ORDERED: FUROSEMIDE20 MG PO (06:48)
[2018-06-22] MEDS ORDERED: LOPRESSOR25 MG (06:48)
--- NOTE | 2018-06-22 06:48 | NUR ---
REPORT TO CALI GONSALES
[2018-06-22] MEDS ORDERED: ONDANSETRON HCL INJ 2MG/ML 2ML 2 MG/ML VIAL IV STA (07:10)
[2018-06-22] MEDS ORDERED: ONDANSETRON HCL INJ 2MG/ML 2ML 2 MG/ML VIAL IV PRN (07:15)
[2018-06-22] MEDS ORDERED: SODIUM CHLORIDE 0.9% 1000ML 1,000 ML IV SCH (07:15)
[2018-06-22 08:13] LABS: BASOPHILS # (AUTO) 0.1 (0.0-0.1); BASOPHILS % 0.5 % (0.0-1.0); EOSINOPHILS # (AUTO) 0.1 (0.0-0.4); EOSINOPHILS % 1.5 % (0.0-6.0); HEMATOCRIT 41.1 % (34.2-44.1); HEMOGLOBIN 12.8 g/dL (12.0-16.0); LYMPHOCYTES # (AUTO) 0.9 (1.0-3.2); LYMPHOCYTES % 9.4 % (18.0-39.1); MEAN CORPUSCULAR HEMOGLOBIN 25.1 pg (28-32); MEAN CORPUSCULAR HGB CONC 31.1 g/dL (31-35); MEAN CORPUSCULAR VOLUME 80.7 fL (81-99); MONOCYTES # (AUTO) 0.4 (0.2-0.8); MONOCYTES % 4.4 % (4.4-11.3); NEUTROPHILS % 83.8 % (38.7-80.0); PLATELET COUNT 211 x10e3/uL (140-360); RED BLOOD COUNT 5.09 x10e6/uL (3.6-5.1); RED CELL DISTRIBUTION WIDTH 14.4 % (11.7-14.4)
[2018-06-22 08:41] LABS: ALANINE AMINOTRANSFERASE 24 IU/L (0-55); ALBUMIN 3.6 g/dL (3.5-5.0); ALBUMIN/GLOBULIN RATIO 0.9 (0.8-2.0); ALKALINE PHOSPHATASE 89 IU/L (40-150); ANION GAP 15.9 mmol/L (8-16); BLOOD UREA NITROGEN 13 mg/dL (7-26); BUN/CREATININE RATIO 17 (6-25); CALCIUM 9.8 mg/dL (8.4-10.2); CARBON DIOXIDE 29 mmol/L (22-29); CHLORIDE 97 mmol/L (98-107); CREATININE, SERUM 0.77 mg/dL (0.57-1.11); EST GLOMERULAR FILTRATION RATE > 60 ML/MIN (60-); GLUCOSE 145 mg/dL (74-118); POTASSIUM 3.9 mmol/L (3.5-5.1); SODIUM 138 mmol/L (136-145)
[2018-06-22] MEDS ORDERED: HUMALOG MI100 UNIT/2 SQ (10:17)
[2018-06-22] MEDS ORDERED: HUMALOG100 UNIT/1 SQ (10:17)
== END 2018-06-22 08:29 | disposition home or self-care (01) ==
LOC: ER 06:07
DX: R10.84 Generalized abdominal pain (principal); R11.0 Nausea
CPT/HCPCS: 36415; 80053; 85025; 96374; 99283; J2405; J7030

== ENCOUNTER → 2018-06-22 | Day surgery (SDC) | payer MEDICARE ==
--- NOTE | 2018-06-19 14:26 | Diagnostic Imaging Report ---
EXAMINATION: CHEST 2 VIEWS INDICATION: Pre-op. COMPARISON: None FINDINGS: TUBES and LINES: Left-sided AICD with leads overlying the right ventricle. LUNGS: Moderate inflation of lungs. Bilateral mild interstitial opacities which are basilar predominant. Calcified nodule in the left lower lung, consistent with granuloma. PLEURA: No pleural effusion or pneumothorax. HEART AND MEDIASTINUM: There is moderate cardiomegaly. Atherosclerotic calcification of the aortic arch. BONES AND SOFT TISSUES: No acute osseous abnormality. Status post median sternotomy. S shaped scoliosis of the thoracolumbar spine. UPPER ABDOMEN: No free air under the diaphragm. IMPRESSION: Bilateral mild interstitial opacities may reflect mild fibrotic changes versus interstitial edema. Moderate cardiomegaly. Signed by: Dr. Ryanne Walton MD on 06/19/2018 2:23 PM
[~2018-06-22] MED LIST changes: +FENTANYL CITRATE/PF 100MCG/2 ML INJ ONE; +FUROSEMIDE20 MG PO; +GABAPENTIN400 MG PO; +GLUCAGON FOR INJ 1 MG VIAL ONE; +HUMALOG MI100 UNIT/2 SQ; +HUMALOG100 UNIT/1 SQ; -IOPAMIDOL 370 MG/ML 200 ML INFUS..BTL INJ ONE; -LEVOCETIRIZINE D5 MG; +LEVOCETIRIZINE D5 MG PO; +LOPRESSOR25 MG; +METOLAZONE10 MG PO; +MIDAZOLAM HCL 2 MG/2 ML VIAL ONE; -OMEPRAZOLE40 MG; +OMEPRAZOLE40 MG PO; +ONDANSETRON HCL INJ 2MG/ML 2ML 2 MG/ML VIAL ONE; -PRADAXA150 MG; +PRADAXA150 MG PO; +PROPOFOL IV EMULSION 10 MG/ML 20 ML VIAL ONE; +PROPOFOL IV EMULSION 10 MG/ML 50 ML VIAL ONE; -SODIUM CHLORIDE 0.9% 50ML 50 ML ONE; -XIFAXAN550 MG; +XIFAXAN550 MG PO
--- OUTSIDE RECORDS SUMMARY | 2018-06-22 09:31 | XMS REPORT | Clinical Summary ---
Author Author [facility] Address Unknown Phone Unavailable Care Team Providers Care Cdl Truck Driver Name Role Phone Tc Rider PCP Allergies [...] time, a liver biopsy would likely not tire changer. A comprehensive work up will be [...] 2 diabetes mellitus with complication, unspecified whether assistant terminal manager insulin use (HCC); Osteoarthritis of multiple joints, [...] 2 diabetes mellitus with complication, unspecified whether assistant terminal manager insulin use (HCC); Immunity status testing; Metabolic [...] Taken Vital Sign Reading 01/13/2018 9:49 AM RELIEF DOCKING MASTER Blood Pressure 116/69 01/13/2018 9:49 AM RELIEF DOCKING MASTER Pulse 70 01/13/2018 9:49 AM RELIEF DOCKING MASTER Temperature 37 C (98.6 F) 01/13/2018 9:49 AM RELIEF DOCKING MASTER Respiratory Rate 16 01/13/2018 10:32 AM RELIEF DOCKING MASTER Oxygen Saturation 85% - Inhaled Oxygen - Concentration 01/13/2018 9:49 AM RELIEF DOCKING MASTER Weight 91.4 kg (201 lb 8 oz) 01/13/2018 9:49 AM RELIEF DOCKING MASTER Height 151.1 cm (4' 11.5") 01/13/2018 9:49 AM RELIEF DOCKING MASTER Body Mass Index 40.02 Plan of Treatment Care Team Description Date Type Specialty Gutierrez Melgoza MD [address] [facility] [address] [place], [place] [id number] Resource, [facility] 07/15/2018 Office Visit Hepatology Health Maintenance Due Date Last Done Comments INFLUENZA VACCINE 11/17/2017 Procedures Comments Procedure Name Priority Date/Time Associated Diagnosis CBC W/PLT COUNT & AUTO Routine 01/13/2018 Hepatic cirrhosis, DIFFERENTIAL 11:11 AM RELIEF DOCKING MASTER unspecified hepatic cirrhosis type, unspecified whether ascites present (HCC) ALPHA FETOPROTEIN (AFP), Routine 01/13/2018 Hepatic cirrhosis, TUMOR MARKER 11:11 AM RELIEF DOCKING MASTER unspecified hepatic cirrhosis type, unspecified whether ascites present (HCC) PROTHROMBIN TIME/INR Routine 01/13/2018 Hepatic cirrhosis, 11:11 AM RELIEF DOCKING MASTER unspecified hepatic cirrhosis type, unspecified whether ascites present (HCC) CBC W/PLT COUNT & AUTO Routine 01/13/2018 Hepatic cirrhosis, DIFFERENTIAL 11:11 AM RELIEF DOCKING MASTER unspecified hepatic cirrhosis type, unspecified whether ascites present (HCC) HEPATIC FUNCTION PANEL Routine 01/13/2018 Hepatic cirrhosis, 11:11 AM RELIEF DOCKING MASTER unspecified hepatic cirrhosis type, unspecified whether ascites present (HCC) BASIC METABOLIC PANEL (7) Routine 01/13/2018 Hepatic cirrhosis, 11:11 AM RELIEF DOCKING MASTER unspecified hepatic cirrhosis type, unspecified whether ascites [...] count + automated diff (01/13/2018 11:11 AM RELIEF DOCKING MASTER) Only the most recent of 2 results within the time period is included. WBC 13.1 (H) 3.5 - 10.5 K/L [facility] RBC 5.10 3.93 - 5.22 M/L [facility] Hemoglobin 13.3 11.2 - 15.7 GM/DL [facility] Hematocrit 43.3 34.1 - 44.9 % [facility] MCV 84.9 79.4 - 94.8 fL [facility] MCH 26.1 25.6 - 32.2 pg [facility] MCHC 30.7 (L) 32.2 - 35.5 GM/DL [facility] RDW 14.9 (H) 11.7 - 14.4 % [facility] Platelets 226 150 - 450 K/CU MM [facility] MPV 11.4 9.4 - 12.3 fL [facility] nRBC 0 0 - 0 /100 WBC [facility] % Neutros 74 % [facility] % Lymphs 17 % [facility] % Monos 6 % [facility] % Eos 3 % [facility] % Baso 1 % [facility] # Neutros 9.64 (H) 1.56 - 6.13 K/L [facility] # Lymphs 2.17 1.18 - 3.74 K/L [facility] # Monos 0.81 (H) 0.24 - 0.36 K/L [facility] # Eos 0.36 0.04 - 0.36 K/L [facility] # Baso 0.08 0.01 - 0.08 K/L [facility] Immature 1 0 - 1 % [facility] Granulocytes-[facility] Specimen Blood Performing Organization Address City/State/Zipcode Phone Number [place] [phone] [facility] * Alpha fetoprotein (AFP), tumor marker (01/13/2018 11:11 AM RELIEF DOCKING MASTER) Only the most recent of 2 results within the time period is included. Alpha-Fetoprotein 2.9 <10.0 ng/mL [facility] Specimen Blood Performing Organization Address City/State/Zipcode Phone Number [address] [address] [facility] * Pro-time/INR (01/13/2018 11:11 AM RELIEF DOCKING MASTER) Only the most recent of 2 results within the time period is included. Protime 15.6 (H) 11.7 - 14.7 seconds [facility] INR 1.2 <=5.9 [facility] Specimen Blood Narrative Performed At RECOMMENDED COUMADIN/WARFARIN INR THERAPY RANGES [facility] STANDARD DOSE: 2.0 - 3.0 Includes: PROPHYLAXIS for venous thrombosis, [facility] systemic embolization; TREATMENT for venous thrombosis and/or pulmonary embolus. HIGH RISK: Target INR is 2.5-3.5 for patients with mechanical heart valves. Performing Organization Address [facility] Phone Number [address] [address] [facility] * Hepatic function panel (01/13/2018 11:11 AM RELIEF DOCKING MASTER) Only the most recent of 2 results within the time period is included. Protein, Total 7.4 6.0 - 8.3 gm/dL [facility] Albumin 4.0 3.5 - 5.0 g/dL [facility] Total Bilirubin 0.4 0.2 - 1.2 mg/dL [facility] Bilirubin, Direct 0.2 0.1 - 0.5 mg/dL [facility] Alkaline Phosphatase 99 40 - 150 U/L [facility] AST 20 5 - 34 U/L [facility] ALT 12 6 - 55 U/L [facility] Specimen Blood Performing Organization Address City/[facility] Phone Number [address] [address] [facility] * Basic Metabolic Panel (01/13/2018 11:11 AM RELIEF DOCKING MASTER) Only the most recent of 2 results within the time period is included. Sodium 140 136 - 145 meq/L [facility] Potassium 3.4 (L) 3.5 - 5.1 meq/L [facility] Chloride 99 98 - 107 meq/L [facility] CO2 30 (H) 22 - 29 meq/L [facility] BUN 18 7 - 21 mg/dL [facility] Creatinine 0.79 0.57 - 1.25 mg/dL [facility] Glucose 85 70 - 105 mg/dL [facility] Calcium 9.4 8.4 - 10.2 mg/dL [facility] EGFR 71Comment: ESTIMATED GFR IS mL/min/1.73 sq m [facility] NOT ACCURATE CREATININE [facility] CLEARANCE IN PREDICTING GLOMERULAR FILTRATION RATE. ESTIMATED GFR IS NOT APPLICABLE FOR DIALYSIS PATIENTS. Specimen Blood Performing Organization Address City/State/Zipcode Phone Number [facility] [address] [place] [address] [facility] after 06/21/2017 Insurance Payer Benefit Subscriber ID Type Phone Address Plan / Group [employer] - MEDICARE MGD HU[employer]NA xxxxxxxxx [facility] MEDICARE Contracted ADV
[2018-06-22 13:55] VITALS: BP 133/68
--- NOTE | 2018-06-22 21:54 | Operative Report ---
DATE OF PROCEDURE: 06/22/2018 SURGEON: Lloyd Valdez MD PROCEDURES: 1. Esophagogastroduodenoscopy with esophageal dilatation and biopsies. 2. Colonoscopy with polypectomy INDICATIONS FOR EGD: Dysphagia, heartburn. INDICATIONS FOR COLONOSCOPY: Surveillance colonoscopy, personal history of colon polyps, and diarrhea. MEDICATIONS: The patient was done under MAC, please see anesthesiologist's note. PROCEDURE IN DETAIL #1: Endoscopy: With the patient in left lateral decubitus position, a flexible fiberoptic Olympus gastroscope was introduced into the esophagus under direct visualization without any difficulty. There was some patchy erythema noted in distal esophagus. The esophagus was dilated to size 52-Thai Lilly. The scope was then advanced with ease into the stomach, traversing a small sliding hiatal hernia. Mucosa overlying the antrum and the body revealed some patchy intense erythema and low-grade to moderate edema and biopsies were obtained and sent to stain for H pylori. The pylorus was of normal contour and shape, was intubated with ease and the scope was advanced all the way to the second portion of the duodenum. Biopsies were obtained from the proximal second portion to rule out sprue as well as from the duodenal bulb. The scope was then withdrawn back into the stomach and retroflexed mucosa overlying the fundus and cardia appeared to be within normal limits. The scope was then straightened out, it was subsequently withdrawn. The patient tolerated the procedure well. IMPRESSION: 1. Distal esophagitis, mild. 2. Esophagus dilated to size 52-Thai Lilly. 3. Small sliding hiatal hernia. 4. Gastritis, biopsied, biopsies sent to stain for H pylori. 5. Rule out sprue. PLAN: Follow up histology. Increase omeprazole to 40 mg one p.o. before meals b.i.d. DESCRIPTION OF PROCEDURE #2: Colonoscopy: The patient was then turned around after adequate lubrication of the anal canal. Flexible fiberoptic Olympus colonoscope was inserted into the rectum with ease and advanced all the way to the cecum. It was then withdrawn slowly. Mucosa overlying the cecum appeared to be within normal limits. Mucosa overlying the ascending colon was within normal limits as well. One polyp was hot biopsied from the transverse colon. Diverticular disease was noted primarily in the left colon. There were some patchy mild inflammatory changes noted in the distal descending and the sigmoid as well as the rectum and random biopsies were obtained. The scope was then retroflexed into the distal rectum. Small internal hemorrhoids were noted, none of which was actively bleeding. The scope was then straightened out, it was subsequently withdrawn. The patient tolerated the procedure well. IMPRESSION: 1. Transverse colon polyp, hot biopsied. 2. Diverticulosis. 3. Mild patchy left-sided colitis. 4. Internal hemorrhoids, none actively bleeding. PLAN: Followup histology. Initiate Bentyl 20 mg one p.o. t.i.d. and VSL #3 one p.o. daily. The patient might benefit from a followup colonoscopy in 3 to 5 years. Lloyd Valdez MD [facility] /[id number] cc: MD Raven Alexander MD
== END | disposition home or self-care (01) ==
LOC: OR 09:29
PROVIDERS: ATTEND Internal Medicine Gastroenterology
DX: K20.9 Esophagitis, unspecified (principal); K63.5 Polyp of colon; K51.50 Left sided colitis without complications; K29.60 Other gastritis without bleeding; K29.80 Duodenitis without bleeding; K44.9 Diaphragmatic hernia without obstruction or gangrene; K57.30 Diverticulosis of large intestine without perforation or abscess without bleeding; K64.8 Other hemorrhoids; K74.60 Unspecified cirrhosis of liver; E11.9 Type 2 diabetes mellitus without complications; I27.20 Pulmonary hypertension, unspecified; J44.9 Chronic obstructive pulmonary disease, unspecified; G47.33 Obstructive sleep apnea (adult) (pediatric); I25.810 Atherosclerosis of coronary artery bypass graft(s) without angina pectoris; I11.0 Hypertensive heart disease with heart failure; I50.9 Heart failure, unspecified; G62.9 Polyneuropathy, unspecified; D86.9 Sarcoidosis, unspecified; Z88.1 Allergy status to other antibiotic agents; Z88.3 Allergy status to other anti-infective agents; Z88.8 Allergy status to other drugs, medicaments and biological substances; Z01.818 Encounter for other preprocedural examination; Z99.81 Dependence on supplemental oxygen; Z68.35 Body mass index [BMI] 35.0-35.9, adult; Z95.1 Presence of aortocoronary bypass graft; Z95.810 Presence of automatic (implantable) cardiac defibrillator; Z80.0 Family history of malignant neoplasm of digestive organs
CPT/HCPCS: 36415; 43239; 43450; 45380; 45384; 71046; 82948; 88305; 88312; 93005; J1610; J2250; J2405; J2704 ×2; 45378

== ENCOUNTER → 2018-09-03 | Outpatient (CLI) | payer MEDICARE ==
[~2018-09-03] MED LIST changes: +FUROSEMIDE20 MG PO; +GABAPENTIN400 MG PO; +HUMALOG100 UNIT/1 SQ; +LOPRESSOR25 MG; +METOLAZONE10 MG PO
--- NOTE | 2018-09-03 12:59 | Diagnostic Imaging Report ---
EXAM: US ABDOMEN COMPLETE DATE: 09/03/2018 8:43 AM INDICATION: Cirrhosis COMPARISON: None TECHNIQUE: Transverse and longitudinal mcdonald scale and color doppler sonographic images of the upper abdomen were obtained. FINDINGS: There is no evidence of fluid or masses seen in the area of clinical concern in the right lower quadrant. LIVER 14.5 cm in the right midclavicular line. Normal echogenicity of the liver , no masses. Minimal surface contour nodularity. SPLEEN 12.0 cm in maximum diameter. Scattered small calcifications consistent with prior granulomatous disease. Normal echogenicity, no masses. GALLBLADDER No gallbladder wall thickening (0.2cm), distension, stone, or pericholecystic fluid. Negative reported sonographic Luis's sign. BILE DUCTS No intra nor extra-hepatic biliary dilation. Common bile duct measures 0.4cm PANCREAS: Visualized portions are normal. RIGHT KIDNEY: 10.7 cm Echogenicity: Normal Collecting System: No hydronephrosis Stones: None Cyst/Mass: None LEFT KIDNEY: 10.7 cm Echogenicity: Normal Collecting System: No hydronephrosis Stones: None Cyst/Mass: None VESSELS: Aorta: Visualized portions are within normal size limits Inferior Vena Cava: Visualized portions are normal Main Portal Vein: 1.4 cm, normal size with hepatopetal flow. FREE FLUID: None IMPRESSION: Minimal liver surface contour nodularity which can be seen with early cirrhosis. Signed by: Rachael Machado MD on 09/03/2018 12:56 PM
== END ==
LOC: US 08:22
PROVIDERS: ATTEND Family Medicine
DX: K74.60 Unspecified cirrhosis of liver (principal); R11.0 Nausea; Z12.9 Encounter for screening for malignant neoplasm, site unspecified
CPT/HCPCS: 76700

== ENCOUNTER → 2019-09-29 | Outpatient (CLI) | payer MEDICARE ==
--- NOTE | 2019-09-30 08:42 | Diagnostic Imaging Report ---
EXAM: US ABDOMEN COMPLETE DATE: 09/29/2019 10:12 AM INDICATION: Liver cirrhosis COMPARISON: Abdominal ultrasound of 09/03/2018 TECHNIQUE: Transverse and longitudinal mcdonald scale and color doppler sonographic images of the upper abdomen were obtained. FINDINGS: LIVER 14.0 cm in the right midclavicular line. Normal echogenicity of the liver with minimally nodular surface contour, no masses. SPLEEN 10.0 cm in maximum diameter. Normal echogenicity. Punctate echogenic foci, likely calcified granulomas. GALLBLADDER No gallbladder wall thickening, distension, stone, or pericholecystic fluid. Negative reported sonographic Luis's sign. The gallbladder wall measures 2mm BILE DUCTS No intra nor extra-hepatic biliary dilation. Common bile duct measures 5mm PANCREAS: Visualized portions are normal. RIGHT KIDNEY: 10.7 cm Echogenicity: Normal Collecting System: No hydronephrosis Stones: None Cyst/Mass: None LEFT KIDNEY: 9.8 cm Echogenicity: Normal Collecting System: No hydronephrosis Stones: None Cyst/Mass: None VESSELS: Aorta: Visualized portions are within normal size limits Inferior Vena Cava: Visualized portions are normal Main Portal Vein: 1.2 cm, normal size with hepatopetal flow. FREE FLUID: None IMPRESSION: Unchanged minimally nodular liver surface contour can be seen with early cirrhosis. Signed by: Rachael Machado MD on 09/30/2019 8:38 AM
== END ==
LOC: US 09:52
PROVIDERS: ATTEND Registered Nurse
DX: K74.60 Unspecified cirrhosis of liver (principal)
CPT/HCPCS: 76700

== ENCOUNTER → 2019-10-19 | Outpatient (CLI) | payer MEDICARE ==
--- NOTE | 2019-10-19 10:38 | Diagnostic Imaging Report ---
EXAM: US ABDOMEN COMPLETE DATE: 10/19/2019 10:00 AM INDICATION: ^CIRRHOSIS OF LIVER COMPARISON: Ultrasound dated 09/29/2019. CT dated 01/23/2013 TECHNIQUE: Transverse and longitudinal mcdonald scale and color doppler sonographic images of the abdomen were obtained. FINDINGS: LIVER 12.5 cm in the right midclavicular line. Coarsened echogenic liver with slightly nodular contours are noted. No suspicious mass. SPLEEN 10.3 cm in maximum diameter. Stable echogenic foci consistent with known calcifications. Normal echogenicity, no masses. GALLBLADDER No gallbladder wall thickening, distension, stone, or pericholecystic fluid. Negative reported sonographic Luis's sign. BILE DUCTS No intra nor extra-hepatic biliary dilation. Common bile duct measures 0.3cm PANCREAS: Visualized portions are normal. RIGHT KIDNEY: 11.4 cm Echogenicity: Normal Collecting System: No hydronephrosis Stones: None Cyst/Mass: None LEFT KIDNEY: 9.6 cm Echogenicity: Normal Collecting System: No hydronephrosis Stones: None Cyst/Mass: None VESSELS: Aorta: Visualized portions are within normal size limits Inferior Vena Cava: Visualized portions are normal Main Portal Vein: 1.1 cm, normal size with hepatopetal flow. FREE FLUID: None IMPRESSION: Stable mild cirrhotic liver morphology. No suspicious liver mass. No evidence of portal hypertension. Signed by: Todd Crocker MD on 10/19/2019 10:34 AM
== END ==
LOC: US 09:35
PROVIDERS: ATTEND Family Medicine
DX: K74.69 Other cirrhosis of liver (principal)
CPT/HCPCS: 76700

== ENCOUNTER → 2020-04-13 | Outpatient (CLI) | payer MEDICARE | LOC: US 13:13 | PROVIDERS: ATTEND Family Medicine | DX: K74.69 Other cirrhosis of liver (principal); R93.2 Abnormal findings on diagnostic imaging of liver and biliary tract | CPT/HCPCS: 76700 ==

== ENCOUNTER → 2020-09-26 | Outpatient (CLI) | payer MEDICARE | LOC: US 09:15 | PROVIDERS: ATTEND Nurse Practitioner Acute Care | DX: K74.60 Unspecified cirrhosis of liver (principal) | CPT/HCPCS: 76700 ==

== ENCOUNTER → 2021-02-15 | Outpatient (CLI) | payer MEDICARE | LOC: CT 13:18 | PROVIDERS: ATTEND Family Medicine | DX: S40.012A Contusion of left shoulder, initial encounter (principal); W19.XXXA Unspecified fall, initial encounter | CPT/HCPCS: 71250 ==

== ENCOUNTER → 2021-04-03 | Outpatient (CLI) | payer MEDICARE ==
[2021-04-03 16:48] LABS: BASOPHILS # (AUTO) 0.1 (0.0-0.1); BASOPHILS % 0.6 % (0.0-1.0); EOSINOPHILS # (AUTO) 0.3 (0.0-0.4); EOSINOPHILS % 2.9 % (0.0-6.0); HEMATOCRIT 39.5 % (34.2-44.1); HEMOGLOBIN 12.1 g/dL (12.0-16.0); LYMPHOCYTES # (AUTO) 1.7 (1.0-3.2); LYMPHOCYTES % 16.9 % (18.0-39.1); MEAN CORPUSCULAR HEMOGLOBIN 26.6 pg (28-32); MEAN CORPUSCULAR HGB CONC 30.6 g/dL (31-35); MEAN CORPUSCULAR VOLUME 86.8 fL (81-99); MONOCYTES # (AUTO) 0.8 (0.2-0.8); MONOCYTES % 8.3 % (4.4-11.3); NEUTROPHILS % 71.1 % (38.7-80.0); PLATELET COUNT 281 x10e3/uL (140-360); RED BLOOD COUNT 4.55 x10e6/uL (3.6-5.1); RED CELL DISTRIBUTION WIDTH 13.2 % (11.7-14.4)
[2021-04-03 16:57] LABS: INR 1.13; PROTHROMBIN TIME 15.3 seconds (11.9-14.5)
[2021-04-03 17:02] LABS: ANION GAP 16.8 mmol/L (8-16); CALCIUM 9.4 mg/dL (8.4-10.2); CREATININE, SERUM 0.66 mg/dL (0.57-1.11); POTASSIUM 3.8 mmol/L (3.5-5.1)
== END ==
LOC: US 09:10
PROVIDERS: ATTEND Nurse Practitioner Acute Care
DX: Z12.9 Encounter for screening for malignant neoplasm, site unspecified (principal); Z01.84 Encounter for antibody response examination; K74.60 Unspecified cirrhosis of liver; E11.9 Type 2 diabetes mellitus without complications; R09.02 Hypoxemia; R16.0 Hepatomegaly, not elsewhere classified; I85.10 Secondary esophageal varices without bleeding; E88.81 Metabolic syndrome and other insulin resistance; M15.9 Polyosteoarthritis, unspecified; K72.90 Hepatic failure, unspecified without coma; E66.01 Morbid (severe) obesity due to excess calories
CPT/HCPCS: 36415; 76700; 80048; 85025; 85610

== ENCOUNTER 2021-04-18 10:58 | Observation (INO) | payer MEDICARE, MEDICAID ==
[~2021-04-18] VITALS: Ht 152.4 cm; Wt 74.8 kg
[2021-04-18 11:47] LABS: BASOPHILS # (AUTO) 0.1 (0.0-0.1); BASOPHILS % 0.8 % (0.0-1.0); EOSINOPHILS # (AUTO) 0.4 (0.0-0.4); EOSINOPHILS % 3.4 % (0.0-6.0); HEMATOCRIT 39.6 % (34.2-44.1); HEMOGLOBIN 12.3 g/dL (12.0-16.0); LYMPHOCYTES # (AUTO) 1.6 (1.0-3.2); LYMPHOCYTES % 15.4 % (18.0-39.1); MEAN CORPUSCULAR HEMOGLOBIN 26.5 pg (28-32); MEAN CORPUSCULAR HGB CONC 31.1 g/dL (31-35); MEAN CORPUSCULAR VOLUME 85.3 fL (81-99); MONOCYTES # (AUTO) 0.8 (0.2-0.8); NEUTROPHILS # (AUTO) 7.5 (2.1-6.9); PLATELET COUNT 233 x10e3/uL (140-360); RED BLOOD COUNT 4.64 x10e6/uL (3.6-5.1); RED CELL DISTRIBUTION WIDTH 13.2 % (11.7-14.4)
[2021-04-18 11:49] LABS: CLARITY,URINE CLEAR (CLEAR); COLOR,URINE YELLOW (YELLOW)
[2021-04-18 11:50] LABS: KETONES,URINE NEGATIVE (NEGATIVE); LEUKOCYTE ESTERASE ,URINE NEGATIVE (NEGATIVE); NITRITE,URINE NEGATIVE (NEGATIVE); PROTEIN,URINE DIPSTICK NEGATIVE (NEGATIVE); URINE UROBILINOGEN 0.2 mg/dL (0.2 - 1)
[2021-04-18 12:01] LABS: AMPHETAMINES SCREEN,URINE NEGATIVE (NEGATIVE); BENZODIAZEPINES SCREEN,URINE NEGATIVE (NEGATIVE); PHENCYCLIDINE SCREEN,URINE NEGATIVE (NEGATIVE)
[2021-04-18 12:10] LABS: SALICYLATE < 5.0 mg/dL (0-30)
[2021-04-18 12:14] LABS: ALBUMIN 3.6 g/dL (3.5-5.0); ANION GAP 14.7 mmol/L (8-16); CALCIUM 9.3 mg/dL (8.4-10.2); CREATININE, SERUM 0.65 mg/dL (0.57-1.11); INR 1.11; MAGNESIUM 1.2 MG/DL (1.3-2.1); POTASSIUM 3.7 mmol/L (3.5-5.1); PROTHROMBIN TIME 15.3 seconds (11.9-14.5)
[2021-04-18 12:20] LABS: B-TYPE NATRIURETIC PEPTIDE2 120.9 pg/mL (0-100)
[2021-04-18 12:22] LABS: CREATINE KINASE MB 6.5 ng/mL (0-5.0)
[2021-04-18 12:36] LABS: BACTERIA,URINE MANY /HPF; EPITHELIAL CELLS,URINE RARE /LPF
[2021-04-18] MEDS ORDERED: DEXTROSE 50% SYRINGE 50 ML IV STA (13:16)
[2021-04-18] MEDS ORDERED: LORAZEPAM INJ 2 MG/ML VIAL ONE (13:22)
[2021-04-18] MEDS ORDERED: SODIUM CHLORIDE 0.9% 1000ML 1,000 ML ONE (13:26)
[2021-04-18] MEDS ORDERED: DEXTROSE 50% SYRINGE 50 ML IV ONE (13:28)
[2021-04-18] MEDS ORDERED: LEVETIRACETAM 500MG/5ML VIAL 1,000 MG in SODIUM CHLORIDE 0.9% 100 ML IV ONE (13:30)
[2021-04-18] MEDS ORDERED: D5.45%NS/KCL 20MEQ 1,000 ML IV ONE (14:00)
[2021-04-18] MEDS: CEFTRIAXONE 1 GM in SODIUM CHLORIDE 0.9% 50ML 50 ML IV SCH ×2 (14:10→22:03)
[2021-04-18] MEDS ORDERED: ONDANSETRON HCL INJ 2MG/ML 2ML 2 MG/ML VIAL IV PRN (14:30)
[2021-04-18] MEDS ORDERED: DEXTROSE 50% SYRINGE 50 ML IV PRN ×2 (14:30→20:15)
[2021-04-18 17:31] VITALS: BP 105/52
[2021-04-18 17:36] VITALS: BP 105/52
[2021-04-18 18:10] VITALS: BP 105/52
[2021-04-18 19:08] LABS: CREATINE KINASE MB 6.3 ng/mL (0-5.0)
[2021-04-18] MEDS ORDERED: HYDROCODONE/APAP 10MG-325MG TAB PO PRN (20:15)
[2021-04-18] MEDS ORDERED: TRAZODONE HCL 50 MG TAB PO PRN (20:15)
[2021-04-18 20:43] VITALS: BP 120/58
[2021-04-18] MEDS ORDERED: NON-FORMULARY MEDICATION (Potassium Chloride 8 MEQ) PO SCH (21:00)
[2021-04-18] MEDS ORDERED: GABAPENTIN 400 MG CAP PO SCH (21:00)
[2021-04-18] MEDS ORDERED: ROPINIROLE HCL 1 MG TAB PO SCH (21:00)
[2021-04-18] MEDS ORDERED: LORATADINE 10 MG TAB PO SCH (21:00)
[2021-04-18] MEDS: SUCRALFATE 1 GM TAB PO SCH (22:03)
[2021-04-18] MEDS: INSULIN REGULAR, HUMAN 100 UNIT/1 ML SQ SCH (22:03)
[2021-04-18] MEDS: INSULIN GLARGINE 100 UNITS/ML VIAL SQ SCH (22:03)
[2021-04-19 00:34] LABS: CREATINE KINASE MB 3.5 ng/mL (0-5.0)
[2021-04-19 00:35] VITALS: BP 146/70
[2021-04-19 02:45] VITALS: BP 146/70
[2021-04-19 05:05] LABS: BASOPHILS # (AUTO) 0.1 (0.0-0.1); BASOPHILS % 0.7 % (0.0-1.0); EOSINOPHILS # (AUTO) 0.4 (0.0-0.4); EOSINOPHILS % 4.1 % (0.0-6.0); HEMATOCRIT 37.4 % (34.2-44.1); HEMOGLOBIN 11.4 g/dL (12.0-16.0); LYMPHOCYTES # (AUTO) 1.9 (1.0-3.2); LYMPHOCYTES % 21.5 % (18.0-39.1); MEAN CORPUSCULAR HEMOGLOBIN 26.2 pg (28-32); MEAN CORPUSCULAR HGB CONC 30.5 g/dL (31-35); MONOCYTES # (AUTO) 0.8 (0.2-0.8); NEUTROPHILS # (AUTO) 5.8 (2.1-6.9); NEUTROPHILS % 64.4 % (38.7-80.0); PLATELET COUNT 205 x10e3/uL (140-360); RED BLOOD COUNT 4.35 x10e6/uL (3.6-5.1); RED CELL DISTRIBUTION WIDTH 13.2 % (11.7-14.4)
[2021-04-19 05:07] VITALS: BP 129/71
[2021-04-19 05:20] LABS: ANION GAP 11.1 mmol/L (8-16); CALCIUM 8.8 mg/dL (8.4-10.2); CHOL/HDL RATIO 3.6 (3.0-3.6); CREATININE, SERUM 0.69 mg/dL (0.57-1.11); POTASSIUM 3.1 mmol/L (3.5-5.1)
[2021-04-19] MEDS: INSULIN REGULAR, HUMAN 100 UNIT/1 ML SQ SCH ×2 (07:30→11:30)
[2021-04-19] MEDS ORDERED: SODIUM CHLORIDE 0.9% 250ML 250 ML ONE (07:44)
[2021-04-19 08:00] VITALS: BP 129/71
[2021-04-19 08:10] VITALS: BP 125/70
[2021-04-19] MEDS ORDERED: LISINOPRIL 2.5 MG TAB PO SCH (09:00)
[2021-04-19] MEDS ORDERED: PANTOPRAZOLE SOD 40 MG TABEC PO SCH (09:00)
[2021-04-19] MEDS: CEFTRIAXONE 1 GM in SODIUM CHLORIDE 0.9% 50ML 50 ML IV SCH (09:00)
[2021-04-19] MEDS ORDERED: FINASTERIDE 5 MG TAB PO SCH (09:00)
[2021-04-19] MEDS ORDERED: RIFAXIMIN 550 MG TABLET PO SCH (09:00)
[2021-04-19] MEDS ORDERED: DULOXETINE HCL 30 MG DELAYED RELEASE PO SCH (09:00)
[2021-04-19] MEDS ORDERED: OXYBUTYNIN CHLORIDE 5 MG TAB PO SCH (09:00)
[2021-04-19] MEDS ORDERED: METOLAZONE 5 MG TAB PO SCH (09:00)
[2021-04-19] MEDS ORDERED: GABAPENTIN 400 MG CAP PO SCH (09:00)
[2021-04-19] MEDS ORDERED: METOPROLOL TARTRATE 25 MG TAB PO SCH (09:00)
[2021-04-19] MEDS ORDERED: DABIGATRAN ETEXILATE 75 MG CAP PO SCH (09:00)
[2021-04-19] MEDS ORDERED: FUROSEMIDE 20 MG TAB PO SCH (09:00)
[2021-04-19] MEDS ORDERED: ISOSORBIDE MONONITRATE 30 MG TAB CR PO SCH (09:00)
[2021-04-19] MEDS: INSULIN GLARGINE 100 UNITS/ML VIAL SQ SCH (09:00)
[2021-04-19] MEDS: SUCRALFATE 1 GM TAB PO SCH (09:00)
[2021-04-19] MEDS ORDERED: POTASSIUM CHLORIDE 20 MEQ TAB CR PO ONE ×3 (10:30→15:00)
[2021-04-19 13:12] VITALS: BP 130/65
[2021-04-19] MEDS ORDERED: LANTUS 3ML100 UNITS/ SC (14:39)
[2021-04-19] MEDS ORDERED: POTASSIUM CHLORIDE 10MEQ EA PO SCH (21:00)
== END 2021-04-19 16:06 | disposition home or self-care (01) ==
LOC: ER 11:12 → INTOOBSV 14:29 → ERHOLD 14:29 → MED/SURG2 16:54
DX: E11.649 Type 2 diabetes mellitus with hypoglycemia without coma (principal); N39.0 Urinary tract infection, site not specified; Z95.1 Presence of aortocoronary bypass graft; R56.9 Unspecified convulsions; I25.10 Atherosclerotic heart disease of native coronary artery without angina pectoris; I50.9 Heart failure, unspecified; I11.0 Hypertensive heart disease with heart failure; F03.90 Unspecified dementia, unspecified severity, without behavioral disturbance, psychotic disturbance, mood disturbance, and anxiety; D86.9 Sarcoidosis, unspecified; Z20.822 Contact with and (suspected) exposure to COVID-19; Z79.4 Long term (current) use of insulin
CPT/HCPCS: 36415 ×2; 70450; 71045; 80053 ×2; 80061; 80307; 80320; 80329 ×2; 81001; 82140; 82550 ×2; 82553 ×2; 82948 ×2; 83735; 83880; 84132; 84484 ×2; 85025 ×2; 85610; 85730; 87040; 87086; 87186; 93005; 94799 ×2; 99285; G0378 ×2; J0696 ×2; J1815; J1817; J7030; J7050; J7799; S0164; U0002; J2060

== ENCOUNTER 2021-10-13 23:01 | Emergency (ER) | payer MEDICARE, OTHER ==
[~2021-10-13] VITALS: Ht 152.4 cm; Wt 72.6 kg
[~2021-10-13 23:01] MED LIST changes: +LANTUS 3ML100 UNITS/ SC; -LOPRESSOR25 MG; +NITROGLYCERIN0.4 MG SL; +SYMBICORT 16010.2 GM INH
== END 2021-10-14 03:25 | disposition home or self-care (01) ==
LOC: ER 23:07
DX: S00.03XA Contusion of scalp, initial encounter (principal); S40.021A Contusion of right upper arm, initial encounter; S80.212A Abrasion, left knee, initial encounter; S80.211A Abrasion, right knee, initial encounter; W01.0XXA Fall on same level from slipping, tripping and stumbling without subsequent striking against object, initial encounter; Y92.89 Other specified places as the place of occurrence of the external cause; E11.9 Type 2 diabetes mellitus without complications; I50.9 Heart failure, unspecified; K21.9 Gastro-esophageal reflux disease without esophagitis; F32.A Depression, unspecified; Z86.73 Personal history of transient ischemic attack (TIA), and cerebral infarction without residual deficits; I25.2 Old myocardial infarction; Z95.810 Presence of automatic (implantable) cardiac defibrillator; Z95.1 Presence of aortocoronary bypass graft
CPT/HCPCS: 70450; 72125; 99284